=== PATIENT | female | born 1945 | race Caucasian/White ===

== ENCOUNTER 2017-01-06 18:53 | Emergency (ER) | payer MEDICARE ==
[~2017-01-06] VITALS: Ht 154.9 cm; Wt 86.5 kg
[~2017-01-06 18:53] MED LIST: ACID1TAB7 PO; ACLI400A2 INH; ALPR0.25 PO; ALPR0.254 PO; AMLO5TAB2 PO; ASPI-621 PO; ATOR40TA78 PO; CEFD300C37 PO; CITA20TA5 PO; CITA20TA9 PO; DOXY100T PO; ENOX40SY4 SQ; FURO-92 PO; FURO-93 PO; FURO20TA3 PO; FURO40TA6 PO; GABA300C10 PO; GUAI10LI PO; GUAI600T22 PO; HYDR1CAP PO; LORA10TA3 PO; MAGN400T26 PO; MECL25TA4 PO; METF500T PO; METF500T4 PO; METO200T3 PO; METO25TA35 PO; METO25TA35 PO/NG; METO5TAB5 PO; NADO20TA PO; OMEP-110 PO; OXYC10TA6 PO; OXYC5CAP4 PO; OXYC5TAB3 PO; POTA10TA5 PO; POTA20LI NG; POTA20TA14 PO; POTA20TA6 PO; PRAS10TA4 PO; RANI150T8 PO; ROPI1TAB PO; ROPI3TAB2 PO; SIMV10TA3 PO; SPIR25TA3 PO; SPIR50TA PO; TEMA30CA PO; TEMA30CA6 PO; VENL150C6 PO; VENL150T PO
[2017-01-06] MEDS ORDERED: PROCHLORPERAZINE 5 MG/ML, 2ML IVPush ONE (19:30)
[2017-01-06] MEDS ORDERED: SODIUM CHLORIDE 0.9% 1,000ML IVBOLUS ONE (19:30)
[2017-01-06] MEDS ORDERED: KETOROLAC 30 MG/1 ML IVPush ONE (19:30)
[2017-01-06] MEDS ORDERED: DIPHENHYDRAMINE 50 MG/ML, 1ML IVPush ONE (19:30)
[2017-01-06] MEDS ORDERED: SODIUM CHLORIDE FLUSH 10ML SYR IVF ONE (19:30)
[2017-01-06] MEDS ORDERED: DIPHENHYDRAMINE 50 MG/ML, 1ML ONE (19:39)
[2017-01-06] MEDS ORDERED: KETOROLAC 30 MG/1 ML ONE (19:39)
[2017-01-06] MEDS ORDERED: PROCHLORPERAZINE 5 MG/ML, 2ML ONE (19:40)
[2017-01-06 20:17] LABS: BLOOD UREA NITROGEN 22 mg/dL (7-18)
[2017-01-06 20:24] LABS: IS PT STATUS REG ER OR PRE ER? YES
[2017-01-06 20:32] LABS: PATH.CAST-FLAG NOT PRESENT; SPERM-FLAG NOT PRESENT; SRC-FLAG NOT PRESENT; XTAL-FLAG NOT PRESENT; YLC-FLAG NOT PRESENT
[2017-01-06] MEDS ORDERED: FENTANYL PF 100 MCG/2ML ONE (20:46)
[2017-01-06] MEDS ORDERED: FENTANYL PF 100 MCG/2ML IVPush ONE (21:00)
[2017-01-06 21:50] VITALS: BP 170/90
== END 2017-01-06 22:01 | disposition home or self-care (01) ==
LOC: ED 21:45
DX: G44.201 Tension-type headache, unspecified, intractable (principal); R31.29 Other microscopic hematuria; M79.605 Pain in left leg; M79.604 Pain in right leg; I11.0 Hypertensive heart disease with heart failure; I50.9 Heart failure, unspecified; E11.9 Type 2 diabetes mellitus without complications; K21.9 Gastro-esophageal reflux disease without esophagitis; I25.10 Atherosclerotic heart disease of native coronary artery without angina pectoris; Z90.710 Acquired absence of both cervix and uterus; Z87.891 Personal history of nicotine dependence
CPT/HCPCS: 36415; 80048; 81001; 82040; 84484; 85025; 93005; 96361; 96374; 96375; 99285; J0780; J1200; J1885; J3010; J7030

== ENCOUNTER → 2017-01-14 | Outpatient (CLI) | payer MEDICARE | END | disposition home or self-care (01) | LOC: CVU 13:11 | PROVIDERS: ATTEND Internal Medicine Cardiovascular Disease | DX: I65.22 Occlusion and stenosis of left carotid artery (principal) | CPT/HCPCS: 93880 ==

== ENCOUNTER 2017-02-12 06:24 | Inpatient (IN) | payer MEDICARE ==
[~2017-02-12] VITALS: Ht 154.9 cm; Wt 82.7 kg
[2017-02-12] MEDS ORDERED: SODIUM CHLORIDE 0.9% 1,000 ML IV ONE ×2 (06:32→09:34)
[2017-02-12] MEDS ORDERED: TEMA30CA PO (06:36)
[2017-02-12] MEDS ORDERED: OMEP-110 PO (06:36)
[2017-02-12] MEDS ORDERED: ONDANSETRON 2MG/ML, 2ML ONE (06:41)
[2017-02-12] MEDS ORDERED: HYDROmorphone 1 MG/ML, 1ML ONE (06:41)
[2017-02-12] MEDS ORDERED: SODIUM CHLORIDE FLUSH 10ML SYR IVF ONE ×2 (07:00→10:00)
[2017-02-12] MEDS ORDERED: ONDANSETRON 2MG/ML, 2ML IVPush ONE (07:00)
[2017-02-12] MEDS ORDERED: HYDROmorphone 1 MG/ML, 1ML IVPush PRN (07:00)
[2017-02-12] MEDS ORDERED: SODIUM CHLORIDE 0.9% 1,000ML IVBOLUS ONE (07:00)
[2017-02-12 07:35] LABS: ASPARTATE AMINO TRANSFERASE 24 U/L (15-37); BLOOD UREA NITROGEN 37 mg/dL (7-18)
[2017-02-12] MEDS ORDERED: OMNIPAQUE 350 MG/ML, 100ML BOTTLE ONE (08:22)
[2017-02-12] MEDS ORDERED: CEFTRIAXONE PMX 1GM/50ML 50 ML IVPB ONE (10:00)
[2017-02-12] MEDS ORDERED: ONDANSETRON ODT 4 MG PO PRN (10:30)
[2017-02-12] MEDS ORDERED: LABETALOL 5MG/ML, 20ML IVPush PRN (10:30)
[2017-02-12] MEDS ORDERED: ENALAPRILAT 1.25 MG/ML, 2ML IVPush PRN (10:30)
[2017-02-12 12:23] VITALS: BP 135/72
[2017-02-12] MEDS: HYDROmorphone 2 MG/ML, 1ML IVPush PRN ×2 (13:00→20:08)
[2017-02-12] MEDS: D5%-0.45NACL+KCL 20MEQ 1,000 ML IV SCH ×2 (13:01→23:23)
[2017-02-12] MEDS: HEPARIN 5,000 UNITS/ML, 1ML SQ SCH ×2 (13:01→21:31)
[2017-02-12] MEDS: CEFTRIAXONE PMX 1GM/50ML 50 ML IV SCH (13:01)
[2017-02-12] MEDS ORDERED: MAGNESIUM SULFATE PMX 2GM/50ML 50 ML IV ONE (15:00)
[2017-02-12] MEDS ORDERED: POTASSIUM CHLORIDE 40 MEQ in SODIUM CHLORIDE 0.9% 500 ML IV ONE (15:00)
[2017-02-12] MEDS ORDERED: SODIUM CHLORIDE 0.9% 1,000 ML IV SCH (16:00)
[2017-02-12] MEDS: INSULIN ASPART 100 UNITS/ML, PEN SQ-INSULIN SCH ×2 (16:00→21:00)
[2017-02-12 19:42] VITALS: BP 141/63
[2017-02-12] MEDS: TEMAZEPAM 30 MG CAPSULE PO SCH (21:00)
[2017-02-12] MEDS: GABAPENTIN 300 MG CAPSULE PO SCH (21:30)
[2017-02-12] MEDS: ATORVASTATIN 40 MG TABLET PO SCH (21:30)
[2017-02-12] MEDS: OMEPRAZOLE 20 MG CAPSULE.DR PO SCH (21:31)
[2017-02-12] MEDS: ROPINIROLE 1MG TABLET PO SCH (21:31)
[2017-02-13 02:11] VITALS: BP 134/71
[2017-02-13] MEDS: ACETAMINOPHEN 325 MG TABLET PO PRN ×2 (02:17→08:57)
[2017-02-13 05:08] LABS: BLOOD UREA NITROGEN 24 mg/dL (7-18)
[2017-02-13 05:11] LABS: ASPARTATE AMINO TRANSFERASE 20 U/L (15-37)
[2017-02-13] MEDS: HEPARIN 5,000 UNITS/ML, 1ML SQ SCH ×3 (05:45→21:00)
[2017-02-13] MEDS: ASPIRIN 81 MG TABLET EC PO SCH (05:45)
[2017-02-13] MEDS: INSULIN ASPART 100 UNITS/ML, PEN SQ-INSULIN SCH ×4 (07:00→21:00)
[2017-02-13] MEDS: OXYcodone IR 5MG TABLET PO PRN (08:53)
[2017-02-13] MEDS: VENLAFAXINE 75 MG CAP ER PO SCH (08:54)
[2017-02-13] MEDS: OMEPRAZOLE 20 MG CAPSULE.DR PO SCH ×2 (08:54→21:00)
[2017-02-13] MEDS: LORATADINE 10 MG TABLET PO SCH (08:54)
[2017-02-13] MEDS: GABAPENTIN 300 MG CAPSULE PO SCH ×3 (08:54→21:01)
[2017-02-13] MEDS: METOPROLOL SUCCINATE 100 MG TAB.ER.24H PO SCH (08:55)
[2017-02-13 09:39] VITALS: BP 134/71
[2017-02-13] MEDS: CEFTRIAXONE PMX 1GM/50ML 50 ML IV SCH (10:53)
[2017-02-13] MEDS: D5%-0.45NACL+KCL 20MEQ 1,000 ML IV SCH (10:53)
[2017-02-13 14:42] VITALS: BP 132/74
[2017-02-13] MEDS: CEFTRIAXONE PMX 2GM/50ML 50 ML IV SCH (16:32)
[2017-02-13] MEDS: BENZONATATE 100 MG CAPSULE PO SCH ×2 (16:33→21:00)
[2017-02-13 20:35] VITALS: BP 122/69
[2017-02-13] MEDS: ROPINIROLE 1MG TABLET PO SCH (21:00)
[2017-02-13] MEDS: TEMAZEPAM 30 MG CAPSULE PO SCH (21:00)
[2017-02-13] MEDS: ATORVASTATIN 40 MG TABLET PO SCH (21:00)
[2017-02-14 02:41] VITALS: BP 142/76
[2017-02-14] MEDS: ASPIRIN 81 MG TABLET EC PO SCH (05:44)
[2017-02-14] MEDS: HEPARIN 5,000 UNITS/ML, 1ML SQ SCH ×3 (05:44→21:25)
[2017-02-14] MEDS: INSULIN ASPART 100 UNITS/ML, PEN SQ-INSULIN SCH ×4 (07:00→21:00)
[2017-02-14 07:16] VITALS: BP 115/71
[2017-02-14] MEDS: VENLAFAXINE 75 MG CAP ER PO SCH (08:45)
[2017-02-14] MEDS: GABAPENTIN 300 MG CAPSULE PO SCH ×3 (08:46→21:25)
[2017-02-14] MEDS: OMEPRAZOLE 20 MG CAPSULE.DR PO SCH ×2 (08:46→21:25)
[2017-02-14] MEDS: METOPROLOL SUCCINATE 100 MG TAB.ER.24H PO SCH (08:47)
[2017-02-14] MEDS: BENZONATATE 100 MG CAPSULE PO SCH ×3 (08:47→21:25)
[2017-02-14] MEDS: LORATADINE 10 MG TABLET PO SCH (08:47)
[2017-02-14] MEDS: OXYcodone IR 5MG TABLET PO PRN ×2 (11:17→17:29)
[2017-02-14] MEDS: CEFTRIAXONE PMX 2GM/50ML 50 ML IV SCH (14:39)
[2017-02-14 14:44] VITALS: BP 114/70
[2017-02-14 19:00] VITALS: BP 145/76
[2017-02-14] MEDS: ROPINIROLE 1MG TABLET PO SCH (21:25)
[2017-02-14] MEDS: ATORVASTATIN 40 MG TABLET PO SCH (21:26)
[2017-02-14] MEDS: TEMAZEPAM 30 MG CAPSULE PO SCH (21:26)
[2017-02-15 03:05] VITALS: BP 134/61
[2017-02-15] MEDS: HEPARIN 5,000 UNITS/ML, 1ML SQ SCH ×2 (05:10→13:00)
[2017-02-15 05:33] LABS: BLOOD UREA NITROGEN 17 mg/dL (7-18)
[2017-02-15] MEDS: ASPIRIN 81 MG TABLET EC PO SCH (06:02)
[2017-02-15] MEDS: INSULIN ASPART 100 UNITS/ML, PEN SQ-INSULIN SCH ×4 (07:00→21:29)
[2017-02-15 07:19] VITALS: BP 129/74
[2017-02-15] MEDS: BENZONATATE 100 MG CAPSULE PO SCH ×3 (08:22→21:28)
[2017-02-15] MEDS: LORATADINE 10 MG TABLET PO SCH (08:22)
[2017-02-15] MEDS: GABAPENTIN 300 MG CAPSULE PO SCH ×3 (08:22→21:27)
[2017-02-15] MEDS: OMEPRAZOLE 20 MG CAPSULE.DR PO SCH ×2 (08:22→21:28)
[2017-02-15] MEDS: VENLAFAXINE 75 MG CAP ER PO SCH (08:22)
[2017-02-15] MEDS: METOPROLOL SUCCINATE 100 MG TAB.ER.24H PO SCH (08:23)
[2017-02-15] MEDS: CEFTRIAXONE PMX 2GM/50ML 50 ML IV SCH (14:39)
[2017-02-15] MEDS: PHENAZOPYRIDINE 200 MG TABLET PO SCH ×2 (17:19→21:28)
[2017-02-15] MEDS ORDERED: DIPHENOXYLATE/ATROPINE TABLET PO PRN (17:30)
[2017-02-15 17:32] VITALS: BP 154/66
[2017-02-15 19:24] VITALS: BP_SYST 130; BP_SYST 153; BP_DIAS 68; BP_DIAS 84
[2017-02-15] MEDS: ROPINIROLE 1MG TABLET PO SCH (21:28)
[2017-02-15] MEDS: TEMAZEPAM 30 MG CAPSULE PO SCH (21:29)
[2017-02-15] MEDS: OXYcodone IR 5MG TABLET PO PRN (21:30)
[2017-02-15] MEDS: ATORVASTATIN 40 MG TABLET PO SCH (21:30)
[2017-02-16 01:44] VITALS: BP 108/49
[2017-02-16] MEDS: OXYcodone IR 5MG TABLET PO PRN ×2 (02:41→08:54)
[2017-02-16] MEDS: ASPIRIN 81 MG TABLET EC PO SCH (06:13)
[2017-02-16 06:56] VITALS: BP 113/51
[2017-02-16] MEDS: INSULIN ASPART 100 UNITS/ML, PEN SQ-INSULIN SCH ×4 (07:00→21:00)
[2017-02-16] MEDS: OMEPRAZOLE 20 MG CAPSULE.DR PO SCH ×2 (08:54→21:34)
[2017-02-16] MEDS: LORATADINE 10 MG TABLET PO SCH (08:55)
[2017-02-16] MEDS: PHENAZOPYRIDINE 200 MG TABLET PO SCH ×3 (08:55→21:34)
[2017-02-16] MEDS: BENZONATATE 100 MG CAPSULE PO SCH ×3 (08:55→21:34)
[2017-02-16] MEDS: GABAPENTIN 300 MG CAPSULE PO SCH ×3 (08:55→21:34)
[2017-02-16] MEDS: VENLAFAXINE 75 MG CAP ER PO SCH (08:56)
[2017-02-16] MEDS: METOPROLOL SUCCINATE 100 MG TAB.ER.24H PO SCH (08:56)
[2017-02-16] MEDS: HEPARIN 5,000 UNITS/ML, 1ML SQ SCH ×2 (10:27→18:05)
[2017-02-16 13:22] VITALS: BP 126/62
[2017-02-16] MEDS ORDERED: CEFTRIAXONE PMX 2GM/50ML 50 ML IV SCH (14:30)
[2017-02-16 18:49] VITALS: BP 133/50
[2017-02-16] MEDS: ATORVASTATIN 40 MG TABLET PO SCH (21:34)
[2017-02-16] MEDS: SULFAMETH./TRIMETHOPRIM DS 800MG/160MG TABLET PO SCH (21:34)
[2017-02-16] MEDS: TEMAZEPAM 30 MG CAPSULE PO SCH (21:34)
[2017-02-16] MEDS: ROPINIROLE 1MG TABLET PO SCH (21:34)
[2017-02-17] MEDS: HEPARIN 5,000 UNITS/ML, 1ML SQ SCH ×3 (02:30→18:26)
[2017-02-17] MEDS: ASPIRIN 81 MG TABLET EC PO SCH (05:20)
[2017-02-17 06:09] LABS: BLOOD UREA NITROGEN 23 mg/dL (7-18)
[2017-02-17] MEDS: INSULIN ASPART 100 UNITS/ML, PEN SQ-INSULIN SCH ×4 (07:00→20:35)
[2017-02-17 07:15] VITALS: BP 137/58
[2017-02-17] MEDS ORDERED: PHEN-494 PO (07:27)
[2017-02-17] MEDS ORDERED: SULF1TAB3 PO (07:27)
[2017-02-17] MEDS: GABAPENTIN 300 MG CAPSULE PO SCH ×3 (08:21→20:37)
[2017-02-17] MEDS: PHENAZOPYRIDINE 200 MG TABLET PO SCH ×3 (08:21→20:37)
[2017-02-17] MEDS: SULFAMETH./TRIMETHOPRIM DS 800MG/160MG TABLET PO SCH ×2 (08:21→20:38)
[2017-02-17] MEDS: LORATADINE 10 MG TABLET PO SCH (08:21)
[2017-02-17] MEDS: BENZONATATE 100 MG CAPSULE PO SCH ×3 (08:21→20:38)
[2017-02-17] MEDS: OMEPRAZOLE 20 MG CAPSULE.DR PO SCH ×2 (08:22→20:37)
[2017-02-17] MEDS: VENLAFAXINE 75 MG CAP ER PO SCH (08:22)
[2017-02-17] MEDS: METOPROLOL SUCCINATE 100 MG TAB.ER.24H PO SCH (08:23)
[2017-02-17 13:53] VITALS: BP 121/73
[2017-02-17] MEDS: OXYcodone IR 5MG TABLET PO PRN ×2 (15:42→20:38)
[2017-02-17 19:12] VITALS: BP 128/74
[2017-02-17] MEDS: ATORVASTATIN 40 MG TABLET PO SCH (20:37)
[2017-02-17] MEDS: TEMAZEPAM 30 MG CAPSULE PO SCH (20:38)
[2017-02-17] MEDS: ROPINIROLE 1MG TABLET PO SCH (20:38)
[2017-02-18 01:18] VITALS: BP 125/77
[2017-02-18] MEDS: HEPARIN 5,000 UNITS/ML, 1ML SQ SCH ×3 (02:46→18:06)
[2017-02-18] MEDS: ASPIRIN 81 MG TABLET EC PO SCH (05:59)
[2017-02-18] MEDS ORDERED: METF500T4 PO (06:35)
[2017-02-18] MEDS: INSULIN ASPART 100 UNITS/ML, PEN SQ-INSULIN SCH (07:00)
[2017-02-18 08:00] VITALS: BP 120/71
[2017-02-18] MEDS: metFORMIN 500 MG TABLET PO SCH ×2 (08:13→16:38)
[2017-02-18] MEDS: BENZONATATE 100 MG CAPSULE PO SCH ×3 (08:13→21:00)
[2017-02-18] MEDS: SULFAMETH./TRIMETHOPRIM DS 800MG/160MG TABLET PO SCH ×2 (08:13→21:02)
[2017-02-18] MEDS: METOPROLOL SUCCINATE 100 MG TAB.ER.24H PO SCH (08:13)
[2017-02-18] MEDS: OMEPRAZOLE 20 MG CAPSULE.DR PO SCH ×2 (08:14→21:00)
[2017-02-18] MEDS: PHENAZOPYRIDINE 200 MG TABLET PO SCH ×3 (08:14→21:00)
[2017-02-18] MEDS: GABAPENTIN 300 MG CAPSULE PO SCH ×3 (08:14→21:00)
[2017-02-18] MEDS: VENLAFAXINE 75 MG CAP ER PO SCH (08:14)
[2017-02-18] MEDS: LORATADINE 10 MG TABLET PO SCH (08:14)
[2017-02-18 13:59] VITALS: BP 118/73
[2017-02-18 19:32] VITALS: BP 148/75
[2017-02-18] MEDS: OXYcodone IR 5MG TABLET PO PRN (21:00)
[2017-02-18] MEDS: ATORVASTATIN 40 MG TABLET PO SCH (21:00)
[2017-02-18] MEDS: ROPINIROLE 1MG TABLET PO SCH (21:02)
[2017-02-18] MEDS: TEMAZEPAM 30 MG CAPSULE PO SCH (21:02)
[2017-02-19 03:17] VITALS: BP 136/72
[2017-02-19] MEDS: HEPARIN 5,000 UNITS/ML, 1ML SQ SCH ×2 (03:24→10:53)
[2017-02-19] MEDS: ASPIRIN 81 MG TABLET EC PO SCH (05:42)
[2017-02-19 07:33] VITALS: BP 130/78
[2017-02-19] MEDS: OXYcodone IR 5MG TABLET PO PRN (07:50)
[2017-02-19] MEDS: GABAPENTIN 300 MG CAPSULE PO SCH ×2 (07:51→16:52)
[2017-02-19] MEDS: METOPROLOL SUCCINATE 100 MG TAB.ER.24H PO SCH (07:51)
[2017-02-19] MEDS: VENLAFAXINE 75 MG CAP ER PO SCH (07:51)
[2017-02-19] MEDS: OMEPRAZOLE 20 MG CAPSULE.DR PO SCH (07:51)
[2017-02-19] MEDS: LORATADINE 10 MG TABLET PO SCH (07:52)
[2017-02-19] MEDS: SULFAMETH./TRIMETHOPRIM DS 800MG/160MG TABLET PO SCH (07:52)
[2017-02-19] MEDS: BENZONATATE 100 MG CAPSULE PO SCH ×2 (07:52→16:52)
[2017-02-19] MEDS: PHENAZOPYRIDINE 200 MG TABLET PO SCH ×2 (07:52→16:52)
[2017-02-19] MEDS: metFORMIN 500 MG TABLET PO SCH ×2 (08:00→16:53)
[2017-02-19 14:00] VITALS: BP 135/80
[2017-02-19 15:06] VITALS: BP 146/82
== END 2017-02-19 17:00 | DRG 871 ==
LOC: ED 06:59 → EDIP 09:34 → 3NE 10:35
PROVIDERS: ADMIT Family Medicine; ATTEND Family Medicine
DX: A41.9 Sepsis, unspecified organism (principal); E43 Unspecified severe protein-calorie malnutrition; N10 Acute pyelonephritis; K52.9 Noninfective gastroenteritis and colitis, unspecified; G25.81 Restless legs syndrome; B96.20 Unspecified Escherichia coli [E. coli] as the cause of diseases classified elsewhere; D69.6 Thrombocytopenia, unspecified; E86.0 Dehydration; I11.0 Hypertensive heart disease with heart failure; I50.9 Heart failure, unspecified; I25.10 Atherosclerotic heart disease of native coronary artery without angina pectoris; J44.9 Chronic obstructive pulmonary disease, unspecified; K21.9 Gastro-esophageal reflux disease without esophagitis; E11.9 Type 2 diabetes mellitus without complications; K74.60 Unspecified cirrhosis of liver; K40.90 Unilateral inguinal hernia, without obstruction or gangrene, not specified as recurrent; R39.15 Urgency of urination; N30.91 Cystitis, unspecified with hematuria; Z85.72 Personal history of non-Hodgkin lymphomas; Z79.84 Long term (current) use of oral hypoglycemic drugs; Z86.14 Personal history of Methicillin resistant Staphylococcus aureus infection; Z87.891 Personal history of nicotine dependence; Z95.1 Presence of aortocoronary bypass graft; Z95.5 Presence of coronary angioplasty implant and graft; Z90.710 Acquired absence of both cervix and uterus; Z88.5 Allergy status to narcotic agent; Z88.8 Allergy status to other drugs, medicaments and biological substances
CPT/HCPCS: 36415; 74177; 80048; 80053; 81001; 82962; 83036; 83605; 83690; 83735; 84443; 84484; 85025; 85610; 85730; 86140; 87040; 87077; 87086; 87186; 87324; 93005; 96374; 96375; J0696; J1170; J1644; J1815; J2405; J3480; Q9967; J3475; J7030; J7040

== ENCOUNTER 2017-03-09 09:10 | Inpatient (IN) | payer MEDICARE ==
[~2017-03-09] VITALS: Ht 154.9 cm; Wt 90.0 kg
[~2017-03-09 09:10] MED LIST changes: +PHEN-494 PO; +SULF1TAB3 PO
[2017-03-09] MEDS ORDERED: SODIUM CHLORIDE 0.9% 1,000 ML IV ONE (09:52)
[2017-03-09] MEDS ORDERED: MAALOX/HYOSCYAMINE/LIDOCAINE 45 ML BOTTLE PO ONE (10:00)
[2017-03-09] MEDS ORDERED: FAMOTIDINE 20 MG/2 ML IVP ONE (10:00)
[2017-03-09] MEDS ORDERED: SODIUM CHLORIDE 0.9% 1,000ML IVBOLUS ONE (10:00)
[2017-03-09] MEDS ORDERED: MORPHINE SULFATE 4 MG/ML, 1ML IVPush PRN (10:00)
[2017-03-09] MEDS ORDERED: ONDANSETRON 2MG/ML, 2ML IVPush ONE (10:00)
[2017-03-09] MEDS ORDERED: FAMOTIDINE 20 MG/2 ML ONE (10:10)
[2017-03-09] MEDS ORDERED: MAALOX/HYOSCYAMINE/LIDOCAINE 45 ML BOTTLE ONE (10:10)
[2017-03-09] MEDS ORDERED: ONDANSETRON 2MG/ML, 2ML ONE (10:10)
[2017-03-09] MEDS ORDERED: MORPHINE SULFATE 4 MG/ML, 1ML ONE (10:10)
[2017-03-09] MEDS ORDERED: CEFTRIAXONE PMX 1GM/50ML 50 ML IV ONE (11:00)
[2017-03-09 11:29] LABS: ASPARTATE AMINO TRANSFERASE 31 U/L (15-37); BLOOD UREA NITROGEN 15 mg/dL (7-18)
[2017-03-09] MEDS ORDERED: CEFTRIAXONE PMX 1GM/50ML 50 ML ONE (11:40)
[2017-03-09] MEDS ORDERED: ONDANSETRON 2MG/ML, 2ML IVPush PRN (14:00)
[2017-03-09] MEDS ORDERED: ENOXAPARIN 40 MG/0.4 ML SQ SCH (14:00)
[2017-03-09] MEDS ORDERED: VANCOMYCIN PER PHARMACY MC PRN (14:00)
[2017-03-09] MEDS ORDERED: ALBUTEROL/IPRATROPIUM 2.5MG/0.5MG, 3 ML NPPB PRN (15:00)
[2017-03-09] MEDS ORDERED: PHARMACOKINETIC MONITORING MC PRN (15:00)
[2017-03-09 15:19] VITALS: BP 160/72
[2017-03-09] MEDS: NS + 20MEQ KCL 1,000 ML IV SCH (15:39)
[2017-03-09] MEDS: VANCOMYCIN 1,300 MG in SODIUM CHLORIDE 0.9% 250 ML IV SCH (15:39)
[2017-03-09] MEDS: PIPERACILLIN/TAZO/PMX 3.375GM 50 ML IV SCH ×2 (18:48→20:31)
[2017-03-09 19:54] VITALS: BP 145/72
[2017-03-09] MEDS: GUAIFENESIN/DM 100-10MG, 5ML UDC PO PRN (21:45)
[2017-03-10 03:05] VITALS: BP_SYST 149; BP_SYST 152; BP_DIAS 70; BP_DIAS 75
[2017-03-10] MEDS: PIPERACILLIN/TAZO/PMX 3.375GM 50 ML IV SCH ×4 (03:29→20:17)
[2017-03-10 06:32] LABS: BLOOD UREA NITROGEN 12 mg/dL (7-18)
[2017-03-10 06:35] LABS: ASPARTATE AMINO TRANSFERASE 32 U/L (15-37)
[2017-03-10] MEDS: NS + 20MEQ KCL 1,000 ML IV SCH (08:29)
[2017-03-10 09:25] VITALS: BP 134/71
[2017-03-10] MEDS ORDERED: LOPERAMIDE 2 MG CAPSULE PO ONE (14:00)
[2017-03-10 15:00] VITALS: BP 147/79
[2017-03-10] MEDS: LOPERAMIDE 2 MG CAPSULE PO PRN ×2 (16:28→22:26)
[2017-03-10] MEDS: GUAIFENESIN/DM 100-10MG, 5ML UDC PO PRN (19:03)
[2017-03-10 19:18] VITALS: BP 166/79
[2017-03-11 01:47] VITALS: BP 155/73
[2017-03-11] MEDS: NS + 20MEQ KCL 1,000 ML IV SCH ×2 (02:38→17:44)
[2017-03-11] MEDS: PIPERACILLIN/TAZO/PMX 3.375GM 50 ML IV SCH ×4 (02:38→20:41)
[2017-03-11] MEDS: LOPERAMIDE 2 MG CAPSULE PO PRN (03:34)
[2017-03-11] MEDS: VANCOMYCIN 1,300 MG in SODIUM CHLORIDE 0.9% 250 ML IV SCH (03:34)
[2017-03-11 05:27] LABS: BLOOD UREA NITROGEN 13 mg/dL (7-18)
[2017-03-11 07:30] VITALS: BP 99/58
[2017-03-11 13:52] VITALS: BP 172/74
[2017-03-11] MEDS: GABAPENTIN 300 MG CAPSULE PO SCH ×2 (17:43→20:43)
[2017-03-11] MEDS: OXYcodone IR 5MG TABLET PO SCH ×2 (17:43→23:31)
[2017-03-11 19:16] VITALS: BP 166/73
[2017-03-11] MEDS: FUROSEMIDE 20 MG TABLET PO SCH (20:42)
[2017-03-11] MEDS: OMEPRAZOLE 20 MG CAPSULE.DR PO SCH (20:42)
[2017-03-11] MEDS: ATORVASTATIN 40 MG TABLET PO SCH (20:42)
[2017-03-11] MEDS: ROPINIROLE 1MG TABLET PO SCH (20:43)
[2017-03-11] MEDS: TEMAZEPAM 30 MG CAPSULE PO SCH (23:31)
[2017-03-11] MEDS: GUAIFENESIN/DM 100-10MG, 5ML UDC PO PRN (23:31)
[2017-03-12 01:20] VITALS: BP 145/71
[2017-03-12] MEDS: PIPERACILLIN/TAZO/PMX 3.375GM 50 ML IV SCH ×4 (02:13→21:14)
[2017-03-12] MEDS: OXYcodone IR 5MG TABLET PO SCH ×4 (06:30→21:15)
[2017-03-12] MEDS: ASPIRIN 81 MG TABLET EC PO SCH (06:30)
[2017-03-12 06:35] VITALS: BP 136/63
[2017-03-12] MEDS: GABAPENTIN 300 MG CAPSULE PO SCH ×3 (08:39→21:15)
[2017-03-12] MEDS: FUROSEMIDE 20 MG TABLET PO SCH ×2 (08:39→21:16)
[2017-03-12] MEDS: LORATADINE 10 MG TABLET PO SCH (08:39)
[2017-03-12] MEDS: OMEPRAZOLE 20 MG CAPSULE.DR PO SCH ×2 (08:39→16:44)
[2017-03-12] MEDS: METOPROLOL SUCCINATE 100 MG TAB.ER.24H PO SCH (08:39)
[2017-03-12] MEDS: VENLAFAXINE 75 MG CAP ER PO SCH (08:40)
[2017-03-12] MEDS: VANCOMYCIN 1,500 MG in SODIUM CHLORIDE 0.9% 250 ML IV SCH (11:10)
[2017-03-12] MEDS: NS + 20MEQ KCL 1,000 ML IV SCH (11:21)
[2017-03-12 13:52] VITALS: BP 126/74
[2017-03-12] MEDS: LOPERAMIDE 2 MG CAPSULE PO PRN ×2 (14:37→21:15)
[2017-03-12 20:08] VITALS: BP 118/55
[2017-03-12] MEDS: TEMAZEPAM 30 MG CAPSULE PO SCH (21:14)
[2017-03-12] MEDS: ATORVASTATIN 40 MG TABLET PO SCH (21:15)
[2017-03-12] MEDS: ROPINIROLE 1MG TABLET PO SCH (21:15)
[2017-03-13] MEDS: NS + 20MEQ KCL 1,000 ML IV SCH ×2 (03:03→12:40)
[2017-03-13] MEDS: PIPERACILLIN/TAZO/PMX 3.375GM 50 ML IV SCH ×4 (03:03→20:31)
[2017-03-13 04:02] VITALS: BP 104/66
[2017-03-13] MEDS: ASPIRIN 81 MG TABLET EC PO SCH (05:32)
[2017-03-13] MEDS: OXYcodone IR 5MG TABLET PO SCH ×3 (05:33→16:00)
[2017-03-13 07:01] VITALS: BP 127/76
[2017-03-13] MEDS: LORATADINE 10 MG TABLET PO SCH (08:29)
[2017-03-13] MEDS: VENLAFAXINE 75 MG CAP ER PO SCH (08:29)
[2017-03-13] MEDS: OMEPRAZOLE 20 MG CAPSULE.DR PO SCH ×2 (08:29→17:24)
[2017-03-13] MEDS: FUROSEMIDE 20 MG TABLET PO SCH ×2 (08:30→20:32)
[2017-03-13] MEDS: GABAPENTIN 300 MG CAPSULE PO SCH ×3 (08:30→20:32)
[2017-03-13] MEDS: METOPROLOL SUCCINATE 100 MG TAB.ER.24H PO SCH (08:31)
[2017-03-13] MEDS: VANCOMYCIN 1,500 MG in SODIUM CHLORIDE 0.9% 250 ML IV SCH (11:22)
[2017-03-13 12:28] VITALS: BP 132/73
[2017-03-13] MEDS ORDERED: NS + 20MEQ KCL 1,000 ML IV SCH (13:00)
[2017-03-13] MEDS ORDERED: FUROSEMIDE 40 MG/4 ML IV ONE (16:30)
[2017-03-13] MEDS ORDERED: POTASSIUM CHLORIDE 20 MEQ TAB.ER.PRT PO ONE (16:30)
[2017-03-13 18:33] VITALS: BP 121/70
[2017-03-13] MEDS: LOPERAMIDE 2 MG CAPSULE PO PRN ×2 (20:31→23:20)
[2017-03-13] MEDS: TEMAZEPAM 30 MG CAPSULE PO SCH (20:31)
[2017-03-13] MEDS: ATORVASTATIN 40 MG TABLET PO SCH (20:32)
[2017-03-13] MEDS: ROPINIROLE 1MG TABLET PO SCH (20:32)
[2017-03-14 00:43] VITALS: BP 124/74
[2017-03-14] MEDS: GUAIFENESIN/DM 200-20MG, 10ML UDC PO PRN ×2 (02:50→19:48)
[2017-03-14] MEDS: PIPERACILLIN/TAZO/PMX 3.375GM 50 ML IV SCH (02:50)
[2017-03-14] MEDS: ASPIRIN 81 MG TABLET EC PO SCH (05:12)
[2017-03-14 05:32] LABS: BLOOD UREA NITROGEN 20 mg/dL (7-18)
[2017-03-14 07:08] VITALS: BP 124/51
[2017-03-14] MEDS ORDERED: DOXY100T PO (07:45)
[2017-03-14] MEDS ORDERED: POTA10CA PO (07:45)
[2017-03-14] MEDS ORDERED: CEFD300C37 PO (07:45)
[2017-03-14] MEDS ORDERED: LACT1CAP24 PO (07:45)
[2017-03-14] MEDS: DOXYCYCLINE 100MG TABLET PO SCH ×2 (08:54→19:49)
[2017-03-14] MEDS: METOPROLOL SUCCINATE 100 MG TAB.ER.24H PO SCH (08:54)
[2017-03-14] MEDS: CEFDINIR 300 MG CAPSULE PO SCH ×2 (08:54→19:50)
[2017-03-14] MEDS: GABAPENTIN 300 MG CAPSULE PO SCH ×3 (08:54→19:50)
[2017-03-14] MEDS: FUROSEMIDE 20 MG TABLET PO SCH ×2 (08:55→19:50)
[2017-03-14] MEDS: LORATADINE 10 MG TABLET PO SCH (08:55)
[2017-03-14] MEDS: OMEPRAZOLE 20 MG CAPSULE.DR PO SCH ×2 (08:55→17:17)
[2017-03-14] MEDS: VENLAFAXINE 75 MG CAP ER PO SCH (08:55)
[2017-03-14] MEDS: LOPERAMIDE 2 MG CAPSULE PO PRN ×2 (09:30→19:48)
[2017-03-14 13:20] VITALS: BP 112/49
[2017-03-14 19:13] VITALS: BP 114/64
[2017-03-14] MEDS: ATORVASTATIN 40 MG TABLET PO SCH (19:50)
[2017-03-14] MEDS: ROPINIROLE 1MG TABLET PO SCH (19:50)
[2017-03-14] MEDS: TEMAZEPAM 30 MG CAPSULE PO SCH (22:00)
[2017-03-15] MEDS: LOPERAMIDE 2 MG CAPSULE PO PRN ×3 (00:35→09:42)
[2017-03-15 00:53] VITALS: BP 148/75
[2017-03-15] MEDS: GUAIFENESIN/DM 200-20MG, 10ML UDC PO PRN ×2 (02:47→21:33)
[2017-03-15] MEDS: ASPIRIN 81 MG TABLET EC PO SCH (05:29)
[2017-03-15 07:18] VITALS: BP 126/68
[2017-03-15] MEDS: OMEPRAZOLE 20 MG CAPSULE.DR PO SCH ×2 (09:39→16:27)
[2017-03-15] MEDS: VENLAFAXINE 75 MG CAP ER PO SCH (09:40)
[2017-03-15] MEDS: LORATADINE 10 MG TABLET PO SCH (09:40)
[2017-03-15] MEDS: FUROSEMIDE 20 MG TABLET PO SCH ×2 (09:40→21:33)
[2017-03-15] MEDS: CEFDINIR 300 MG CAPSULE PO SCH ×2 (09:41→21:33)
[2017-03-15] MEDS: GABAPENTIN 300 MG CAPSULE PO SCH ×3 (09:41→21:33)
[2017-03-15] MEDS: METOPROLOL SUCCINATE 100 MG TAB.ER.24H PO SCH (09:42)
[2017-03-15] MEDS: DOXYCYCLINE 100MG TABLET PO SCH ×2 (09:42→21:32)
[2017-03-15 13:40] VITALS: BP 129/66
[2017-03-15] MEDS: ONDANSETRON ODT 4 MG PO PRN (13:54)
[2017-03-15] MEDS: OXYcodone IR 5MG TABLET PO PRN (13:54)
[2017-03-15 15:37] LABS: BLOOD UREA NITROGEN 17 mg/dL (7-18)
[2017-03-15] MEDS ORDERED: LOPERAMIDE 2 MG CAPSULE PO PRN (17:00)
[2017-03-15 18:42] VITALS: BP 111/65
[2017-03-15] MEDS: TEMAZEPAM 30 MG CAPSULE PO SCH (21:32)
[2017-03-15] MEDS: ATORVASTATIN 40 MG TABLET PO SCH (21:33)
[2017-03-15] MEDS: ROPINIROLE 1MG TABLET PO SCH (21:33)
[2017-03-16 01:19] VITALS: BP 130/77
[2017-03-16] MEDS: LOPERAMIDE 2 MG CAPSULE PO PRN ×2 (04:23→16:01)
[2017-03-16 06:00] LABS: BLOOD UREA NITROGEN 18 mg/dL (7-18)
[2017-03-16] MEDS: ASPIRIN 81 MG TABLET EC PO SCH (06:14)
[2017-03-16 07:34] VITALS: BP 121/70
[2017-03-16] MEDS ORDERED: POTASSIUM CHLORIDE 20 MEQ TAB.ER.PRT PO ONE (08:00)
[2017-03-16] MEDS: CEFDINIR 300 MG CAPSULE PO SCH ×2 (10:14→19:57)
[2017-03-16] MEDS: OMEPRAZOLE 20 MG CAPSULE.DR PO SCH ×2 (10:14→16:01)
[2017-03-16] MEDS: METOPROLOL SUCCINATE 100 MG TAB.ER.24H PO SCH (10:14)
[2017-03-16] MEDS: FUROSEMIDE 20 MG TABLET PO SCH ×2 (10:14→19:57)
[2017-03-16] MEDS: LORATADINE 10 MG TABLET PO SCH (10:14)
[2017-03-16] MEDS: DOXYCYCLINE 100MG TABLET PO SCH ×2 (10:14→19:57)
[2017-03-16] MEDS: GABAPENTIN 300 MG CAPSULE PO SCH ×3 (10:14→19:57)
[2017-03-16] MEDS: VENLAFAXINE 75 MG CAP ER PO SCH (10:15)
[2017-03-16 12:50] VITALS: BP 149/76
[2017-03-16] MEDS: ONDANSETRON ODT 4 MG PO PRN (15:05)
[2017-03-16] MEDS: SODIUM CHLORIDE 0.9% 1,000 ML IV SCH (18:25)
[2017-03-16] MEDS: ROPINIROLE 1MG TABLET PO SCH (19:57)
[2017-03-16] MEDS: ATORVASTATIN 40 MG TABLET PO SCH (19:57)
[2017-03-16 20:11] VITALS: BP 136/74
[2017-03-16] MEDS: TEMAZEPAM 30 MG CAPSULE PO SCH (21:31)
[2017-03-16] MEDS: GUAIFENESIN/DM 200-20MG, 10ML UDC PO PRN (21:34)
[2017-03-16] MEDS: OXYcodone IR 5MG TABLET PO PRN (23:16)
[2017-03-17 03:01] VITALS: BP 132/74
[2017-03-17] MEDS: ASPIRIN 81 MG TABLET EC PO SCH (05:31)
[2017-03-17] MEDS: SODIUM CHLORIDE 0.9% 1,000 ML IV SCH ×2 (05:32→15:42)
[2017-03-17] MEDS: GUAIFENESIN/DM 200-20MG, 10ML UDC PO PRN (05:42)
[2017-03-17] MEDS: LOPERAMIDE 2 MG CAPSULE PO PRN (06:44)
[2017-03-17] MEDS: LORATADINE 10 MG TABLET PO SCH (09:20)
[2017-03-17] MEDS: OMEPRAZOLE 20 MG CAPSULE.DR PO SCH ×2 (09:20→17:32)
[2017-03-17] MEDS: FUROSEMIDE 20 MG TABLET PO SCH ×2 (09:21→21:29)
[2017-03-17] MEDS: VENLAFAXINE 75 MG CAP ER PO SCH (09:21)
[2017-03-17] MEDS: GABAPENTIN 300 MG CAPSULE PO SCH ×3 (09:22→21:30)
[2017-03-17] MEDS: DOXYCYCLINE 100MG TABLET PO SCH ×2 (09:22→21:29)
[2017-03-17] MEDS: CEFDINIR 300 MG CAPSULE PO SCH ×2 (09:22→21:29)
[2017-03-17] MEDS: METOPROLOL SUCCINATE 100 MG TAB.ER.24H PO SCH (09:22)
[2017-03-17 09:38] VITALS: BP 112/63
[2017-03-17 13:00] VITALS: BP 110/54
[2017-03-17 18:43] VITALS: BP 118/62
[2017-03-17] MEDS: TEMAZEPAM 30 MG CAPSULE PO SCH (21:29)
[2017-03-17] MEDS: ATORVASTATIN 40 MG TABLET PO SCH (21:29)
[2017-03-17] MEDS: ROPINIROLE 1MG TABLET PO SCH (21:30)
[2017-03-18 00:48] VITALS: BP 125/67
[2017-03-18] MEDS: GUAIFENESIN/DM 200-20MG, 10ML UDC PO PRN (00:52)
[2017-03-18] MEDS: SODIUM CHLORIDE 0.9% 1,000 ML IV SCH ×2 (00:52→09:59)
[2017-03-18] MEDS: ASPIRIN 81 MG TABLET EC PO SCH (05:09)
[2017-03-18] MEDS: LOPERAMIDE 2 MG CAPSULE PO PRN (05:09)
[2017-03-18 06:54] VITALS: BP 125/75
[2017-03-18] MEDS: OMEPRAZOLE 20 MG CAPSULE.DR PO SCH (09:52)
[2017-03-18] MEDS: LORATADINE 10 MG TABLET PO SCH (09:52)
[2017-03-18] MEDS: VENLAFAXINE 75 MG CAP ER PO SCH (09:52)
[2017-03-18] MEDS: FUROSEMIDE 20 MG TABLET PO SCH (09:53)
[2017-03-18] MEDS: GABAPENTIN 300 MG CAPSULE PO SCH (09:54)
[2017-03-18] MEDS: CEFDINIR 300 MG CAPSULE PO SCH (09:54)
[2017-03-18] MEDS: DOXYCYCLINE 100MG TABLET PO SCH (09:55)
[2017-03-18 13:27] VITALS: BP 145/76
[2017-03-18] MEDS ORDERED: DOXY100T PO (14:11)
[2017-03-18] MEDS ORDERED: CEFD300C37 PO (14:11)
== END 2017-03-18 15:58 | DRG 291 ==
LOC: ED 09:59 → EDIP 12:53 → 3NE 14:24
PROVIDERS: ADMIT Internal Medicine; ATTEND Internal Medicine
PROC: 0T9B70Z Drainage of Bladder with Drainage Device, Via Natural or Artificial Opening (ICD-10-PCS; principal; 2017-03-09)
DX: I11.0 Hypertensive heart disease with heart failure (principal); J15.1 Pneumonia due to Pseudomonas; E43 Unspecified severe protein-calorie malnutrition; J44.0 Chronic obstructive pulmonary disease with (acute) lower respiratory infection; D61.818 Other pancytopenia; N39.0 Urinary tract infection, site not specified; J44.1 Chronic obstructive pulmonary disease with (acute) exacerbation; I50.32 Chronic diastolic (congestive) heart failure; E87.6 Hypokalemia; F32.9 Major depressive disorder, single episode, unspecified; G25.81 Restless legs syndrome; E11.42 Type 2 diabetes mellitus with diabetic polyneuropathy; I25.10 Atherosclerotic heart disease of native coronary artery without angina pectoris; K21.9 Gastro-esophageal reflux disease without esophagitis; K52.9 Noninfective gastroenteritis and colitis, unspecified; K70.30 Alcoholic cirrhosis of liver without ascites; Z79.84 Long term (current) use of oral hypoglycemic drugs; Z68.37 Body mass index [BMI] 37.0-37.9, adult; Z87.891 Personal history of nicotine dependence; Z95.1 Presence of aortocoronary bypass graft; Z95.5 Presence of coronary angioplasty implant and graft; Z90.710 Acquired absence of both cervix and uterus; Z88.6 Allergy status to analgesic agent; Z88.5 Allergy status to narcotic agent; Z88.8 Allergy status to other drugs, medicaments and biological substances; Z82.5 Family history of asthma and other chronic lower respiratory diseases; Z82.49 Family history of ischemic heart disease and other diseases of the circulatory system; Z83.3 Family history of diabetes mellitus; Z80.7 Family history of other malignant neoplasms of lymphoid, hematopoietic and related tissues
CPT/HCPCS: 36415; 74022; 80048; 80053; 80202; 81001; 82705; 83605; 83690; 83735; 84100; 85025; 87040; 87046; 87086; 87324; 87328; 87329; 89055; 93005; 96361; 96365; 96375; J0696; J1650; J1940; J2405; J2543; J3370; J3480; Q0162; J7030; J7050; S0028

== ENCOUNTER 2017-04-12 07:35 | Emergency (ER) | payer MEDICARE ==
[~2017-04-12] VITALS: Ht 154.9 cm; Wt 80.0 kg
[~2017-04-12 07:35] MED LIST changes: +LACT1CAP24 PO; +POTA10CA PO
[2017-04-12] MEDS ORDERED: SODIUM CHLORIDE FLUSH 10ML SYR IVF ONE (08:00)
[2017-04-12 08:32] LABS: ASPARTATE AMINO TRANSFERASE 40 U/L (15-37); BLOOD UREA NITROGEN 21 mg/dL (7-18)
[2017-04-12 08:37] LABS: HEMATOCRIT 37.2 % (34.6-47.8); WHITE BLOOD COUNT 4.6 x10^3/uL (3.4-10)
[2017-04-12 08:46] LABS: IS PT STATUS REG ER OR PRE ER? YES
[2017-04-12 09:03] LABS: PATH.CAST-FLAG NOT PRESENT; SPERM-FLAG NOT PRESENT; SRC-FLAG NOT PRESENT; XTAL-FLAG NOT PRESENT; YLC-FLAG NOT PRESENT
[2017-04-12] MEDS ORDERED: ATOR20TA9 PO (09:15)
[2017-04-12] MEDS ORDERED: MULT-717 PO (09:15)
[2017-04-12] MEDS ORDERED: MAGN400T7 PO (09:15)
[2017-04-12] MEDS ORDERED: areds2 PO (09:15)
[2017-04-12] MEDS ORDERED: GABA300C10 PO (09:15)
[2017-04-12] MEDS ORDERED: SPIR25TA3 PO (09:15)
[2017-04-12] MEDS ORDERED: CALC-76 PO (09:15)
[2017-04-12] MEDS ORDERED: BENZ100C4 PO (09:15)
[2017-04-12] MEDS ORDERED: ASCO500C2 PO (09:15)
[2017-04-12] MEDS ORDERED: MECL-76 PO (09:15)
[2017-04-12] MEDS ORDERED: ONDA4TAB13 SL (09:15)
[2017-04-12] MEDS ORDERED: METF10002 PO (09:15)
[2017-04-12 11:33] VITALS: BP 159/68
== END 2017-04-12 11:35 | disposition home or self-care (01) ==
LOC: ED 11:23
DX: K52.9 Noninfective gastroenteritis and colitis, unspecified (principal); R60.0 Localized edema; I11.0 Hypertensive heart disease with heart failure; I50.9 Heart failure, unspecified; E11.9 Type 2 diabetes mellitus without complications; K21.9 Gastro-esophageal reflux disease without esophagitis; M19.90 Unspecified osteoarthritis, unspecified site; J44.9 Chronic obstructive pulmonary disease, unspecified; K74.60 Unspecified cirrhosis of liver; I25.10 Atherosclerotic heart disease of native coronary artery without angina pectoris; Z95.1 Presence of aortocoronary bypass graft; Z87.891 Personal history of nicotine dependence
CPT/HCPCS: 36415; 71010; 80053; 81001; 83605; 83880; 84484; 85025; 93005; 99285

== ENCOUNTER 2017-07-20 16:42 | Inpatient (IN) | payer MEDICARE ==
[~2017-07-20] VITALS: Ht 154.9 cm; Wt 88.1 kg
[~2017-07-20 16:42] MED LIST changes: +ALBU18HF INH; +ASCO500C2 PO; +ATOR20TA9 PO; +BENZ-17 PO; +CALC-76 PO; -GUAI600T22 PO; +GUAI600T31 PO; +LOPE2CAP PO; +MAGN400T7 PO; +MECL-76 PO; +METF10002 PO; -METO200T3 PO; +METO200T5 PO; +MULT-717 PO; +MULT1TAB9 PO; +ONDA4TAB13 SL; +OXYC5CAP2 PO; -OXYC5CAP4 PO; -PHEN-494 PO; +PHEN-583 PO; +SULF-169 PO; -SULF1TAB3 PO; +areds2 PO
[2017-07-20] MEDS ORDERED: SODIUM CHLORIDE FLUSH 10ML SYR IVF ONE (17:00)
[2017-07-20] MEDS ORDERED: NITROGLYCERIN SINGLE TAB 0.4 MG SL ONE (17:07)
[2017-07-20] MEDS: NITROGLYCERIN SINGLE TAB 0.4 MG SL PRN ×2 (17:11→17:22)
[2017-07-20 17:19] LABS: HEMATOCRIT 40.1 % (34.6-47.8); HEMOGLOBIN 13.2 g/dL (11.7-16.4); WHITE BLOOD COUNT 3.3 x10^3/uL (3.4-10)
[2017-07-20 17:26] LABS: ASPARTATE AMINO TRANSFERASE 23 U/L (15-37); BLOOD UREA NITROGEN 12 mg/dL (7-18)
[2017-07-20 17:31] LABS: IS PT STATUS REG ER OR PRE ER? YES
[2017-07-20] MEDS ORDERED: SODIUM CHLORIDE 0.9% 1,000 ML IV ONE (17:41)
[2017-07-20] MEDS ORDERED: OXYcodone/APAP 5/325MG TABLET ONE (17:45)
[2017-07-20] MEDS ORDERED: ONDANSETRON 2MG/ML, 2ML ONE (17:45)
[2017-07-20] MEDS ORDERED: SODIUM CHLORIDE FLUSH 10ML SYR IVF PRN (18:00)
[2017-07-20] MEDS ORDERED: OXYcodone/APAP 5/325MG TABLET PO ONE (18:00)
[2017-07-20] MEDS ORDERED: ONDANSETRON 2MG/ML, 2ML IVPush ONE (18:00)
[2017-07-20] MEDS ORDERED: OXYcodone IR 5MG TABLET PO PRN (18:30)
[2017-07-20] MEDS ORDERED: ALBUTEROL SULFATE 2.5 MG/3 ML HHN PRN (18:30)
[2017-07-20] MEDS ORDERED: NITROGLYCERIN 0.4 MG/SPRAY SL PRN (18:30)
[2017-07-20] MEDS ORDERED: NITROGLYCERIN 0.4 MG BOTTLE (25 TABS) SL PRN ×2 (18:30)
[2017-07-20] MEDS ORDERED: ONDANSETRON ODT 4 MG PO PRN (18:30)
[2017-07-20] MEDS ORDERED: hydrALAzine 20 MG/ML, 1ML IVPush PRN (18:30)
[2017-07-20 19:18] LABS: IS PT STATUS REG ER OR PRE ER? NO
[2017-07-20] MEDS ORDERED: ALBUTEROL SULFATE 2.5 MG/3 ML NPPB PRN (19:30)
[2017-07-20] MEDS ORDERED: GLUCAGON 1 MG IM PRN ×2 (20:00)
[2017-07-20] MEDS ORDERED: DEXTROSE 50%, 50ML SYRINGE IVPush PRN ×2 (20:00)
[2017-07-20] MEDS ORDERED: DEXTROSE 4 GM TAB.CHEW PO PRN ×2 (20:00)
[2017-07-20 20:10] VITALS: BP 153/65
[2017-07-20] MEDS: PROGESTERONE 100 MG CAPSULE PO SCH (20:22)
[2017-07-20] MEDS ORDERED: TEMAZEPAM 15 MG CAPSULE ONE (20:28)
[2017-07-20] MEDS: OMEPRAZOLE 20 MG CAPSULE.DR PO SCH (20:53)
[2017-07-20] MEDS: GUAIFENESIN/DM 200-20MG, 10ML UDC PO PRN (20:53)
[2017-07-20] MEDS: GABAPENTIN 300 MG CAPSULE PO SCH (20:54)
[2017-07-20] MEDS: FUROSEMIDE 20 MG TABLET PO SCH (20:54)
[2017-07-20] MEDS: ATORVASTATIN 20 MG TABLET PO SCH (20:55)
[2017-07-20] MEDS: SODIUM CHLORIDE FLUSH 10ML SYR IVF SCH ×2 (20:55)
[2017-07-20] MEDS: ROPINIROLE 1MG TABLET PO SCH (20:55)
[2017-07-20] MEDS: TEMAZEPAM 30 MG CAPSULE PO SCH (20:57)
[2017-07-20] MEDS ORDERED: TEMPLATE NON-FORMULARY MED. (Metformin Hcl** 1,000 MG) PO SCH (21:00)
[2017-07-21] MEDS ORDERED: POTASSIUM CHLORIDE 10 MEQ in SODIUM CHLORIDE 0.45% 1,000 ML IV SCH
[2017-07-21] MEDS: ENOXAPARIN 40 MG/0.4 ML SQ SCH (00:13)
[2017-07-21 01:24] VITALS: BP 102/56
[2017-07-21 01:55] LABS: IS PT STATUS REG ER OR PRE ER? NO
[2017-07-21] MEDS ORDERED: FLU VACC QS2017-18 (36MOS+) UP/PF 0.5 ML IM-VACC ONE (03:30)
[2017-07-21] MEDS ORDERED: ASPIRIN 81 MG TABLET EC ONE (04:34)
[2017-07-21] MEDS: ASPIRIN 81 MG TABLET EC PO SCH (04:46)
[2017-07-21 06:38] LABS: IS PT STATUS REG ER OR PRE ER? NO
[2017-07-21 07:26] VITALS: BP 130/67
[2017-07-21] MEDS ORDERED: REGADENOSON 0.4 MG/5 ML SYRINGE ONE (08:18)
[2017-07-21] MEDS ORDERED: GABAPENTIN 100 MG CAPSULE ONE (10:45)
[2017-07-21] MEDS: SODIUM CHLORIDE FLUSH 10ML SYR IVF SCH ×4 (11:08→21:04)
[2017-07-21] MEDS: LORATADINE 10 MG TABLET PO SCH (11:08)
[2017-07-21] MEDS: METOPROLOL SUCCINATE 100 MG TAB.ER.24H PO SCH (11:08)
[2017-07-21] MEDS: MULTIVITAMINS WITH IRON TABLET PO SCH (11:09)
[2017-07-21] MEDS: GABAPENTIN 300 MG CAPSULE PO SCH ×3 (11:09→21:00)
[2017-07-21] MEDS: CHOLECALCIFEROL 1,000 UNIT TABLET PO SCH (11:09)
[2017-07-21] MEDS: OMEPRAZOLE 20 MG CAPSULE.DR PO SCH ×2 (11:10→21:00)
[2017-07-21] MEDS: VENLAFAXINE 75 MG CAP ER PO SCH (11:10)
[2017-07-21] MEDS: FUROSEMIDE 20 MG TABLET PO SCH ×2 (11:10→21:01)
[2017-07-21] MEDS: SPIRONOLACTONE 25 MG TABLET PO SCH (11:11)
[2017-07-21] MEDS: ACETAMINOPHEN 325 MG TABLET PO PRN (11:18)
[2017-07-21] MEDS ORDERED: MAALOX/HYOSCYAMINE/LIDOCAINE 45 ML BTL PO ONE (11:30)
[2017-07-21 14:03] VITALS: BP 123/73
[2017-07-21] MEDS ORDERED: KETOROLAC 30 MG/1 ML IVPush PRN (14:30)
[2017-07-21 19:44] VITALS: BP 118/67
[2017-07-21] MEDS: ROPINIROLE 1MG TABLET PO SCH (20:59)
[2017-07-21] MEDS: TEMAZEPAM 30 MG CAPSULE PO SCH (21:00)
[2017-07-21] MEDS: ATORVASTATIN 20 MG TABLET PO SCH (21:01)
[2017-07-21] MEDS: PROGESTERONE 100 MG CAPSULE PO SCH (21:01)
[2017-07-21] MEDS: KETOROLAC 30 MG/1 ML IVPush SCH (21:03)
[2017-07-22 01:39] VITALS: BP 124/74
[2017-07-22] MEDS: KETOROLAC 30 MG/1 ML IVPush SCH (03:21)
[2017-07-22 05:38] LABS: HEMATOCRIT 37.2 % (34.6-47.8); HEMOGLOBIN 11.8 g/dL (11.7-16.4)
[2017-07-22] MEDS: ASPIRIN 81 MG TABLET EC PO SCH (05:41)
[2017-07-22] MEDS: ENOXAPARIN 40 MG/0.4 ML SQ SCH (05:43)
[2017-07-22 06:13] LABS: ASPARTATE AMINO TRANSFERASE 20 U/L (15-37); BLOOD UREA NITROGEN 22 mg/dL (7-18)
[2017-07-22] MEDS: SODIUM CHLORIDE FLUSH 10ML SYR IVF SCH ×4 (08:19→23:26)
[2017-07-22] MEDS: METOPROLOL SUCCINATE 100 MG TAB.ER.24H PO SCH (08:20)
[2017-07-22] MEDS: OMEPRAZOLE 20 MG CAPSULE.DR PO SCH ×2 (08:20→23:27)
[2017-07-22] MEDS: CHOLECALCIFEROL 1,000 UNIT TABLET PO SCH (08:20)
[2017-07-22] MEDS: MULTIVITAMINS WITH IRON TABLET PO SCH (08:20)
[2017-07-22] MEDS: LORATADINE 10 MG TABLET PO SCH (08:20)
[2017-07-22] MEDS: FUROSEMIDE 20 MG TABLET PO SCH ×2 (08:20→21:00)
[2017-07-22] MEDS: VENLAFAXINE 75 MG CAP ER PO SCH (08:21)
[2017-07-22] MEDS: GABAPENTIN 300 MG CAPSULE PO SCH ×3 (08:21→23:27)
[2017-07-22] MEDS: SPIRONOLACTONE 25 MG TABLET PO SCH (08:37)
[2017-07-22 08:47] VITALS: BP 124/75
[2017-07-22] MEDS ORDERED: LIDOCAINE 1%, 20ML ONE (10:20)
[2017-07-22] MEDS: ACETAMINOPHEN 325 MG TABLET PO PRN (11:39)
[2017-07-22] MEDS: CEFTRIAXONE PMX 2GM/50ML 50 ML IV SCH (11:39)
[2017-07-22 12:03] LABS: CYTOLOGY BODY FLUID RECD INTO PATHOLOGY; CYTOLOGY BODY FLUID SOURCE PLEURAL FLUID
[2017-07-22] MEDS: AZITHROMYCIN 500 MG in SODIUM CHLORIDE 0.9% 250 ML IV SCH (12:33)
[2017-07-22 14:55] VITALS: BP 115/71
[2017-07-22 19:48] VITALS: BP 134/72
[2017-07-22] MEDS: PROGESTERONE 100 MG CAPSULE PO SCH (21:00)
[2017-07-22] MEDS ORDERED: TEMAZEPAM 15 MG CAPSULE ONE (23:12)
[2017-07-22] MEDS: TEMAZEPAM 30 MG CAPSULE PO SCH (23:26)
[2017-07-22] MEDS: ROPINIROLE 1MG TABLET PO SCH (23:27)
[2017-07-22] MEDS: ATORVASTATIN 20 MG TABLET PO SCH (23:28)
[2017-07-23 03:30] VITALS: BP 119/70
[2017-07-23] MEDS: FUROSEMIDE 20 MG TABLET PO SCH ×2 (06:02→21:00)
[2017-07-23] MEDS: HEPARIN 5,000 UNITS/ML, 1ML SQ SCH ×2 (06:02→16:35)
[2017-07-23 07:01] VITALS: BP 137/73
[2017-07-23] MEDS: AZITHROMYCIN 500 MG in SODIUM CHLORIDE 0.9% 250 ML IV SCH (08:42)
[2017-07-23] MEDS: VENLAFAXINE 75 MG CAP ER PO SCH (08:44)
[2017-07-23] MEDS: MULTIVITAMINS WITH IRON TABLET PO SCH (08:44)
[2017-07-23] MEDS: OMEPRAZOLE 20 MG CAPSULE.DR PO SCH ×2 (08:44→21:01)
[2017-07-23] MEDS: LORATADINE 10 MG TABLET PO SCH (08:44)
[2017-07-23] MEDS: ASPIRIN 81 MG TABLET EC PO SCH (08:44)
[2017-07-23] MEDS: METOPROLOL SUCCINATE 100 MG TAB.ER.24H PO SCH (08:44)
[2017-07-23] MEDS: SPIRONOLACTONE 25 MG TABLET PO SCH (08:44)
[2017-07-23] MEDS: GABAPENTIN 300 MG CAPSULE PO SCH ×3 (08:44→21:01)
[2017-07-23] MEDS: SODIUM CHLORIDE FLUSH 10ML SYR IVF SCH ×3 (08:45→20:59)
[2017-07-23] MEDS: CHOLECALCIFEROL 1,000 UNIT TABLET PO SCH (08:45)
[2017-07-23] MEDS: CEFTRIAXONE PMX 2GM/50ML 50 ML IV SCH (12:23)
[2017-07-23 14:00] VITALS: BP 131/70
[2017-07-23 19:09] VITALS: BP 130/73
[2017-07-23] MEDS ORDERED: LOPERAMIDE 2 MG CAPSULE PO ONE (21:00)
[2017-07-23] MEDS: ATORVASTATIN 20 MG TABLET PO SCH (21:01)
[2017-07-23] MEDS: TEMAZEPAM 30 MG CAPSULE PO SCH (21:02)
[2017-07-23] MEDS: ROPINIROLE 1MG TABLET PO SCH (21:02)
[2017-07-23] MEDS: PROGESTERONE 100 MG CAPSULE PO SCH (21:02)
[2017-07-24 02:00] VITALS: BP 147/74
[2017-07-24 06:13] LABS: HEMOGLOBIN 11.8 g/dL (11.7-16.4); WHITE BLOOD COUNT 2.8 x10^3/uL (3.4-10)
[2017-07-24] MEDS: ASPIRIN 81 MG TABLET EC PO SCH (06:13)
[2017-07-24] MEDS: HEPARIN 5,000 UNITS/ML, 1ML SQ SCH ×2 (06:13→16:57)
[2017-07-24 06:24] LABS: BLOOD UREA NITROGEN 19 mg/dL (7-18)
[2017-07-24 06:51] VITALS: BP 151/76
[2017-07-24] MEDS ORDERED: LOPERAMIDE 2 MG CAPSULE PO PRN (09:00)
[2017-07-24] MEDS: SODIUM CHLORIDE FLUSH 10ML SYR IVF SCH ×2 (09:00→21:00)
[2017-07-24] MEDS: METOPROLOL SUCCINATE 100 MG TAB.ER.24H PO SCH (09:23)
[2017-07-24] MEDS: MULTIVITAMINS WITH IRON TABLET PO SCH (09:24)
[2017-07-24] MEDS: LORATADINE 10 MG TABLET PO SCH (09:24)
[2017-07-24] MEDS: GABAPENTIN 300 MG CAPSULE PO SCH ×3 (09:24→21:01)
[2017-07-24] MEDS: FUROSEMIDE 20 MG TABLET PO SCH ×2 (09:24→21:01)
[2017-07-24] MEDS: SPIRONOLACTONE 25 MG TABLET PO SCH (09:24)
[2017-07-24] MEDS: OMEPRAZOLE 20 MG CAPSULE.DR PO SCH ×2 (09:24→21:01)
[2017-07-24] MEDS: VENLAFAXINE 75 MG CAP ER PO SCH (09:24)
[2017-07-24] MEDS: AZITHROMYCIN 500 MG in SODIUM CHLORIDE 0.9% 250 ML IV SCH (09:25)
[2017-07-24] MEDS: CHOLECALCIFEROL 1,000 UNIT TABLET PO SCH (09:25)
[2017-07-24] MEDS: CEFTRIAXONE PMX 2GM/50ML 50 ML IV SCH (12:51)
[2017-07-24 14:51] VITALS: BP 132/71
[2017-07-24] MEDS: CHOLESTYRAMINE LIGHT 4GM PACKET PO PRN (16:58)
[2017-07-24 20:00] VITALS: BP 141/60
[2017-07-24] MEDS: ATORVASTATIN 20 MG TABLET PO SCH (21:01)
[2017-07-24] MEDS: CEFDINIR 300 MG CAPSULE PO SCH (21:01)
[2017-07-24] MEDS: TEMAZEPAM 30 MG CAPSULE PO SCH (21:02)
[2017-07-24] MEDS: PROGESTERONE 100 MG CAPSULE PO SCH (21:02)
[2017-07-24] MEDS: ROPINIROLE 1MG TABLET PO SCH (21:02)
[2017-07-25] MEDS: GUAIFENESIN/DM 200-20MG, 10ML UDC PO PRN (01:41)
[2017-07-25 02:47] VITALS: BP 138/72
[2017-07-25] MEDS: ASPIRIN 81 MG TABLET EC PO SCH (04:58)
[2017-07-25] MEDS: HEPARIN 5,000 UNITS/ML, 1ML SQ SCH ×2 (04:58→17:00)
[2017-07-25] MEDS: CHOLESTYRAMINE LIGHT 4GM PACKET PO PRN (04:58)
[2017-07-25 05:41] LABS: ASPARTATE AMINO TRANSFERASE 19 U/L (15-37); BLOOD UREA NITROGEN 19 mg/dL (7-18)
[2017-07-25 06:09] LABS: HEMATOCRIT 34.5 % (34.6-47.8); HEMOGLOBIN 11.4 g/dL (11.7-16.4)
[2017-07-25 07:48] VITALS: BP 130/57
[2017-07-25] MEDS ORDERED: AZITHROMYCIN 250 MG TABLET PO SCH (09:00)
[2017-07-25] MEDS: CEFDINIR 300 MG CAPSULE PO SCH (09:51)
[2017-07-25] MEDS: OMEPRAZOLE 20 MG CAPSULE.DR PO SCH (09:51)
[2017-07-25] MEDS: MULTIVITAMINS WITH IRON TABLET PO SCH (09:51)
[2017-07-25] MEDS: METOPROLOL SUCCINATE 100 MG TAB.ER.24H PO SCH (09:51)
[2017-07-25] MEDS: GABAPENTIN 300 MG CAPSULE PO SCH ×2 (09:51→16:00)
[2017-07-25] MEDS: ACETAMINOPHEN 325 MG TABLET PO PRN (09:51)
[2017-07-25] MEDS: CHOLECALCIFEROL 1,000 UNIT TABLET PO SCH (09:51)
[2017-07-25] MEDS: FUROSEMIDE 20 MG TABLET PO SCH (09:52)
[2017-07-25] MEDS: LORATADINE 10 MG TABLET PO SCH (09:52)
[2017-07-25] MEDS: SPIRONOLACTONE 25 MG TABLET PO SCH (09:52)
[2017-07-25] MEDS: SODIUM CHLORIDE FLUSH 10ML SYR IVF SCH (09:52)
[2017-07-25] MEDS: VENLAFAXINE 75 MG CAP ER PO SCH (09:52)
[2017-07-25] MEDS ORDERED: CHOL239. PO (13:35)
[2017-07-25] MEDS ORDERED: CEFD300C37 PO (13:35)
[2017-07-25 14:30] VITALS: BP 136/65
== END 2017-07-25 17:49 | disposition home or self-care (01) | DRG 190 ==
LOC: ED 17:40 → INTOOBSV 17:41 → EDIP 17:41 → OBSVTOIN 17:41 → ED 17:48 → 5SO 19:04 → 3NE 07-22 17:16
PROVIDERS: ADMIT Family Medicine; ATTEND Family Medicine
PROC: 0W9B3ZZ Drainage of Left Pleural Cavity, Percutaneous Approach (ICD-10-PCS; principal; 2017-07-22)
DX: J44.0 Chronic obstructive pulmonary disease with (acute) lower respiratory infection (principal); J18.9 Pneumonia, unspecified organism; D69.6 Thrombocytopenia, unspecified; I11.0 Hypertensive heart disease with heart failure; I25.110 Atherosclerotic heart disease of native coronary artery with unstable angina pectoris; E11.9 Type 2 diabetes mellitus without complications; I50.9 Heart failure, unspecified; J98.11 Atelectasis; D72.819 Decreased white blood cell count, unspecified; F32.9 Major depressive disorder, single episode, unspecified; G25.81 Restless legs syndrome; G47.00 Insomnia, unspecified; H53.2 Diplopia; K21.9 Gastro-esophageal reflux disease without esophagitis; K52.9 Noninfective gastroenteritis and colitis, unspecified; M19.90 Unspecified osteoarthritis, unspecified site; Z79.4 Long term (current) use of insulin; Z87.891 Personal history of nicotine dependence; Z95.1 Presence of aortocoronary bypass graft; Z95.5 Presence of coronary angioplasty implant and graft; Z23 Encounter for immunization; Z88.8 Allergy status to other drugs, medicaments and biological substances; Z88.5 Allergy status to narcotic agent; Z83.3 Family history of diabetes mellitus; Z82.5 Family history of asthma and other chronic lower respiratory diseases; Z82.49 Family history of ischemic heart disease and other diseases of the circulatory system; Z84.89 Family history of other specified conditions; Z90.710 Acquired absence of both cervix and uterus
CPT/HCPCS: 32555; 36415; 71010; 78452; 80048; 80053; 82150; 82525; 82607; 82746; 82962; 83690; 83880; 83986; 84157; 84484; 85025; 85379; 85610; 85730; 87070; 87205; 87324; 88112; 88305; 89051; 90686; 93005; 93017; 96374; J0456; J0696; J1644; J1650; J1885; J2405; J2785; J3480; J3490; Q0162; A9502; C9898; J7050

== ENCOUNTER 2017-08-18 12:24 | Emergency (ER) | payer MEDICARE ==
[~2017-08-18] VITALS: Ht 154.9 cm; Wt 83.0 kg
[~2017-08-18 12:24] MED LIST changes: +CHOL239. PO
[2017-08-18 12:31] VITALS: BP 160/76
[2017-08-18] MEDS ORDERED: HYDROcodone/APAP 5/325 TABLET PO PRN (14:30)
[2017-08-18] MEDS ORDERED: HYDROcodone/APAP 5/325 TABLET ONE (14:46)
== END 2017-08-18 15:19 | disposition home or self-care (01) ==
LOC: ED 14:10
DX: S93.491A Sprain of other ligament of right ankle, initial encounter (principal); E11.9 Type 2 diabetes mellitus without complications; I11.0 Hypertensive heart disease with heart failure; I50.9 Heart failure, unspecified; I25.110 Atherosclerotic heart disease of native coronary artery with unstable angina pectoris; J44.9 Chronic obstructive pulmonary disease, unspecified; K21.9 Gastro-esophageal reflux disease without esophagitis; M19.90 Unspecified osteoarthritis, unspecified site; Z87.891 Personal history of nicotine dependence; Z79.82 Long term (current) use of aspirin; Z95.1 Presence of aortocoronary bypass graft; W18.39XA Other fall on same level, initial encounter; Y93.89 Activity, other specified; Y92.89 Other specified places as the place of occurrence of the external cause; Y99.8 Other external cause status
CPT/HCPCS: 99284

== ENCOUNTER 2017-08-31 14:48 | Inpatient (IN) | payer MEDICARE ==
[~2017-08-31] VITALS: Ht 154.9 cm; Wt 83.7 kg
[2017-08-31] MEDS ORDERED: SODIUM CHLORIDE 0.9% 1,000 ML IV ONE ×2 (15:12→18:09)
[2017-08-31] MEDS ORDERED: SODIUM CHLORIDE FLUSH 10ML SYR IVF ONE (15:30)
[2017-08-31] MEDS: ONDANSETRON 2MG/ML, 2ML IVPush ONE ×2 (15:30→17:29)
[2017-08-31 15:54] LABS: RAPID INFLUENZA A Negative (Negative); RAPID INFLUENZA B Negative (Negative)
[2017-08-31 16:03] LABS: ALANINE AMINOTRANSFERASE 19 U/L (12-78); ALBUMIN 2.7 g/dL (3.4-5.0); ANION GAP 9 mmol/L (5-15); CALCIUM 8.5 mg/dL (8.5-10.1); CHLORIDE 103 mmol/L (98-107)
[2017-08-31 16:08] LABS: ALKALINE PHOSPHATASE 89 U/L (45-117); BILIRUBIN,TOTAL 1.6 mg/dL (0.2-1.0); CREATININE 0.93 mg/dL (0.55-1.02); TOTAL PROTEIN 7.5 g/dL (6.4-8.2); TROPONIN I < 0.015 ng/mL (0.000-0.045)
[2017-08-31 16:17] LABS: MD YES; MEAN CORPUSCULAR HGB CONC 32.7 g/dL (32.4-35.8); MEAN CORPUSCULAR VOLUME 79.4 fL (80-100); PLATELET COUNT 90 x10^3/uL (130-400); RED BLOOD COUNT 4.99 x10^6/uL (3.82-5.3); RED CELL DISTRIBUTION WIDTH 16.8 % (9.6-15.2)
[2017-08-31 16:23] LABS: <PLATELET ESTIMATE> DECREASED; <RBC MORPHOLOGY> NORMAL; BAND#(MANUAL) 0.49 x10^3/uL; BANDS%(MANUAL) 14 % (0-7); LYMPH#(MANUAL) 0.49 x10^3/uL (1-3.4); LYMPHS% (MANUAL) 14 % (22-44); MONOS#(MANUAL) 0.39 x10^3/uL (0.3-2.7); MONOS% (MANUAL) 11 % (2-9); SEG#(MANUAL) 2.14 x10^3/uL (1.8-6.8); SEGS% (MANUAL) 61 % (42-75)
[2017-08-31 16:24] LABS: LARGE PLATELETS 1+
[2017-08-31] MEDS ORDERED: LORA10TA72 PO (16:33)
[2017-08-31] MEDS ORDERED: VENL150C PO (16:33)
[2017-08-31] MEDS ORDERED: ACETAMINOPHEN 325 MG TABLET ONE (16:54)
[2017-08-31] MEDS ORDERED: ACETAMINOPHEN 325 MG TABLET PO ONE (17:00)
[2017-08-31] MEDS ORDERED: ONDANSETRON 2MG/ML, 2ML ONE (17:25)
[2017-08-31 18:23] LABS: MICROSCOPIC AUTO
[2017-08-31 18:26] LABS: CULTURE INDICATED? YES
[2017-08-31] MEDS ORDERED: SODIUM CHLORIDE FLUSH 10ML SYR IVF PRN (18:30)
[2017-08-31] MEDS ORDERED: GUAIFENESIN/DM 200-20MG, 10ML UDC PO PRN (19:30)
[2017-08-31] MEDS ORDERED: ONDANSETRON ODT 4 MG PO PRN (19:30)
[2017-08-31] MEDS ORDERED: ONDANSETRON 2MG/ML, 2ML IVPush PRN (19:30)
[2017-08-31] MEDS ORDERED: DEXTROSE 50%, 50ML SYRINGE IVPush PRN (19:30)
[2017-08-31] MEDS ORDERED: PROMETHAZINE 25 MG/ML, 1ML IM PRN (19:30)
[2017-08-31] MEDS ORDERED: GLUCAGON 1 MG IM PRN (19:30)
[2017-08-31] MEDS ORDERED: DEXTROSE 4 GM TAB.CHEW PO PRN (19:30)
[2017-08-31] MEDS ORDERED: ALBUTEROL SULFATE 2.5 MG/3 ML NPPB PRN (20:00)
[2017-08-31] MEDS: SODIUM CHLORIDE FLUSH 10ML SYR IVF SCH (21:00)
[2017-08-31] MEDS: INSULIN ASPART 100 UNITS/ML, PEN SQ-INSULIN SCH (21:00)
[2017-08-31] MEDS: CEFTRIAXONE PMX 1GM/50ML 50 ML IV SCH (22:29)
[2017-08-31] MEDS: ENOXAPARIN 40 MG/0.4 ML SQ SCH (22:30)
[2017-08-31] MEDS: OMEPRAZOLE 20 MG CAPSULE.DR PO SCH (22:30)
[2017-08-31] MEDS: TEMAZEPAM 30 MG CAPSULE PO SCH (22:31)
[2017-08-31] MEDS: FUROSEMIDE 20 MG TABLET PO SCH (22:31)
[2017-08-31] MEDS: ATORVASTATIN 40 MG TABLET PO SCH (22:31)
[2017-08-31] MEDS: GABAPENTIN 300 MG CAPSULE PO SCH (22:40)
[2017-08-31] MEDS: ROPINIROLE 1MG TABLET PO SCH (23:34)
[2017-09-01 00:10] VITALS: BP 113/54
[2017-09-01 02:48] VITALS: BP 142/52
[2017-09-01 05:39] LABS: MEAN CORPUSCULAR HEMOGLOBIN 26.6 pg (27.0-34.8); MEAN CORPUSCULAR HGB CONC 33.7 g/dL (32.4-35.8); MEAN CORPUSCULAR VOLUME 79.1 fL (80-100); RED BLOOD COUNT 4.14 x10^6/uL (3.82-5.3); RED CELL DISTRIBUTION WIDTH 17.2 % (9.6-15.2)
[2017-09-01 05:51] LABS: ALBUMIN 2.3 g/dL (3.4-5.0); ANION GAP 8 mmol/L (5-15); CALCIUM 7.8 mg/dL (8.5-10.1); CHLORIDE 105 mmol/L (98-107)
[2017-09-01] MEDS: ASPIRIN 81 MG TABLET EC PO SCH (05:53)
[2017-09-01] MEDS: OXYcodone IR 5MG TABLET PO PRN ×2 (05:53→12:24)
[2017-09-01 05:56] LABS: ALANINE AMINOTRANSFERASE 13 U/L (12-78); ALKALINE PHOSPHATASE 69 U/L (45-117); BILIRUBIN,TOTAL 1.2 mg/dL (0.2-1.0); CREATININE 0.78 mg/dL (0.55-1.02); TOTAL PROTEIN 6.1 g/dL (6.4-8.2)
[2017-09-01 06:08] LABS: MD YES; MEAN PLATELET VOLUME 9.9 fL (7.4-10.4); PLATELET COUNT 82 x10^3/uL (130-400)
[2017-09-01 06:11] LABS: ANISOCYTOSIS 1+; BASOS#(MANUAL) 0.03 x10^3/uL (0-0.1); BASOS% (MANUAL) 1 % (0-1); LYMPH#(MANUAL) 0.64 x10^3/uL (1-3.4); LYMPHS% (MANUAL) 22 % (22-44); MONOS#(MANUAL) 0.38 x10^3/uL (0.3-2.7); MONOS% (MANUAL) 13 % (2-9); POLYCHROMASIA 1+; SEG#(MANUAL) 1.86 x10^3/uL (1.8-6.8); SEGS% (MANUAL) 64 % (42-75)
[2017-09-01 06:21] LABS: <PLATELET ESTIMATE> DECREASED; LARGE PLATELETS 1+
[2017-09-01] MEDS: INSULIN ASPART 100 UNITS/ML, PEN SQ-INSULIN SCH ×4 (07:00→22:09)
[2017-09-01 08:00] VITALS: BP 128/56
[2017-09-01] MEDS: CEFTRIAXONE PMX 1GM/50ML 50 ML IV SCH ×2 (09:16→22:00)
[2017-09-01] MEDS: OMEPRAZOLE 20 MG CAPSULE.DR PO SCH ×2 (09:16→21:55)
[2017-09-01] MEDS: METOPROLOL SUCCINATE 100 MG TAB.ER.24H PO SCH (09:16)
[2017-09-01] MEDS: GABAPENTIN 300 MG CAPSULE PO SCH ×3 (09:17→21:56)
[2017-09-01] MEDS: VENLAFAXINE XR 37.5MG CAP.ER.24H PO SCH (09:17)
[2017-09-01] MEDS: FUROSEMIDE 20 MG TABLET PO SCH ×2 (09:17→21:55)
[2017-09-01] MEDS: SODIUM CHLORIDE FLUSH 10ML SYR IVF SCH ×2 (09:18→21:56)
[2017-09-01 17:33] VITALS: BP 108/65
[2017-09-01 18:30] VITALS: BP 146/81
[2017-09-01] MEDS: ENOXAPARIN 40 MG/0.4 ML SQ SCH (21:55)
[2017-09-01] MEDS: TEMAZEPAM 30 MG CAPSULE PO SCH (21:55)
[2017-09-01] MEDS: ATORVASTATIN 40 MG TABLET PO SCH (21:56)
[2017-09-01] MEDS: ROPINIROLE 1MG TABLET PO SCH (21:56)
[2017-09-02 01:14] VITALS: BP 124/79
[2017-09-02] MEDS: ASPIRIN 81 MG TABLET EC PO SCH (05:37)
[2017-09-02] MEDS: OXYcodone IR 5MG TABLET PO PRN (06:34)
[2017-09-02] MEDS: INSULIN ASPART 100 UNITS/ML, PEN SQ-INSULIN SCH ×4 (07:00→20:55)
[2017-09-02 07:30] VITALS: BP 123/61
[2017-09-02] MEDS: CEFTRIAXONE PMX 1GM/50ML 50 ML IV SCH ×2 (09:35→20:55)
[2017-09-02] MEDS: FUROSEMIDE 20 MG TABLET PO SCH ×2 (09:35→20:55)
[2017-09-02] MEDS: OMEPRAZOLE 20 MG CAPSULE.DR PO SCH ×2 (09:35→20:56)
[2017-09-02] MEDS: METOPROLOL SUCCINATE 100 MG TAB.ER.24H PO SCH (09:35)
[2017-09-02] MEDS: SODIUM CHLORIDE FLUSH 10ML SYR IVF SCH ×2 (09:35→20:55)
[2017-09-02] MEDS: GABAPENTIN 300 MG CAPSULE PO SCH ×3 (09:35→20:56)
[2017-09-02] MEDS: VENLAFAXINE XR 37.5MG CAP.ER.24H PO SCH (09:43)
[2017-09-02 13:30] LABS: CLOSTRIDIUM DIFFICILE ANTIGEN NEGATIVE; CLOSTRIDIUM DIFFICILE TOXIN NEGATIVE (Negative)
[2017-09-02 15:24] VITALS: BP 125/76
[2017-09-02 20:37] VITALS: BP 108/61
[2017-09-02] MEDS: TEMAZEPAM 30 MG CAPSULE PO SCH (20:55)
[2017-09-02] MEDS: ENOXAPARIN 40 MG/0.4 ML SQ SCH (20:55)
[2017-09-02] MEDS: ATORVASTATIN 40 MG TABLET PO SCH (20:55)
[2017-09-02] MEDS: ROPINIROLE 1MG TABLET PO SCH (20:56)
[2017-09-03] MEDS: LOPERAMIDE 1 MG/5 ML, 10ML UDC PO PRN ×3 (03:10→21:14)
[2017-09-03 03:54] VITALS: BP 119/56
[2017-09-03] MEDS: ASPIRIN 81 MG TABLET EC PO SCH (06:18)
[2017-09-03] MEDS: INSULIN ASPART 100 UNITS/ML, PEN SQ-INSULIN SCH ×4 (06:20→20:18)
[2017-09-03 07:46] VITALS: BP 134/76
[2017-09-03] MEDS: CEFTRIAXONE PMX 1GM/50ML 50 ML IV SCH (08:26)
[2017-09-03] MEDS: SODIUM CHLORIDE FLUSH 10ML SYR IVF SCH ×2 (08:26→20:11)
[2017-09-03] MEDS: VENLAFAXINE XR 37.5MG CAP.ER.24H PO SCH (08:26)
[2017-09-03] MEDS: FUROSEMIDE 20 MG TABLET PO SCH ×2 (08:26→20:10)
[2017-09-03] MEDS: OMEPRAZOLE 20 MG CAPSULE.DR PO SCH ×2 (08:27→20:10)
[2017-09-03] MEDS: GABAPENTIN 300 MG CAPSULE PO SCH ×3 (08:27→20:10)
[2017-09-03] MEDS: METOPROLOL SUCCINATE 100 MG TAB.ER.24H PO SCH (08:27)
[2017-09-03] MEDS: OXYcodone IR 5MG TABLET PO PRN ×2 (10:27→20:11)
[2017-09-03] MEDS: CIPROFLOXACIN 500 MG TABLET PO SCH (12:56)
[2017-09-03] MEDS: metroNIDAZOLE 500 MG TABLET PO SCH ×2 (12:56→20:10)
[2017-09-03 14:10] VITALS: BP 116/58
[2017-09-03 19:33] VITALS: BP 123/51
[2017-09-03] MEDS: ATORVASTATIN 40 MG TABLET PO SCH (20:10)
[2017-09-03] MEDS: ROPINIROLE 1MG TABLET PO SCH (20:10)
[2017-09-03] MEDS: TEMAZEPAM 30 MG CAPSULE PO SCH (20:11)
[2017-09-03] MEDS: ENOXAPARIN 40 MG/0.4 ML SQ SCH (20:11)
[2017-09-03] MEDS: CEFTRIAXONE 1,000 MG in DEXTROSE 5% 50 ML IV SCH (20:11)
[2017-09-04] MEDS: CIPROFLOXACIN 500 MG TABLET PO SCH ×2 (00:22→11:52)
[2017-09-04 01:02] VITALS: BP 117/69
[2017-09-04] MEDS: metroNIDAZOLE 500 MG TABLET PO SCH ×2 (06:09→11:51)
[2017-09-04] MEDS: ASPIRIN 81 MG TABLET EC PO SCH (06:09)
[2017-09-04] MEDS: LOPERAMIDE 1 MG/5 ML, 10ML UDC PO PRN ×2 (06:10→11:53)
[2017-09-04] MEDS: INSULIN ASPART 100 UNITS/ML, PEN SQ-INSULIN SCH ×2 (06:12→11:00)
[2017-09-04] MEDS: CEFTRIAXONE 1,000 MG in DEXTROSE 5% 50 ML IV SCH (07:55)
[2017-09-04 08:09] VITALS: BP 127/73
[2017-09-04] MEDS: VENLAFAXINE XR 37.5MG CAP.ER.24H PO SCH (08:56)
[2017-09-04] MEDS: FUROSEMIDE 20 MG TABLET PO SCH (08:56)
[2017-09-04] MEDS: OMEPRAZOLE 20 MG CAPSULE.DR PO SCH (08:57)
[2017-09-04] MEDS: METOPROLOL SUCCINATE 100 MG TAB.ER.24H PO SCH (08:57)
[2017-09-04] MEDS: GABAPENTIN 300 MG CAPSULE PO SCH (08:57)
[2017-09-04] MEDS: SODIUM CHLORIDE FLUSH 10ML SYR IVF SCH (09:00)
[2017-09-04 14:09] VITALS: BP 110/56
[2017-09-04] MEDS ORDERED: CIPR500T87 PO (15:04)
[2017-09-04] MEDS ORDERED: METR500T PO (15:04)
== END 2017-09-04 17:20 | disposition home health service (06) | DRG 392 ==
LOC: ED 17:55 → EDIP 18:09 → 4EST 19:54 → 4NOR 09-02 12:03
PROVIDERS: ADMIT Family Medicine; ATTEND Family Medicine
DX: A08.4 Viral intestinal infection, unspecified (principal); E11.9 Type 2 diabetes mellitus without complications; N39.0 Urinary tract infection, site not specified; I11.0 Hypertensive heart disease with heart failure; I50.32 Chronic diastolic (congestive) heart failure; E86.0 Dehydration; F32.9 Major depressive disorder, single episode, unspecified; B96.20 Unspecified Escherichia coli [E. coli] as the cause of diseases classified elsewhere; J44.9 Chronic obstructive pulmonary disease, unspecified; I25.10 Atherosclerotic heart disease of native coronary artery without angina pectoris; K21.9 Gastro-esophageal reflux disease without esophagitis; Z87.891 Personal history of nicotine dependence; G25.81 Restless legs syndrome; K70.30 Alcoholic cirrhosis of liver without ascites; K76.0 Fatty (change of) liver, not elsewhere classified; R26.81 Unsteadiness on feet; G47.00 Insomnia, unspecified; K80.20 Calculus of gallbladder without cholecystitis without obstruction; M19.90 Unspecified osteoarthritis, unspecified site; Z95.5 Presence of coronary angioplasty implant and graft; Z95.1 Presence of aortocoronary bypass graft; Z90.710 Acquired absence of both cervix and uterus; Z88.5 Allergy status to narcotic agent; Z88.8 Allergy status to other drugs, medicaments and biological substances; Z82.49 Family history of ischemic heart disease and other diseases of the circulatory system; Z83.3 Family history of diabetes mellitus; Z82.5 Family history of asthma and other chronic lower respiratory diseases; Z80.7 Family history of other malignant neoplasms of lymphoid, hematopoietic and related tissues; Z79.82 Long term (current) use of aspirin; Z79.52 Long term (current) use of systemic steroids; Z79.84 Long term (current) use of oral hypoglycemic drugs
CPT/HCPCS: 36415; 71045; 76705; 80053; 81001; 82962; 83605; 83690; 83880; 84484; 85025; 87040; 87077; 87086; 87186; 87324; 87400; 93005; 96361; 96374; J0696; J1650; J1815; J2405; J7030

== ENCOUNTER 2017-09-06 11:52 | Emergency (ER) | payer MEDICARE ==
[~2017-09-06] VITALS: Ht 154.9 cm; Wt 80.0 kg
[~2017-09-06 11:52] MED LIST changes: +CIPR500T87 PO; +LORA10TA72 PO; +METR500T PO; +VENL150C PO
[2017-09-06 12:28] LABS: MEAN CORPUSCULAR HEMOGLOBIN 25.8 pg (27.0-34.8); MEAN CORPUSCULAR HGB CONC 32.3 g/dL (32.4-35.8); MEAN CORPUSCULAR VOLUME 79.9 fL (80-100); MEAN PLATELET VOLUME 9.8 fL (7.4-10.4); PLATELET COUNT 105 x10^3/uL (130-400); RED BLOOD COUNT 4.49 x10^6/uL (3.82-5.3); RED CELL DISTRIBUTION WIDTH 17.9 % (9.6-15.2)
[2017-09-06] MEDS ORDERED: SODIUM CHLORIDE FLUSH 10ML SYR IVF ONE (12:30)
[2017-09-06] MEDS ORDERED: SODIUM CHLORIDE 0.9% 1,000ML IVBOLUS ONE (12:30)
[2017-09-06 12:39] LABS: ALANINE AMINOTRANSFERASE 12 U/L (12-78); ALBUMIN 2.4 g/dL (3.4-5.0); ANION GAP 6 mmol/L (5-15); CALCIUM 8.2 mg/dL (8.5-10.1); CHLORIDE 108 mmol/L (98-107)
[2017-09-06 12:41] LABS: ALKALINE PHOSPHATASE 86 U/L (45-117); BILIRUBIN,TOTAL 0.7 mg/dL (0.2-1.0); TOTAL PROTEIN 6.6 g/dL (6.4-8.2)
[2017-09-06 12:43] LABS: BASOPHILS # (AUTO) 0.01 x10^3/uL (0-0.1); BASOPHILS % (AUTO) 0 % (0-1); EOSINOPHILS # (AUTO) 0.03 x10^3/uL (0-0.4); EOSINOPHILS % (AUTO) 1 % (1-7); LYMPHOCYTES # (AUTO) 0.57 x10^3/uL (1-3.4); LYMPHOCYTES % (AUTO) 20 % (22-44); MD SCAN; MONOCYTES # (AUTO) 0.31 x10^3/uL (0.2-0.8); MONOCYTES % (AUTO) 11 % (2-9); NEUTROPHILS # (AUTO) 1.95 x10^3/uL (1.8-6.8); NEUTROPHILS % (AUTO) 68 % (42-75)
[2017-09-06] MEDS ORDERED: OXYcodone IR 5MG TABLET ONE (14:09)
[2017-09-06] MEDS ORDERED: IBUPROFEN 200 MG TABLET ONE (14:09)
[2017-09-06 14:15] VITALS: BP 178/75
[2017-09-06] MEDS ORDERED: OXYcodone IR 5MG TABLET PO ONE (14:30)
[2017-09-06] MEDS ORDERED: IBUPROFEN 200 MG TABLET PO ONE (14:30)
[2017-09-06] MEDS ORDERED: OMNIPAQUE 350 MG/ML, 100ML BOTTLE ONE (15:58)
== END 2017-09-06 15:52 | disposition home or self-care (01) ==
LOC: ED 13:09
DX: K52.9 Noninfective gastroenteritis and colitis, unspecified (principal); E86.0 Dehydration; D72.819 Decreased white blood cell count, unspecified; E11.65 Type 2 diabetes mellitus with hyperglycemia; J44.9 Chronic obstructive pulmonary disease, unspecified; K21.9 Gastro-esophageal reflux disease without esophagitis; I25.110 Atherosclerotic heart disease of native coronary artery with unstable angina pectoris; I11.0 Hypertensive heart disease with heart failure; I50.9 Heart failure, unspecified; Z87.891 Personal history of nicotine dependence; Z95.5 Presence of coronary angioplasty implant and graft; Z95.1 Presence of aortocoronary bypass graft
CPT/HCPCS: 36415; 74177; 80053; 83605; 83690; 85025; 93005; 96360; 96361; 99285; J7030; Q9967

== ENCOUNTER 2017-10-21 00:16 | Observation (INO) | payer MEDICARE ==
[~2017-10-21] VITALS: Ht 154.9 cm; Wt 79.6 kg
[~2017-10-21 00:16] MED LIST changes: +METO200T47 PO; -METO200T5 PO
[2017-10-21] MEDS ORDERED: ONDANSETRON 2MG/ML, 2ML ONE (01:59)
[2017-10-21] MEDS ORDERED: FAMOTIDINE 20 MG/2 ML ONE (01:59)
[2017-10-21] MEDS ORDERED: SODIUM CHLORIDE FLUSH 10ML SYR IVF ONE (02:00)
[2017-10-21] MEDS ORDERED: ONDANSETRON 2MG/ML, 2ML IVPush ONE (02:00)
[2017-10-21] MEDS ORDERED: FAMOTIDINE 20 MG/2 ML IVP ONE (02:00)
[2017-10-21] MEDS ORDERED: SODIUM CHLORIDE 0.9% 1,000ML IVBOLUS ONE (02:00)
[2017-10-21 02:03] LABS: BASOPHILS # (AUTO) 0.02 x10^3/uL (0-0.1); BASOPHILS % (AUTO) 0 % (0-1); EOSINOPHILS # (AUTO) 0.04 x10^3/uL (0-0.4); EOSINOPHILS % (AUTO) 1 % (1-7); LYMPHOCYTES # (AUTO) 0.56 x10^3/uL (1-3.4); LYMPHOCYTES % (AUTO) 11 % (22-44); MD NO; MEAN CORPUSCULAR HEMOGLOBIN 25.8 pg (27.0-34.8); MEAN CORPUSCULAR HGB CONC 32.6 g/dL (32.4-35.8); MEAN CORPUSCULAR VOLUME 79.1 fL (80-100); MEAN PLATELET VOLUME 10.4 fL (7.4-10.4); MONOCYTES # (AUTO) 0.43 x10^3/uL (0.2-0.8); MONOCYTES % (AUTO) 8 % (2-9); NEUTROPHILS # (AUTO) 4.07 x10^3/uL (1.8-6.8); NEUTROPHILS % (AUTO) 80 % (42-75); PLATELET COUNT 110 x10^3/uL (130-400); RED CELL DISTRIBUTION WIDTH 17.1 % (9.6-15.2)
[2017-10-21 03:06] LABS: ANION GAP 8 mmol/L (5-15); CALCIUM 8.3 mg/dL (8.5-10.1); CHLORIDE 106 mmol/L (98-107)
[2017-10-21 03:07] LABS: ALANINE AMINOTRANSFERASE 15 U/L (12-78); ALBUMIN 2.9 g/dL (3.4-5.0); ALKALINE PHOSPHATASE 83 U/L (45-117); CREATININE 0.74 mg/dL (0.55-1.02); TOTAL PROTEIN 7.5 g/dL (6.4-8.2)
[2017-10-21 03:25] LABS: MICROSCOPIC AUTO
[2017-10-21 03:26] LABS: CULTURE INDICATED? NO
[2017-10-21] MEDS ORDERED: OMNIPAQUE 350 MG/ML, 100ML BOTTLE ONE (04:34)
[2017-10-21] MEDS ORDERED: SODIUM CHLORIDE 0.9% 1,000 ML IV ONE (06:45)
[2017-10-21] MEDS ORDERED: ONDANSETRON 2MG/ML, 2ML IVPush PRN (07:00)
[2017-10-21] MEDS ORDERED: SODIUM CHLORIDE 0.9% 1,000 ML IV SCH (07:23)
[2017-10-21] MEDS ORDERED: CHOLESTYRAMINE LIGHT 4GM PACKET PO PRN (07:30)
[2017-10-21] MEDS ORDERED: GLUCAGON 1 MG IM PRN (07:30)
[2017-10-21] MEDS ORDERED: PROMETHAZINE 25 MG/ML, 1ML IM PRN (07:30)
[2017-10-21] MEDS ORDERED: DEXTROSE 50%, 50ML SYRINGE IVPush PRN (07:30)
[2017-10-21] MEDS ORDERED: OXYcodone IR 5MG TABLET PO PRN (07:30)
[2017-10-21] MEDS ORDERED: TEMPLATE NON-FORMULARY MED. (Albuterol Sulfate (Ventolin Hfa) 0 PUFF(S)) INH SCH (07:30)
[2017-10-21] MEDS ORDERED: DEXTROSE 4 GM TAB.CHEW PO PRN (07:30)
[2017-10-21] MEDS ORDERED: LABETALOL 5MG/ML, 20ML IVPush PRN (07:30)
[2017-10-21] MEDS ORDERED: ONDANSETRON ODT 4 MG PO PRN (07:30)
[2017-10-21] MEDS ORDERED: ACETAMINOPHEN 325 MG TABLET PO PRN (07:30)
[2017-10-21 08:08] VITALS: BP 160/75
[2017-10-21] MEDS: ENOXAPARIN 30 MG/0.3 ML SQ SCH ×2 (08:35→22:16)
[2017-10-21] MEDS: ONDANSETRON 2MG/ML, 2ML IVPush PRN (08:35)
[2017-10-21] MEDS: LORATADINE 10 MG TABLET PO SCH ×3 (08:35→08:43)
[2017-10-21] MEDS: MULTIVITAMIN 1 TABLET PO SCH (08:35)
[2017-10-21] MEDS: GABAPENTIN 300 MG CAPSULE PO SCH ×3 (08:35→22:17)
[2017-10-21] MEDS: FUROSEMIDE 20 MG TABLET PO SCH ×2 (08:36→22:16)
[2017-10-21] MEDS: VENLAFAXINE 75 MG CAP ER PO SCH (08:36)
[2017-10-21] MEDS: SODIUM CHLORIDE 0.9% 1,000 ML IV SCH (08:37)
[2017-10-21] MEDS: AREDS2 PO SCH (08:37)
[2017-10-21] MEDS: SODIUM CHLORIDE FLUSH 10ML SYR IVF SCH ×2 (08:37→22:16)
[2017-10-21] MEDS: OMEPRAZOLE 20 MG CAPSULE.DR PO SCH ×2 (08:42→22:17)
[2017-10-21] MEDS: INSULIN LISPRO 100 UNITS/ML, PEN SQ-INSULIN SCH ×3 (11:50→22:18)
[2017-10-21 12:34] VITALS: BP 169/68
[2017-10-21] MEDS ORDERED: CYSTO CONRAY II 250 ML VIAL UR ONE (19:20)
[2017-10-21 20:20] VITALS: BP 147/76
[2017-10-21] MEDS ORDERED: ROPINIROLE 1MG TABLET PO SCH (21:00)
[2017-10-21] MEDS ORDERED: ATORVASTATIN 20 MG TABLET PO SCH (21:00)
[2017-10-21] MEDS ORDERED: TEMAZEPAM 30 MG CAPSULE PO SCH (21:00)
[2017-10-21 23:12] LABS: CLOSTRIDIUM DIFFICILE TOXIN NEGATIVE (Negative)
[2017-10-21 23:17] LABS: CLOSTRIDIUM DIFFICILE ANTIGEN POSITIVE
[2017-10-22] MEDS: SODIUM CHLORIDE 0.9% 1,000 ML IV SCH (02:56)
[2017-10-22 02:59] VITALS: BP 141/80
[2017-10-22 05:33] LABS: ANION GAP 6 mmol/L (5-15); CALCIUM 7.9 mg/dL (8.5-10.1); CHLORIDE 108 mmol/L (98-107); CREATININE 0.82 mg/dL (0.55-1.02)
[2017-10-22 05:44] LABS: MEAN CORPUSCULAR HEMOGLOBIN 26.3 pg (27.0-34.8); MEAN CORPUSCULAR VOLUME 79.8 fL (80-100); RED BLOOD COUNT 4.24 x10^6/uL (3.82-5.3); RED CELL DISTRIBUTION WIDTH 17.6 % (9.6-15.2)
[2017-10-22] MEDS ORDERED: ASPIRIN 81 MG TABLET EC PO SCH (06:00)
[2017-10-22] MEDS ORDERED: METOPROLOL SUCCINATE 100 MG TAB.ER.24H PO SCH (06:00)
[2017-10-22 06:11] VITALS: BP 148/75
[2017-10-22] MEDS ORDERED: NS + 40MEQ KCL 1,000 ML IV SCH (06:30)
[2017-10-22 06:33] LABS: MD SCAN
[2017-10-22 06:34] LABS: BASOPHILS # (AUTO) 0.01 x10^3/uL (0-0.1); BASOPHILS % (AUTO) 1 % (0-1); EOSINOPHILS # (AUTO) 0.05 x10^3/uL (0-0.4); EOSINOPHILS % (AUTO) 2 % (1-7); LYMPHOCYTES # (AUTO) 0.43 x10^3/uL (1-3.4); LYMPHOCYTES % (AUTO) 15 % (22-44); MEAN PLATELET VOLUME 10.7 fL (7.4-10.4); MONOCYTES # (AUTO) 0.28 x10^3/uL (0.2-0.8); MONOCYTES % (AUTO) 10 % (2-9); NEUTROPHILS # (AUTO) 2.05 x10^3/uL (1.8-6.8); NEUTROPHILS % (AUTO) 73 % (42-75); PLATELET COUNT 95 x10^3/uL (130-400)
[2017-10-22] MEDS: INSULIN LISPRO 100 UNITS/ML, PEN SQ-INSULIN SCH ×2 (07:00→11:00)
[2017-10-22] MEDS: FUROSEMIDE 20 MG TABLET PO SCH (08:41)
[2017-10-22] MEDS: VENLAFAXINE 75 MG CAP ER PO SCH (08:42)
[2017-10-22] MEDS: MULTIVITAMIN 1 TABLET PO SCH (08:42)
[2017-10-22] MEDS: GABAPENTIN 300 MG CAPSULE PO SCH (08:42)
[2017-10-22] MEDS: LORATADINE 10 MG TABLET PO SCH ×2 (08:42→08:43)
[2017-10-22] MEDS: AREDS2 PO SCH (08:42)
[2017-10-22] MEDS: SODIUM CHLORIDE FLUSH 10ML SYR IVF SCH (08:42)
[2017-10-22] MEDS: ONDANSETRON 2MG/ML, 2ML IVPush PRN (08:42)
[2017-10-23] MEDS ORDERED: NS + 40MEQ KCL 1,000 ML IV SCH (06:30)
== END 2017-10-22 16:23 | disposition home or self-care (01) ==
LOC: ED 01:43 → EDIP 06:45 → INTOOBSV 06:45 → 3NE 07:50
PROVIDERS: ADMIT Hospitalist; ATTEND Hospitalist
DX: A08.4 Viral intestinal infection, unspecified (principal); D69.6 Thrombocytopenia, unspecified; D72.819 Decreased white blood cell count, unspecified; I11.0 Hypertensive heart disease with heart failure; I50.9 Heart failure, unspecified; J44.9 Chronic obstructive pulmonary disease, unspecified; K21.9 Gastro-esophageal reflux disease without esophagitis; K70.30 Alcoholic cirrhosis of liver without ascites; K29.00 Acute gastritis without bleeding; F32.9 Major depressive disorder, single episode, unspecified; G47.00 Insomnia, unspecified; K80.20 Calculus of gallbladder without cholecystitis without obstruction; E11.9 Type 2 diabetes mellitus without complications; R31.29 Other microscopic hematuria; Z86.14 Personal history of Methicillin resistant Staphylococcus aureus infection; Z87.891 Personal history of nicotine dependence; Z90.710 Acquired absence of both cervix and uterus; Z95.1 Presence of aortocoronary bypass graft; Z95.5 Presence of coronary angioplasty implant and graft; Z87.440 Personal history of urinary (tract) infections
CPT/HCPCS: 36415; 74177; 74455; 80048; 80053; 81001; 82962; 83690; 83880; 85025; 87324; 87493; 96361; 96372; 96374; 96375; 97162; 97166; 99285; G0378; J1650; J2405; J3480; J7030; Q9958; Q9967; S0028

== ENCOUNTER 2017-11-06 15:25 | Emergency (ER) | payer MEDICARE ==
[~2017-11-06] VITALS: Ht 154.9 cm; Wt 79.1 kg
[2017-11-06 16:46] LABS: BASOPHILS # (AUTO) 0.02 x10^3/uL (0-0.1); BASOPHILS % (AUTO) 1 % (0-1); EOSINOPHILS # (AUTO) 0.08 x10^3/uL (0-0.4); EOSINOPHILS % (AUTO) 3 % (1-7); LYMPHOCYTES # (AUTO) 0.67 x10^3/uL (1-3.4); LYMPHOCYTES % (AUTO) 21 % (22-44); MD NO; MEAN CORPUSCULAR HEMOGLOBIN 26.6 pg (27.0-34.8); MEAN CORPUSCULAR HGB CONC 33.2 g/dL (32.4-35.8); MEAN CORPUSCULAR VOLUME 80.1 fL (80-100); MEAN PLATELET VOLUME 9.6 fL (7.4-10.4); MONOCYTES # (AUTO) 0.41 x10^3/uL (0.2-0.8); MONOCYTES % (AUTO) 13 % (2-9); NEUTROPHILS # (AUTO) 2.06 x10^3/uL (1.8-6.8); NEUTROPHILS % (AUTO) 64 % (42-75); PLATELET COUNT 101 x10^3/uL (130-400); RED BLOOD COUNT 4.58 x10^6/uL (3.82-5.3); RED CELL DISTRIBUTION WIDTH 17.8 % (9.6-15.2)
[2017-11-06 16:59] LABS: ALANINE AMINOTRANSFERASE 19 U/L (12-78); ALBUMIN 2.5 g/dL (3.4-5.0); ANION GAP 5 mmol/L (5-15); CALCIUM 8.2 mg/dL (8.5-10.1); CHLORIDE 112 mmol/L (98-107); CREATININE 0.75 mg/dL (0.55-1.02)
[2017-11-06 17:03] LABS: ALKALINE PHOSPHATASE 95 U/L (45-117); BILIRUBIN,TOTAL 0.4 mg/dL (0.2-1.0); TOTAL PROTEIN 6.5 g/dL (6.4-8.2); TROPONIN I < 0.015 ng/mL (0.000-0.045)
[2017-11-06 17:09] LABS: THYROID STIMULATING HORMONE 0.368 mIU/L (0.358-3.740)
[2017-11-06 17:27] LABS: HEMOGLOBIN A1C 6.5 % (4.2-6.3)
[2017-11-06 17:40] VITALS: BP 133/75
== END 2017-11-06 18:04 | disposition home or self-care (01) ==
LOC: ED 16:00
DX: M54.6 Pain in thoracic spine (principal); R19.7 Diarrhea, unspecified; R11.10 Vomiting, unspecified; J44.9 Chronic obstructive pulmonary disease, unspecified; K21.9 Gastro-esophageal reflux disease without esophagitis; E11.9 Type 2 diabetes mellitus without complications; I11.0 Hypertensive heart disease with heart failure; I50.9 Heart failure, unspecified; I25.810 Atherosclerosis of coronary artery bypass graft(s) without angina pectoris; Z95.1 Presence of aortocoronary bypass graft; Z90.710 Acquired absence of both cervix and uterus; Z88.5 Allergy status to narcotic agent; Z79.82 Long term (current) use of aspirin
CPT/HCPCS: 36415; 71045; 80053; 83036; 83880; 84443; 84484; 85025; 87040; 93005; 99285

== ENCOUNTER → 2018-01-06 | Outpatient (CLI) | payer MEDICARE ==
[~2018-01-06] MED LIST changes: +RANI150T23 PO; -RANI150T8 PO
== END | disposition home or self-care (01) ==
LOC: CFH 07:18
PROVIDERS: ATTEND Internal Medicine Gastroenterology
DX: K74.69 Other cirrhosis of liver (principal); K82.1 Hydrops of gallbladder; R19.7 Diarrhea, unspecified; I85.00 Esophageal varices without bleeding
CPT/HCPCS: 76700

== ENCOUNTER 2018-01-23 17:01 | Inpatient (IN) | payer MEDICARE ==
[~2018-01-23] VITALS: Ht 154.9 cm; Wt 79.6 kg
[2018-01-23] MEDS ORDERED: DIPHENHYDRAMINE 50 MG/ML, 1ML IVPush ONE ×2 (17:30→19:00)
[2018-01-23] MEDS ORDERED: DIPHENHYDRAMINE 50 MG/ML, 1ML ONE ×2 (17:37→19:07)
[2018-01-23] MEDS ORDERED: METOCLOPRAMIDE 5 MG/ML, 2ML ONE (17:37)
[2018-01-23] MEDS ORDERED: KETOROLAC 30 MG/1 ML ONE (17:38)
[2018-01-23 17:57] LABS: BASOPHILS # (AUTO) 0.02 x10^3/uL (0-0.1); BASOPHILS % (AUTO) 1 % (0-1); EOSINOPHILS # (AUTO) 0.06 x10^3/uL (0-0.4); EOSINOPHILS % (AUTO) 2 % (1-7); LYMPHOCYTES % (AUTO) 16 % (22-44); MD NO; MEAN CORPUSCULAR HEMOGLOBIN 25.6 pg (27.0-34.8); MEAN CORPUSCULAR HGB CONC 32.4 g/dL (32.4-35.8); MEAN CORPUSCULAR VOLUME 79.1 fL (80-100); MEAN PLATELET VOLUME 9.5 fL (7.4-10.4); MONOCYTES % (AUTO) 13 % (2-9); NEUTROPHILS # (AUTO) 2.12 x10^3/uL (1.8-6.8); NEUTROPHILS % (AUTO) 68 % (42-75); PLATELET COUNT 119 x10^3/uL (130-400); RED BLOOD COUNT 4.88 x10^6/uL (3.82-5.3); RED CELL DISTRIBUTION WIDTH 16.8 % (9.6-15.2)
[2018-01-23] MEDS ORDERED: KETOROLAC 30 MG/1 ML IVPush ONE (18:00)
[2018-01-23] MEDS ORDERED: METOCLOPRAMIDE 5 MG/ML, 2ML IVPush ONE (18:00)
[2018-01-23 18:03] LABS: ALANINE AMINOTRANSFERASE 16 U/L (12-78); ALBUMIN 2.8 g/dL (3.4-5.0); ANION GAP 5 mmol/L (5-15); CALCIUM 8.5 mg/dL (8.5-10.1); CHLORIDE 111 mmol/L (98-107); CREATININE 0.73 mg/dL (0.55-1.02)
[2018-01-23 18:05] LABS: ALKALINE PHOSPHATASE 87 U/L (45-117); BILIRUBIN,TOTAL 1.1 mg/dL (0.2-1.0); TOTAL PROTEIN 7.2 g/dL (6.4-8.2)
[2018-01-23] MEDS ORDERED: SODIUM CHLORIDE FLUSH 10ML SYR IVF ONE (18:30)
[2018-01-23 19:24] LABS: MICROSCOPIC INDICATED
[2018-01-23] MEDS ORDERED: LORazepam 2 MG/ML, 1ML IVPush ONE (19:30)
[2018-01-23] MEDS ORDERED: LORazepam 2 MG/ML, 1ML ONE (19:31)
[2018-01-23 19:32] LABS: CULTURE INDICATED? NO
[2018-01-23] MEDS ORDERED: ENALAPRILAT 1.25 MG/ML, 2ML IVPush PRN (20:30)
[2018-01-23] MEDS ORDERED: ACETAMINOPHEN 325 MG TABLET PO PRN (20:30)
[2018-01-23] MEDS ORDERED: OXYcodone IR 5MG TABLET PO PRN (20:30)
[2018-01-23] MEDS ORDERED: PROMETHAZINE 25 MG/ML, 1ML IM PRN (20:30)
[2018-01-23] MEDS ORDERED: ALBUTEROL SULFATE 2.5 MG/3 ML NPPB SCH (20:30)
[2018-01-23] MEDS ORDERED: LORazepam 2 MG/ML, 1ML IVPush PRN (20:30)
[2018-01-23] MEDS ORDERED: LABETALOL 5MG/ML, 20ML IVPush PRN (20:30)
[2018-01-23] MEDS ORDERED: LABETALOL 5MG/ML, 20ML IVPush STA (20:33)
[2018-01-23] MEDS ORDERED: LABETALOL 5MG/ML, 20ML ONE (20:34)
[2018-01-23] MEDS ORDERED: DEXAMETHASONE 20 MG in SODIUM CHLORIDE 0.9% 50 ML IV ONE (21:00)
[2018-01-23] MEDS ORDERED: SUMATRIPTAN 100 MG TABLET PO PRN (21:00)
[2018-01-23] MEDS ORDERED: TEMAZEPAM 30 MG CAPSULE PO SCH (21:00)
[2018-01-23] MEDS ORDERED: PROMETHAZINE 25MG TABLET PO PRN (21:00)
[2018-01-23 21:04] VITALS: BP 193/80
[2018-01-23] MEDS ORDERED: ALBUTEROL SULFATE 2.5 MG/3 ML NPPB PRN (21:30)
[2018-01-23] MEDS: GABAPENTIN 300 MG CAPSULE PO SCH (22:32)
[2018-01-23] MEDS: metFORMIN 500 MG TABLET PO SCH (22:33)
[2018-01-23] MEDS: ROPINIROLE 1MG TABLET PO SCH (22:34)
[2018-01-23] MEDS: ATORVASTATIN 20 MG TABLET PO SCH (22:34)
[2018-01-23] MEDS: FUROSEMIDE 20 MG TABLET PO SCH (22:35)
[2018-01-23] MEDS: METOPROLOL SUCCINATE 100 MG TAB.ER.24H PO SCH (22:40)
[2018-01-23] MEDS: SODIUM CHLORIDE 0.9% 1,000 ML IV SCH (22:50)
[2018-01-23 23:10] VITALS: BP 164/74
[2018-01-24 00:34] VITALS: BP 173/68
[2018-01-24 04:38] LABS: MEAN CORPUSCULAR HEMOGLOBIN 25.7 pg (27.0-34.8); MEAN CORPUSCULAR HGB CONC 32.5 g/dL (32.4-35.8); MEAN CORPUSCULAR VOLUME 79.3 fL (80-100); MEAN PLATELET VOLUME 9.8 fL (7.4-10.4); PLATELET COUNT 101 x10^3/uL (130-400); RED BLOOD COUNT 4.68 x10^6/uL (3.82-5.3); RED CELL DISTRIBUTION WIDTH 16.9 % (9.6-15.2)
[2018-01-24 04:50] LABS: ALBUMIN 2.7 g/dL (3.4-5.0); ANION GAP 6 mmol/L (5-15); CALCIUM 8.3 mg/dL (8.5-10.1); CHLORIDE 112 mmol/L (98-107)
[2018-01-24 04:53] LABS: ALANINE AMINOTRANSFERASE 16 U/L (12-78); ALKALINE PHOSPHATASE 86 U/L (45-117); BILIRUBIN,TOTAL 0.6 mg/dL (0.2-1.0); CREATININE 0.83 mg/dL (0.55-1.02); TOTAL PROTEIN 7.1 g/dL (6.4-8.2)
[2018-01-24 05:16] LABS: BASOPHILS % (AUTO) 0 % (0-1); EOSINOPHILS # (AUTO) 0.02 x10^3/uL (0-0.4); EOSINOPHILS % (AUTO) 1 % (1-7); LYMPHOCYTES # (AUTO) 0.35 x10^3/uL (1-3.4); LYMPHOCYTES % (AUTO) 14 % (22-44); MD SCAN; MONOCYTES % (AUTO) 4 % (2-9); NEUTROPHILS % (AUTO) 81 % (42-75)
[2018-01-24 06:14] VITALS: BP 137/77
[2018-01-24] MEDS: ASPIRIN 81 MG TABLET EC PO SCH (06:14)
[2018-01-24 06:15] VITALS: BP 148/69
[2018-01-24] MEDS: SODIUM CHLORIDE 0.9% 1,000 ML IV SCH (08:00)
[2018-01-24] MEDS ORDERED: AREDS2 PO SCH (09:00)
[2018-01-24] MEDS ORDERED: METOPROLOL SUCCINATE 100 MG TAB.ER.24H PO SCH (09:00)
[2018-01-24] MEDS ORDERED: VENLAFAXINE 75 MG CAP ER PO SCH (09:00)
[2018-01-24] MEDS: GABAPENTIN 300 MG CAPSULE PO SCH ×3 (10:12→21:34)
[2018-01-24] MEDS: metFORMIN 500 MG TABLET PO SCH ×2 (10:12→21:34)
[2018-01-24] MEDS: NAPROXEN 250 MG TABLET PO SCH ×2 (10:12→21:35)
[2018-01-24] MEDS: LORATADINE 10 MG TABLET PO SCH (10:12)
[2018-01-24] MEDS: FUROSEMIDE 20 MG TABLET PO SCH ×2 (10:12→21:35)
[2018-01-24] MEDS: MULTIVITAMINS/MINERALS TABLET PO SCH (10:12)
[2018-01-24] MEDS: METOPROLOL SUCCINATE 100 MG TAB.ER.24H PO SCH (10:13)
[2018-01-24 13:16] VITALS: BP 141/71
[2018-01-24 19:00] VITALS: BP 152/64
[2018-01-24] MEDS: ONDANSETRON ODT 4 MG PO PRN (20:13)
[2018-01-24] MEDS ORDERED: SODIUM CHLORIDE 0.9% 1,000 ML IV SCH (20:26)
[2018-01-24] MEDS: ATORVASTATIN 20 MG TABLET PO SCH (21:35)
[2018-01-24] MEDS: ROPINIROLE 1MG TABLET PO SCH (21:37)
[2018-01-24] MEDS: TEMAZEPAM 30 MG CAPSULE PO PRN (22:25)
[2018-01-25] MEDS: ONDANSETRON ODT 4 MG PO PRN ×3 (00:27→09:09)
[2018-01-25 01:08] VITALS: BP 132/70
[2018-01-25] MEDS: ASPIRIN 81 MG TABLET EC PO SCH (05:43)
[2018-01-25 06:14] LABS: OCCULT BLOOD POSITIVE (NEGATIVE)
[2018-01-25 06:30] VITALS: BP 115/65
[2018-01-25 08:16] LABS: CLOSTRIDIUM DIFFICILE ANTIGEN NEGATIVE; CLOSTRIDIUM DIFFICILE TOXIN NEGATIVE (Negative)
[2018-01-25 08:16] LABS: MEAN CORPUSCULAR HEMOGLOBIN 26.1 pg (27.0-34.8); MEAN CORPUSCULAR HGB CONC 33.1 g/dL (32.4-35.8); MEAN CORPUSCULAR VOLUME 79.1 fL (80-100); MEAN PLATELET VOLUME 10.1 fL (7.4-10.4); PLATELET COUNT 178 x10^3/uL (130-400); RED BLOOD COUNT 4.21 x10^6/uL (3.82-5.3); RED CELL DISTRIBUTION WIDTH 17.1 % (9.6-15.2)
[2018-01-25 08:17] LABS: BASOPHILS # (AUTO) 0.02 x10^3/uL (0-0.1); BASOPHILS % (AUTO) 0 % (0-1); EOSINOPHILS # (AUTO) 0.01 x10^3/uL (0-0.4); EOSINOPHILS % (AUTO) 0 % (1-7); LYMPHOCYTES # (AUTO) 1.11 x10^3/uL (1-3.4); LYMPHOCYTES % (AUTO) 9 % (22-44); MD SCAN; MONOCYTES % (AUTO) 10 % (2-9); NEUTROPHILS # (AUTO) 9.93 x10^3/uL (1.8-6.8); NEUTROPHILS % (AUTO) 81 % (42-75)
[2018-01-25] MEDS: metFORMIN 500 MG TABLET PO SCH ×2 (08:51→20:17)
[2018-01-25] MEDS: OXYcodone IR 5MG TABLET PO PRN ×2 (08:52→17:20)
[2018-01-25] MEDS: LORATADINE 10 MG TABLET PO SCH (08:52)
[2018-01-25] MEDS: NAPROXEN 250 MG TABLET PO SCH (08:53)
[2018-01-25] MEDS: MULTIVITAMINS/MINERALS TABLET PO SCH (08:53)
[2018-01-25] MEDS: FUROSEMIDE 20 MG TABLET PO SCH ×2 (08:53→20:17)
[2018-01-25] MEDS: GABAPENTIN 300 MG CAPSULE PO SCH ×3 (08:54→20:17)
[2018-01-25] MEDS: METOPROLOL SUCCINATE 100 MG TAB.ER.24H PO SCH (08:54)
[2018-01-25] MEDS ORDERED: PANTOPRAZOLE 40 MG IV IVPush SCH (10:00)
[2018-01-25] MEDS: CEFTRIAXONE PMX 2GM/50ML 50 ML IV SCH (11:54)
[2018-01-25] MEDS: PANTOPRAZOLE 80 MG in SODIUM CHLORIDE 0.9% 100 ML IV SCH ×2 (11:57→23:17)
[2018-01-25 12:30] VITALS: BP 128/62
[2018-01-25] MEDS: OCTREOTIDE 500 MCG in SODIUM CHLORIDE 0.9% 249 ML IV SCH ×2 (12:40→23:18)
[2018-01-25] MEDS ORDERED: HYDROmorphone 1 MG/ML, 1ML IM PRN (15:30)
[2018-01-25] MEDS: LACTATED RINGERS 1,000 ML IV SCH ×2 (17:21→20:17)
[2018-01-25 19:18] VITALS: BP 113/64
[2018-01-25] MEDS: ATORVASTATIN 20 MG TABLET PO SCH (20:16)
[2018-01-25] MEDS: TEMAZEPAM 30 MG CAPSULE PO PRN (20:17)
[2018-01-25] MEDS: ROPINIROLE 1MG TABLET PO SCH (20:17)
[2018-01-25 22:23] LABS: MICROSCOPIC INDICATED
[2018-01-26 00:58] VITALS: BP 100/55
[2018-01-26 05:07] LABS: BASOPHILS # (AUTO) 0.05 x10^3/uL (0-0.1); BASOPHILS % (AUTO) 1 % (0-1); EOSINOPHILS # (AUTO) 0.18 x10^3/uL (0-0.4); EOSINOPHILS % (AUTO) 3 % (1-7); LYMPHOCYTES # (AUTO) 1.53 x10^3/uL (1-3.4); LYMPHOCYTES % (AUTO) 25 % (22-44); MD NO; MEAN CORPUSCULAR HEMOGLOBIN 26.1 pg (27.0-34.8); MEAN CORPUSCULAR HGB CONC 32.6 g/dL (32.4-35.8); MONOCYTES # (AUTO) 0.71 x10^3/uL (0.2-0.8); MONOCYTES % (AUTO) 12 % (2-9); NEUTROPHILS # (AUTO) 3.69 x10^3/uL (1.8-6.8); NEUTROPHILS % (AUTO) 60 % (42-75); PLATELET COUNT 139 x10^3/uL (130-400); RED BLOOD COUNT 3.58 x10^6/uL (3.82-5.3); RED CELL DISTRIBUTION WIDTH 17.1 % (9.6-15.2)
[2018-01-26 05:11] LABS: INTERNATIONAL NORMALIZED RATIO 1.3 (0.93-1.1); PROTHROMBIN TIME 13.4 Seconds (9.6-11.5)
[2018-01-26 05:13] LABS: ALBUMIN 2.2 g/dL (3.4-5.0); ANION GAP 5 mmol/L (5-15); CALCIUM 7.5 mg/dL (8.5-10.1); CHLORIDE 108 mmol/L (98-107)
[2018-01-26 05:18] LABS: ALANINE AMINOTRANSFERASE 12 U/L (12-78); ALKALINE PHOSPHATASE 57 U/L (45-117); BILIRUBIN,TOTAL 0.6 mg/dL (0.2-1.0); CREATININE 0.91 mg/dL (0.55-1.02); TOTAL PROTEIN 5.5 g/dL (6.4-8.2)
[2018-01-26 07:42] VITALS: BP 112/68
[2018-01-26] MEDS ORDERED: PROPOFOL 10 MG/ML, 20ML ONE (08:35)
[2018-01-26] MEDS ORDERED: PROMETHAZINE 25 MG/ML, 1ML IV PRN (09:30)
[2018-01-26] MEDS ORDERED: hydrALAzine 20 MG/ML, 1ML IV PRN (09:30)
[2018-01-26] MEDS ORDERED: ONDANSETRON ODT 8 MG PO PRN (09:30)
[2018-01-26] MEDS ORDERED: FENTANYL PF 100 MCG/2ML IV PRN (09:30)
[2018-01-26] MEDS ORDERED: OXYcodone 5 MG/5 ML ORAL.SOL UDC PO PRN (09:30)
[2018-01-26] MEDS ORDERED: MORPHINE SULFATE 4 MG/ML, 1ML IVPush PRN (09:30)
[2018-01-26] MEDS ORDERED: LORazepam 2 MG/ML, 1ML IVPush PRN (09:30)
[2018-01-26] MEDS ORDERED: ALBUTEROL SULFATE 2.5 MG/3 ML NPPB PRN (09:30)
[2018-01-26] MEDS ORDERED: PROMETHAZINE 12.5 MG SUPP PR PRN (09:30)
[2018-01-26] MEDS ORDERED: MIDAZOLAM 1 MG/ML, 2ML IV PRN (09:30)
[2018-01-26] MEDS ORDERED: LABETALOL 5MG/ML, 20ML IV PRN (09:30)
[2018-01-26] MEDS ORDERED: MEPERIDINE/PF 25MG/0.5ML IVPush PRN (09:30)
[2018-01-26] MEDS ORDERED: ONDANSETRON ODT 8 MG ONE (09:36)
[2018-01-26] MEDS: metFORMIN 500 MG TABLET PO SCH ×2 (10:29→21:47)
[2018-01-26] MEDS: LORATADINE 10 MG TABLET PO SCH (10:29)
[2018-01-26] MEDS: FUROSEMIDE 20 MG TABLET PO SCH ×2 (10:29→21:47)
[2018-01-26] MEDS: GABAPENTIN 300 MG CAPSULE PO SCH ×3 (10:30→21:47)
[2018-01-26] MEDS: MULTIVITAMINS/MINERALS TABLET PO SCH (10:30)
[2018-01-26] MEDS: METOPROLOL SUCCINATE 100 MG TAB.ER.24H PO SCH (10:30)
[2018-01-26] MEDS: SUCRALFATE 1 GM/10 ML UDC PO SCH ×6 (10:37→21:46)
[2018-01-26] MEDS: CEFTRIAXONE PMX 2GM/50ML 50 ML IV SCH (11:19)
[2018-01-26] MEDS: OCTREOTIDE 500 MCG in SODIUM CHLORIDE 0.9% 249 ML IV SCH ×2 (12:04→22:02)
[2018-01-26] MEDS: PANTOPRAZOLE 80 MG in SODIUM CHLORIDE 0.9% 100 ML IV SCH ×2 (12:04→22:02)
[2018-01-26 13:13] VITALS: BP 106/58
[2018-01-26] MEDS: OXYcodone IR 5MG TABLET PO PRN (14:39)
[2018-01-26] MEDS: ONDANSETRON ODT 4 MG PO PRN (15:26)
[2018-01-26 19:15] VITALS: BP 125/62
[2018-01-26] MEDS: LACTATED RINGERS 1,000 ML IV SCH (19:50)
[2018-01-26] MEDS: ROPINIROLE 1MG TABLET PO SCH (21:47)
[2018-01-26] MEDS: ATORVASTATIN 20 MG TABLET PO SCH (21:47)
[2018-01-26] MEDS: TEMAZEPAM 30 MG CAPSULE PO PRN (21:59)
[2018-01-27 00:49] VITALS: BP 107/58
[2018-01-27 05:16] LABS: CHLORIDE 107 mmol/L (98-107)
[2018-01-27 05:21] LABS: BASOPHILS # (AUTO) 0.05 x10^3/uL (0-0.1); BASOPHILS % (AUTO) 1 % (0-1); EOSINOPHILS # (AUTO) 0.19 x10^3/uL (0-0.4); EOSINOPHILS % (AUTO) 3 % (1-7); LYMPHOCYTES # (AUTO) 1.72 x10^3/uL (1-3.4); LYMPHOCYTES % (AUTO) 25 % (22-44); MD NO; MEAN CORPUSCULAR HEMOGLOBIN 26.2 pg (27.0-34.8); MEAN CORPUSCULAR HGB CONC 32.8 g/dL (32.4-35.8); MEAN CORPUSCULAR VOLUME 79.8 fL (80-100); MEAN PLATELET VOLUME 10.2 fL (7.4-10.4); MONOCYTES # (AUTO) 0.77 x10^3/uL (0.2-0.8); MONOCYTES % (AUTO) 11 % (2-9); NEUTROPHILS # (AUTO) 4.04 x10^3/uL (1.8-6.8); NEUTROPHILS % (AUTO) 60 % (42-75); PLATELET COUNT 171 x10^3/uL (130-400); RED BLOOD COUNT 4.09 x10^6/uL (3.82-5.3); RED CELL DISTRIBUTION WIDTH 17.6 % (9.6-15.2)
[2018-01-27 05:22] LABS: ANION GAP 8 mmol/L (5-15); CALCIUM 8.5 mg/dL (8.5-10.1); CREATININE 0.95 mg/dL (0.55-1.02)
[2018-01-27] MEDS: SUCRALFATE 1 GM/10 ML UDC PO SCH ×8 (06:33→21:17)
[2018-01-27 06:48] VITALS: BP 122/49
[2018-01-27] MEDS: PANTOPRAZOLE 80 MG in SODIUM CHLORIDE 0.9% 100 ML IV SCH (08:12)
[2018-01-27] MEDS: OCTREOTIDE 500 MCG in SODIUM CHLORIDE 0.9% 249 ML IV SCH (08:12)
[2018-01-27] MEDS: LACTATED RINGERS 1,000 ML IV SCH (08:13)
[2018-01-27 09:15] VITALS: BP 120/67
[2018-01-27] MEDS: MULTIVITAMINS/MINERALS TABLET PO SCH (09:18)
[2018-01-27] MEDS: METOPROLOL SUCCINATE 100 MG TAB.ER.24H PO SCH (09:19)
[2018-01-27] MEDS: FUROSEMIDE 20 MG TABLET PO SCH ×2 (09:19→21:17)
[2018-01-27] MEDS: GABAPENTIN 300 MG CAPSULE PO SCH ×3 (09:20→21:16)
[2018-01-27] MEDS: LORATADINE 10 MG TABLET PO SCH (09:20)
[2018-01-27] MEDS: metFORMIN 500 MG TABLET PO SCH ×2 (09:20→21:16)
[2018-01-27] MEDS: VENLAFAXINE 75 MG CAP ER PO SCH (11:31)
[2018-01-27] MEDS: CEFTRIAXONE PMX 2GM/50ML 50 ML IV SCH (11:31)
[2018-01-27 12:49] VITALS: BP 143/60
[2018-01-27 18:37] VITALS: BP 160/68
[2018-01-27] MEDS: ATORVASTATIN 20 MG TABLET PO SCH (21:16)
[2018-01-27] MEDS: ROPINIROLE 1MG TABLET PO SCH (21:16)
[2018-01-27] MEDS: TEMAZEPAM 30 MG CAPSULE PO PRN (21:27)
[2018-01-28 00:34] VITALS: BP 149/71
[2018-01-28 04:58] LABS: BASOPHILS # (AUTO) 0.01 x10^3/uL (0-0.1); BASOPHILS % (AUTO) 0 % (0-1); EOSINOPHILS # (AUTO) 0.15 x10^3/uL (0-0.4); EOSINOPHILS % (AUTO) 3 % (1-7); LYMPHOCYTES # (AUTO) 1.06 x10^3/uL (1-3.4); LYMPHOCYTES % (AUTO) 19 % (22-44); MD NO; MEAN CORPUSCULAR HGB CONC 32.5 g/dL (32.4-35.8); MEAN PLATELET VOLUME 10.1 fL (7.4-10.4); MONOCYTES % (AUTO) 13 % (2-9); NEUTROPHILS # (AUTO) 3.73 x10^3/uL (1.8-6.8); NEUTROPHILS % (AUTO) 66 % (42-75); PLATELET COUNT 123 x10^3/uL (130-400); RED BLOOD COUNT 3.62 x10^6/uL (3.82-5.3); RED CELL DISTRIBUTION WIDTH 16.8 % (9.6-15.2)
[2018-01-28 05:04] LABS: ALBUMIN 2.4 g/dL (3.4-5.0); ANION GAP 6 mmol/L (5-15); CALCIUM 7.9 mg/dL (8.5-10.1); CHLORIDE 103 mmol/L (98-107)
[2018-01-28 05:09] LABS: ALANINE AMINOTRANSFERASE 15 U/L (12-78); ALKALINE PHOSPHATASE 63 U/L (45-117); CREATININE 0.92 mg/dL (0.55-1.02)
[2018-01-28] MEDS ORDERED: POTASSIUM CHLORIDE 20 MEQ TAB.ER.PRT PO ONE (05:30)
[2018-01-28] MEDS ORDERED: CARVEDILOL 6.25 MG TABLET PO SCH (06:00)
[2018-01-28] MEDS: ONDANSETRON ODT 4 MG PO PRN (06:06)
[2018-01-28] MEDS: SUCRALFATE 1 GM/10 ML UDC PO SCH ×3 (07:00→11:07)
[2018-01-28] MEDS ORDERED: PANTOPROZOLE 40MG TABLET PO SCH (07:30)
[2018-01-28] MEDS: VENLAFAXINE 75 MG CAP ER PO SCH (08:00)
[2018-01-28] MEDS: OXYcodone IR 5MG TABLET PO PRN (08:00)
[2018-01-28] MEDS: FUROSEMIDE 20 MG TABLET PO SCH (08:01)
[2018-01-28] MEDS: metFORMIN 500 MG TABLET PO SCH (08:01)
[2018-01-28] MEDS: LORATADINE 10 MG TABLET PO SCH (08:01)
[2018-01-28] MEDS: MULTIVITAMINS/MINERALS TABLET PO SCH (08:01)
[2018-01-28 08:03] VITALS: BP 167/61
[2018-01-28] MEDS: GABAPENTIN 300 MG CAPSULE PO SCH (08:08)
[2018-01-28 08:43] LABS: TROPONIN I < 0.015 ng/mL (0.000-0.045)
[2018-01-28] MEDS ORDERED: LACTATED RINGERS 1,000 ML IV SCH (10:00)
[2018-01-28] MEDS: CEFTRIAXONE PMX 2GM/50ML 50 ML IV SCH (11:07)
[2018-01-28] MEDS ORDERED: FERROUS SULFATE 325 MG TABLET PO SCH (12:00)
[2018-01-28 12:42] VITALS: BP 123/63
[2018-01-28] MEDS ORDERED: PANT40TA5 PO (13:15)
[2018-01-28] MEDS ORDERED: SUCR1ORA5 PO (13:15)
[2018-01-28] MEDS ORDERED: CARV6.2512 PO (13:15)
== END 2018-01-28 15:09 | disposition home or self-care (01) | DRG 102 ==
LOC: ED 17:40 → EDIP 19:44 → 3NE 20:43
PROVIDERS: ADMIT Family Medicine; ATTEND Family Medicine
PROC: 06L38CZ Occlusion of Esophageal Vein with Extraluminal Device, Via Natural or Artificial Opening Endoscopic (ICD-10-PCS; principal; 2018-01-26 08:15)
DX: G44.211 Episodic tension-type headache, intractable (principal); I85.11 Secondary esophageal varices with bleeding; E44.0 Moderate protein-calorie malnutrition; E11.22 Type 2 diabetes mellitus with diabetic chronic kidney disease; G25.71 Drug induced akathisia; D62 Acute posthemorrhagic anemia; E11.649 Type 2 diabetes mellitus with hypoglycemia without coma; I50.32 Chronic diastolic (congestive) heart failure; K76.6 Portal hypertension; K92.1 Melena; I13.0 Hypertensive heart and chronic kidney disease with heart failure and stage 1 through stage 4 chronic kidney disease, or unspecified chronic kidney disease; I16.0 Hypertensive urgency; T45.0X5A Adverse effect of antiallergic and antiemetic drugs, initial encounter; R32 Unspecified urinary incontinence; N18.9 Chronic kidney disease, unspecified; M19.90 Unspecified osteoarthritis, unspecified site; K75.81 Nonalcoholic steatohepatitis (NASH); K75.4 Autoimmune hepatitis; I25.10 Atherosclerotic heart disease of native coronary artery without angina pectoris; J44.9 Chronic obstructive pulmonary disease, unspecified; K70.31 Alcoholic cirrhosis of liver with ascites; K21.9 Gastro-esophageal reflux disease without esophagitis; R35.1 Nocturia; F32.9 Major depressive disorder, single episode, unspecified; D72.819 Decreased white blood cell count, unspecified; E78.5 Hyperlipidemia, unspecified; E87.6 Hypokalemia; F17.210 Nicotine dependence, cigarettes, uncomplicated; G25.81 Restless legs syndrome; G43.901 Migraine, unspecified, not intractable, with status migrainosus; G47.00 Insomnia, unspecified; Z95.5 Presence of coronary angioplasty implant and graft; Z95.1 Presence of aortocoronary bypass graft; Z91.81 History of falling; Z91.14 Patient's other noncompliance with medication regimen; Z90.710 Acquired absence of both cervix and uterus; Z83.3 Family history of diabetes mellitus; Z82.49 Family history of ischemic heart disease and other diseases of the circulatory system; Z79.4 Long term (current) use of insulin; Z80.7 Family history of other malignant neoplasms of lymphoid, hematopoietic and related tissues; Z91.19 Patient's noncompliance with other medical treatment and regimen; Z88.8 Allergy status to other drugs, medicaments and biological substances; Z88.6 Allergy status to analgesic agent
CPT/HCPCS: 36415; 70450; 80048; 80053; 81001; 82140; 82272; 83735; 84484; 85014; 85018; 85025; 85610; 86850; 86900; 87324; 93005; 96374; 96375; 96376; J0696; J1100; J1885; J2354; J2704; Q0162; C9113; J1200; J2060; J2765; J7030; J7050; J7120

== ENCOUNTER 2018-02-10 13:06 | Emergency (ER) | payer MEDICARE ==
[~2018-02-10 13:06] MED LIST changes: +CARV6.2512 PO; +PANT40TA5 PO; +SUCR1ORA5 PO
[2018-02-10] MEDS ORDERED: SODIUM CHLORIDE 0.9% 1,000 ML IV ONE (13:48)
[2018-02-10] MEDS ORDERED: SODIUM CHLORIDE FLUSH 10ML SYR IVF ONE (14:00)
[2018-02-10 14:48] LABS: MICROSCOPIC AUTO
[2018-02-10 14:50] LABS: CULTURE INDICATED? NO
[2018-02-10 15:07] LABS: ALANINE AMINOTRANSFERASE 16 U/L (12-78); ALBUMIN 2.7 g/dL (3.4-5.0); ANION GAP 6 mmol/L (5-15); CALCIUM 8.2 mg/dL (8.5-10.1); CHLORIDE 114 mmol/L (98-107); CREATININE 0.66 mg/dL (0.55-1.02)
[2018-02-10 15:11] LABS: ALKALINE PHOSPHATASE 75 U/L (45-117); TOTAL PROTEIN 6.3 g/dL (6.4-8.2); TROPONIN I < 0.015 ng/mL (0.000-0.045)
[2018-02-10 15:30] LABS: MEAN CORPUSCULAR HEMOGLOBIN 25.1 pg (27.0-34.8); MEAN CORPUSCULAR HGB CONC 32.4 g/dL (32.4-35.8); MEAN CORPUSCULAR VOLUME 77.5 fL (80-100); MEAN PLATELET VOLUME 10.1 fL (7.4-10.4); PLATELET COUNT 98 x10^3/uL (130-400); RED BLOOD COUNT 3.44 x10^6/uL (3.82-5.3); RED CELL DISTRIBUTION WIDTH 16.2 % (9.6-15.2)
[2018-02-10 15:58] VITALS: BP 141/54
[2018-02-10 16:22] LABS: MD YES
[2018-02-10 16:26] LABS: BASOS#(MANUAL) 0.02 x10^3/uL (0-0.1); BASOS% (MANUAL) 1 % (0-1); EOS#(MANUAL) 0.04 x10^3/uL (0.0-0.4); EOS% (MANUAL) 2 % (1-7); LYMPH#(MANUAL) 0.44 x10^3/uL (1-3.4); LYMPHS% (MANUAL) 22 % (22-44); MONOS#(MANUAL) 0.16 x10^3/uL (0.3-2.7); MONOS% (MANUAL) 8 % (2-9); SEG#(MANUAL) 1.34 x10^3/uL (1.8-6.8); SEGS% (MANUAL) 67 % (42-75)
[2018-02-10 16:27] LABS: ANISOCYTOSIS 2+; HYPOCHROMIA 1+; MICROCYTOSIS 1+
[2018-02-10 16:28] LABS: <PLATELET ESTIMATE> DECREASED; <PLT MORPHOLOGY> NORMAL PLT MORPH; OVALOCYTES 1+
== END 2018-02-10 16:34 | disposition home or self-care (01) ==
LOC: ED 16:28
DX: T67.3XXA Heat exhaustion, anhydrotic, initial encounter (principal); D61.818 Other pancytopenia; J44.9 Chronic obstructive pulmonary disease, unspecified; I11.0 Hypertensive heart disease with heart failure; I50.9 Heart failure, unspecified; I25.10 Atherosclerotic heart disease of native coronary artery without angina pectoris; E11.9 Type 2 diabetes mellitus without complications; K21.9 Gastro-esophageal reflux disease without esophagitis; M19.90 Unspecified osteoarthritis, unspecified site; X58.XXXA Exposure to other specified factors, initial encounter; Y93.89 Activity, other specified; Y92.89 Other specified places as the place of occurrence of the external cause; Y99.8 Other external cause status
CPT/HCPCS: 36415; 70450; 80053; 80307; 81001; 82140; 84484; 85025; 93005; 99285; J7030

== ENCOUNTER 2018-02-13 12:50 | Emergency (ER) | payer MEDICARE ==
[~2018-02-13] VITALS: Ht 154.9 cm; Wt 79.2 kg
[2018-02-13 13:25] LABS: MEAN CORPUSCULAR HEMOGLOBIN 24.9 pg (27.0-34.8); MEAN CORPUSCULAR HGB CONC 32.6 g/dL (32.4-35.8); MEAN CORPUSCULAR VOLUME 76.4 fL (80-100); MEAN PLATELET VOLUME 10.8 fL (7.4-10.4); PLATELET COUNT 136 x10^3/uL (130-400); RED BLOOD COUNT 3.61 x10^6/uL (3.82-5.3); RED CELL DISTRIBUTION WIDTH 16.8 % (9.6-15.2)
[2018-02-13 13:36] LABS: ALANINE AMINOTRANSFERASE 16 U/L (12-78); ALBUMIN 2.9 g/dL (3.4-5.0); ANION GAP 8 mmol/L (5-15); CALCIUM 8.2 mg/dL (8.5-10.1); CHLORIDE 111 mmol/L (98-107); CREATININE 0.86 mg/dL (0.55-1.02)
[2018-02-13 13:40] LABS: ALKALINE PHOSPHATASE 77 U/L (45-117); BILIRUBIN,TOTAL 0.4 mg/dL (0.2-1.0); TROPONIN I < 0.015 ng/mL (0.000-0.045)
[2018-02-13 13:43] LABS: MD YES
[2018-02-13 13:46] LABS: BAND#(MANUAL) 0.05 x10^3/uL; BANDS%(MANUAL) 2 % (0-7); BASOS#(MANUAL) 0.03 x10^3/uL (0-0.1); BASOS% (MANUAL) 1 % (0-1); EOS#(MANUAL) 0.15 x10^3/uL (0.0-0.4); EOS% (MANUAL) 6 % (1-7); LYMPHS% (MANUAL) 20 % (22-44); MONOS% (MANUAL) 8 % (2-9); SEG#(MANUAL) 1.58 x10^3/uL (1.8-6.8); SEGS% (MANUAL) 63 % (42-75)
[2018-02-13 13:49] LABS: ANISOCYTOSIS 1+; HYPOCHROMIA 1+; MICROCYTOSIS 1+
[2018-02-13 13:50] LABS: OVALOCYTES 1+
[2018-02-13 13:51] LABS: <PLATELET ESTIMATE> ADEQUATE; LARGE PLATELETS 1+
[2018-02-13 14:18] VITALS: BP 144/45
[2018-02-13 14:36] LABS: MICROSCOPIC AUTO
[2018-02-13 14:41] LABS: CULTURE INDICATED? YES
== END 2018-02-13 15:25 | disposition home or self-care (01) ==
LOC: ED 14:57
DX: I50.9 Heart failure, unspecified (principal); E11.9 Type 2 diabetes mellitus without complications; I10 Essential (primary) hypertension; J44.9 Chronic obstructive pulmonary disease, unspecified; I25.10 Atherosclerotic heart disease of native coronary artery without angina pectoris; K21.9 Gastro-esophageal reflux disease without esophagitis; R20.2 Paresthesia of skin; Z88.6 Allergy status to analgesic agent
CPT/HCPCS: 36415; 71046; 80053; 81001; 83880; 84484; 85025; 87086; 93005; 99285

== ENCOUNTER 2018-06-23 16:06 | Inpatient (IN) | payer MEDICARE ==
[~2018-06-23] VITALS: Ht 154.9 cm; Wt 72.5 kg
[~2018-06-23 16:06] MED LIST changes: -AMLO5TAB2 PO; +AMLO5TAB7 PO; +APIX2.5T PO; -CITA20TA5 PO; +CITA20TA6 PO; +LACT20SO13 PO; +METF10007 PO; +METF500T17 PO; -METF500T4 PO; -ROPI3TAB2 PO; +ROPI3TAB4 PO; +SPIR100T PO; -SPIR25TA3 PO; +SPIR25TA5 PO
[2018-06-23] MEDS ORDERED: PLEASE ENTER HEIGHT AND WEIGHT MC SCH (16:30)
[2018-06-23] MEDS ORDERED: ASPIRIN 81 MG TABLET CHEW PO ONE (16:30)
[2018-06-23] MEDS ORDERED: SODIUM CHLORIDE FLUSH 10ML SYR IVF ONE (16:30)
[2018-06-23 16:45] LABS: INTERNATIONAL NORMALIZED RATIO 1.18 (0.93-1.1); PROTHROMBIN TIME 12.1 Seconds (9.6-11.5)
[2018-06-23 16:49] LABS: ALANINE AMINOTRANSFERASE 18 U/L (12-78); ALBUMIN 2.4 g/dL (3.4-5.0); ANION GAP 6 mmol/L (5-15); CALCIUM 8.1 mg/dL (8.5-10.1); CHLORIDE 113 mmol/L (98-107)
[2018-06-23 16:54] LABS: ALKALINE PHOSPHATASE 92 U/L (45-117); BILIRUBIN,TOTAL 0.9 mg/dL (0.2-1.0); CREATININE 0.68 mg/dL (0.55-1.02); TOTAL PROTEIN 6.3 g/dL (6.4-8.2); TROPONIN I 0.036 ng/mL (0.000-0.045)
[2018-06-23] MEDS ORDERED: ASPIRIN 81 MG TABLET CHEW ONE (16:55)
[2018-06-23 17:24] LABS: BASOPHILS # (AUTO) 0.02 x10^3/uL (0-0.1); BASOPHILS % (AUTO) 1 % (0-1); EOSINOPHILS # (AUTO) 0.04 x10^3/uL (0-0.4); EOSINOPHILS % (AUTO) 2 % (1-7); LYMPHOCYTES % (AUTO) 19 % (22-44); MD MORPH REVIEW ONLY; MEAN CORPUSCULAR HEMOGLOBIN 27.6 pg (27.0-34.8); MEAN CORPUSCULAR HGB CONC 32.7 g/dL (32.4-35.8); MEAN CORPUSCULAR VOLUME 84.4 fL (80-100); MONOCYTES # (AUTO) 0.28 x10^3/uL (0.2-0.8); MONOCYTES % (AUTO) 11 % (2-9); NEUTROPHILS % (AUTO) 68 % (42-75); PLATELET COUNT 81 x10^3/uL (130-400); RED BLOOD COUNT 4.58 x10^6/uL (3.82-5.3); RED CELL DISTRIBUTION WIDTH 16.2 % (9.6-15.2)
[2018-06-23 17:26] LABS: <PLATELET ESTIMATE> DECREASED; <RBC MORPHOLOGY> NORMAL; LARGE PLATELETS 1+
[2018-06-23] MEDS ORDERED: ACETAMINOPHEN 325 MG TABLET PO PRN (18:30)
[2018-06-23] MEDS ORDERED: NITROGLYCERIN 0.4 MG BOTTLE (25 TABS) SL PRN (18:30)
[2018-06-23] MEDS ORDERED: METOCLOPRAMIDE 5 MG/ML, 2ML IVPush PRN (18:30)
[2018-06-23] MEDS ORDERED: hydrALAzine 20 MG/ML, 1ML IVPush PRN (18:30)
[2018-06-23] MEDS ORDERED: NITROGLYCERIN 0.4 MG/SPRAY SL PRN (18:30)
[2018-06-23 18:41] LABS: TROPONIN I 0.027 ng/mL (0.000-0.045)
[2018-06-23] MEDS ORDERED: ALBUTEROL SULFATE 2.5 MG/3 ML NPPB PRN (19:30)
[2018-06-23 19:37] VITALS: BP 167/77
[2018-06-23 21:44] VITALS: BP 167/77
[2018-06-23] MEDS: APIXABAN 2.5 MG TABLET PO SCH (21:56)
[2018-06-23] MEDS: VENLAFAXINE 75 MG CAP ER PO SCH (21:56)
[2018-06-23] MEDS: GABAPENTIN 300 MG CAPSULE PO SCH (21:56)
[2018-06-23] MEDS: TEMAZEPAM 30 MG CAPSULE PO SCH (21:56)
[2018-06-23] MEDS: ATORVASTATIN 40 MG TABLET PO SCH (21:56)
[2018-06-24 01:39] VITALS: BP 142/66
[2018-06-24 08:41] VITALS: BP 159/75
[2018-06-24] MEDS ORDERED: SPIRONOLACTONE 50 MG TABLET ONE ×3 (09:11→09:37)
[2018-06-24] MEDS: VENLAFAXINE 75 MG CAP ER PO SCH ×2 (09:30→20:39)
[2018-06-24] MEDS: MULTIVITAMINS/MINERALS TABLET PO SCH (09:30)
[2018-06-24] MEDS: PANTOPROZOLE 40MG TABLET PO SCH (09:30)
[2018-06-24] MEDS: APIXABAN 2.5 MG TABLET PO SCH ×2 (09:30→20:39)
[2018-06-24] MEDS: GABAPENTIN 300 MG CAPSULE PO SCH ×3 (09:30→20:39)
[2018-06-24] MEDS: FUROSEMIDE 40 MG TABLET PO SCH (09:31)
[2018-06-24] MEDS: metFORMIN 500 MG TABLET PO SCH ×2 (09:31→16:23)
[2018-06-24] MEDS: SPIRONOLACTONE 100 MG TABLET PO SCH (09:40)
[2018-06-24 10:18] LABS: RAPID INFLUENZA A Negative (Negative); RAPID INFLUENZA B Negative (Negative)
[2018-06-24] MEDS ORDERED: REGADENOSON 0.4 MG/5 ML SYRINGE ONE (13:51)
[2018-06-24 14:59] VITALS: BP 136/76
[2018-06-24 18:40] VITALS: BP 144/67
[2018-06-24] MEDS: ATORVASTATIN 40 MG TABLET PO SCH (20:39)
[2018-06-24] MEDS: TEMAZEPAM 30 MG CAPSULE PO SCH (20:39)
[2018-06-24] MEDS: OXYcodone IR 5MG TABLET PO PRN (20:43)
[2018-06-25 00:44] VITALS: BP 135/62
[2018-06-25] MEDS: OXYcodone IR 5MG TABLET PO PRN (01:49)
[2018-06-25] MEDS ORDERED: SPIRONOLACTONE 50 MG TABLET ONE (08:37)
[2018-06-25] MEDS: VENLAFAXINE 75 MG CAP ER PO SCH (08:51)
[2018-06-25] MEDS: PANTOPROZOLE 40MG TABLET PO SCH (08:51)
[2018-06-25] MEDS: metFORMIN 500 MG TABLET PO SCH (08:51)
[2018-06-25] MEDS: SPIRONOLACTONE 100 MG TABLET PO SCH (08:51)
[2018-06-25] MEDS: GABAPENTIN 300 MG CAPSULE PO SCH (08:51)
[2018-06-25] MEDS: FUROSEMIDE 40 MG TABLET PO SCH (08:52)
[2018-06-25] MEDS: APIXABAN 2.5 MG TABLET PO SCH (08:52)
[2018-06-25] MEDS: MULTIVITAMINS/MINERALS TABLET PO SCH (08:52)
[2018-06-25 08:57] VITALS: BP 153/72
== END 2018-06-25 09:54 | disposition home or self-care (01) | DRG 313 ==
LOC: ED 17:21 → EDIP 17:22 → ED 17:49 → 5SO 18:46 → DCLOUNGE 06-25 09:38
PROVIDERS: ADMIT Family Medicine; ATTEND Family Medicine
DX: R07.89 Other chest pain (principal); I81 Portal vein thrombosis; I50.30 Unspecified diastolic (congestive) heart failure; I13.0 Hypertensive heart and chronic kidney disease with heart failure and stage 1 through stage 4 chronic kidney disease, or unspecified chronic kidney disease; I11.0 Hypertensive heart disease with heart failure; F17.210 Nicotine dependence, cigarettes, uncomplicated; I25.10 Atherosclerotic heart disease of native coronary artery without angina pectoris; I45.81 Long QT syndrome; J44.9 Chronic obstructive pulmonary disease, unspecified; N18.1 Chronic kidney disease, stage 1; J84.10 Pulmonary fibrosis, unspecified; K74.60 Unspecified cirrhosis of liver; Z82.49 Family history of ischemic heart disease and other diseases of the circulatory system; Z83.3 Family history of diabetes mellitus; Z82.5 Family history of asthma and other chronic lower respiratory diseases; Z80.9 Family history of malignant neoplasm, unspecified; Z79.01 Long term (current) use of anticoagulants; Z95.1 Presence of aortocoronary bypass graft; Z95.5 Presence of coronary angioplasty implant and graft; Z88.6 Allergy status to analgesic agent; Z88.5 Allergy status to narcotic agent; Z88.8 Allergy status to other drugs, medicaments and biological substances
CPT/HCPCS: 36415; 71045; 78452; 80053; 83880; 84443; 84484; 85025; 85610; 87400; 93005; 93017; 99285; G0378; J2785; A9502; C9898

== ENCOUNTER 2018-08-22 09:46 | Inpatient (IN) | payer MEDICARE ==
[~2018-08-22] VITALS: Ht 154.9 cm; Wt 77.8 kg
[~2018-08-22 09:46] MED LIST changes: +AMLO-150 PO; -AMLO5TAB7 PO; -ASPI-621 PO; +ASPI81TA45 PO; +ATOR20TA37 PO; -ATOR20TA9 PO; +BENZ100C PO
[2018-08-22] MEDS ORDERED: ALBUTEROL/IPRATROPIUM 2.5MG/0.5MG, 3 ML ONE (10:28)
[2018-08-22] MEDS ORDERED: PIPERACILLIN/TAZO/PMX 3.375GM 50 ML IVPB ONE (11:00)
[2018-08-22] MEDS ORDERED: VANCOMYCIN PER PHARMACY MC ONE (11:00)
[2018-08-22] MEDS ORDERED: VANCOMYCIN 1,200 MG in SODIUM CHLORIDE 0.9% 250 ML IV ONE (11:00)
[2018-08-22 11:02] LABS: ALANINE AMINOTRANSFERASE 13 U/L (12-78); ALBUMIN 2.7 g/dL (3.4-5.0); ANION GAP 9 mmol/L (5-15); CALCIUM 7.8 mg/dL (8.5-10.1); CHLORIDE 109 mmol/L (98-107); CREATININE 0.94 mg/dL (0.55-1.02)
[2018-08-22 11:07] LABS: ALKALINE PHOSPHATASE 70 U/L (45-117); BILIRUBIN,TOTAL 2.2 mg/dL (0.2-1.0); MEAN CORPUSCULAR HEMOGLOBIN 29.7 pg (27.0-34.8); MEAN CORPUSCULAR HGB CONC 33.7 g/dL (32.4-35.8); MEAN CORPUSCULAR VOLUME 87.9 fL (80-100); MEAN PLATELET VOLUME 9.8 fL (7.4-10.4); PLATELET COUNT 93 x10^3/uL (130-400); RED BLOOD COUNT 3.99 x10^6/uL (3.82-5.3); RED CELL DISTRIBUTION WIDTH 16.5 % (9.6-15.2); TOTAL PROTEIN 6.7 g/dL (6.4-8.2); TROPONIN I < 0.015 ng/mL (0.000-0.045)
[2018-08-22 11:10] LABS: BASOPHILS # (AUTO) 0.01 x10^3/uL (0-0.1); BASOPHILS % (AUTO) 0 % (0-1); EOSINOPHILS # (AUTO) 0.03 x10^3/uL (0-0.4); EOSINOPHILS % (AUTO) 1 % (1-7); LYMPHOCYTES # (AUTO) 0.68 x10^3/uL (1-3.4); LYMPHOCYTES % (AUTO) 15 % (22-44); MD SCAN; MONOCYTES # (AUTO) 0.51 x10^3/uL (0.2-0.8); MONOCYTES % (AUTO) 11 % (2-9); NEUTROPHILS # (AUTO) 3.26 x10^3/uL (1.8-6.8); NEUTROPHILS % (AUTO) 73 % (42-75)
[2018-08-22] MEDS ORDERED: OMNIPAQUE 350 MG/ML, 100ML BOTTLE ONE (12:17)
[2018-08-22] MEDS ORDERED: ENALAPRILAT 1.25 MG/ML, 2ML IVPush PRN (13:30)
[2018-08-22] MEDS ORDERED: ONDANSETRON 2MG/ML, 2ML IVPush PRN (13:30)
[2018-08-22] MEDS ORDERED: ONDANSETRON ODT 4 MG PO PRN (13:30)
[2018-08-22] MEDS ORDERED: FUROSEMIDE 20 MG/2 ML IV ONE (13:30)
[2018-08-22] MEDS ORDERED: PIPERACILLIN/TAZO/PMX 3.375GM 50 ML ONE (13:57)
[2018-08-22] MEDS ORDERED: FUROSEMIDE 20 MG/2 ML ONE (14:34)
[2018-08-22 15:29] LABS: MICROSCOPIC AUTO
[2018-08-22 15:30] LABS: CULTURE INDICATED? NO
[2018-08-22 16:43] VITALS: BP 137/50
[2018-08-22] MEDS ORDERED: GLUCAGON 1 MG IM PRN (17:00)
[2018-08-22] MEDS ORDERED: DEXTROSE 4 GM TAB.CHEW PO PRN (17:00)
[2018-08-22] MEDS ORDERED: DEXTROSE 50%, 50ML SYRINGE IVPush PRN (17:00)
[2018-08-22] MEDS ORDERED: ALBUTEROL/IPRATROPIUM 2.5MG/0.5MG, 3 ML NPPB PRN (17:00)
[2018-08-22] MEDS ORDERED: AZITHROMYCIN 500 MG TABLET PO ONE (18:00)
[2018-08-22 20:16] VITALS: BP 127/43
[2018-08-22] MEDS: AMPICILLIN/SULBACTAM 3 GM in SODIUM CHLORIDE 0.9% 100 ML IV SCH (20:24)
[2018-08-22] MEDS: SODIUM CHLORIDE FLUSH 10ML SYR IVF SCH (21:00)
[2018-08-22] MEDS: GUAIFENESIN/DM 200-20MG, 10ML UDC PO PRN (22:28)
[2018-08-22] MEDS: INSULIN REGULAR 100 UNITS/ML, 3ML VIAL SQ-INSULIN SCH (22:29)
[2018-08-22] MEDS: GABAPENTIN 300 MG CAPSULE PO SCH (22:30)
[2018-08-22] MEDS: OXYcodone IR 5MG TABLET PO PRN (22:30)
[2018-08-22] MEDS: ROPINIROLE 1MG TABLET PO SCH (22:30)
[2018-08-23 01:15] VITALS: BP 113/58
[2018-08-23] MEDS: AMPICILLIN/SULBACTAM 3 GM in SODIUM CHLORIDE 0.9% 100 ML IV SCH ×2 (02:58→08:10)
[2018-08-23 05:47] LABS: MEAN CORPUSCULAR HEMOGLOBIN 29.7 pg (27.0-34.8); MEAN CORPUSCULAR HGB CONC 33.9 g/dL (32.4-35.8); MEAN CORPUSCULAR VOLUME 87.4 fL (80-100); PLATELET COUNT 84 x10^3/uL (130-400); RED BLOOD COUNT 3.61 x10^6/uL (3.82-5.3)
[2018-08-23 05:54] LABS: ANION GAP 7 mmol/L (5-15); CALCIUM 7.6 mg/dL (8.5-10.1); CHLORIDE 107 mmol/L (98-107); CREATININE 1.04 mg/dL (0.55-1.02)
[2018-08-23 06:02] VITALS: BP 120/43
[2018-08-23] MEDS: OXYcodone IR 5MG TABLET PO PRN (06:03)
[2018-08-23 06:14] LABS: BASOPHILS # (AUTO) 0.02 x10^3/uL (0-0.1); BASOPHILS % (AUTO) 1 % (0-1); EOSINOPHILS # (AUTO) 0.08 x10^3/uL (0-0.4); EOSINOPHILS % (AUTO) 2 % (1-7); LYMPHOCYTES # (AUTO) 0.53 x10^3/uL (1-3.4); LYMPHOCYTES % (AUTO) 15 % (22-44); MD SCAN; MONOCYTES # (AUTO) 0.65 x10^3/uL (0.2-0.8); MONOCYTES % (AUTO) 18 % (2-9); NEUTROPHILS # (AUTO) 2.35 x10^3/uL (1.8-6.8); NEUTROPHILS % (AUTO) 65 % (42-75)
[2018-08-23] MEDS: ASPIRIN 81 MG TABLET EC PO SCH (06:30)
[2018-08-23] MEDS: OMEPRAZOLE 20 MG CAPSULE.DR PO SCH (06:46)
[2018-08-23] MEDS: METOPROLOL SUCCINATE 50 MG TAB.ER.24H PO SCH (06:46)
[2018-08-23] MEDS: INSULIN REGULAR 100 UNITS/ML, 3ML VIAL SQ-INSULIN SCH ×4 (07:00→21:15)
[2018-08-23 07:50] VITALS: BP 124/54
[2018-08-23] MEDS: GABAPENTIN 300 MG CAPSULE PO SCH ×3 (08:09→21:14)
[2018-08-23] MEDS: SODIUM CHLORIDE FLUSH 10ML SYR IVF SCH ×2 (08:10→21:16)
[2018-08-23] MEDS: AZITHROMYCIN 250 MG TABLET PO SCH (08:10)
[2018-08-23] MEDS: ROPINIROLE 1MG TABLET PO SCH ×3 (08:10→21:14)
[2018-08-23 09:03] LABS: RAPID INFLUENZA A Negative (Negative); RAPID INFLUENZA B Negative (Negative)
[2018-08-23] MEDS: GUAIFENESIN/DM 200-20MG, 10ML UDC PO PRN ×2 (11:04→21:14)
[2018-08-23 12:20] VITALS: BP 136/65
[2018-08-23] MEDS: FUROSEMIDE 40 MG TABLET PO SCH (12:34)
[2018-08-23 19:23] VITALS: BP 122/55
[2018-08-24 01:28] VITALS: BP 126/58
[2018-08-24 05:43] LABS: MEAN CORPUSCULAR HEMOGLOBIN 28.8 pg (27.0-34.8); MEAN CORPUSCULAR HGB CONC 32.4 g/dL (32.4-35.8); RED BLOOD COUNT 3.81 x10^6/uL (3.82-5.3)
[2018-08-24 05:47] LABS: CALCIUM 7.5 mg/dL (8.5-10.1); CHLORIDE 105 mmol/L (98-107)
[2018-08-24 05:53] LABS: ALANINE AMINOTRANSFERASE 10 U/L (12-78); ALBUMIN 2.5 g/dL (3.4-5.0); ALKALINE PHOSPHATASE 64 U/L (45-117); ANION GAP 7 mmol/L (5-15); CREATININE 1.04 mg/dL (0.55-1.02); TOTAL PROTEIN 6.2 g/dL (6.4-8.2)
[2018-08-24] MEDS: ASPIRIN 81 MG TABLET EC PO SCH (06:00)
[2018-08-24 06:02] LABS: MEAN PLATELET VOLUME 10.4 fL (7.4-10.4); PLATELET COUNT 79 x10^3/uL (130-400)
[2018-08-24 06:13] LABS: BASOPHILS % (AUTO) 0 % (0-1); EOSINOPHILS % (AUTO) 0 % (1-7); LYMPHOCYTES # (AUTO) 0.32 x10^3/uL (1-3.4); LYMPHOCYTES % (AUTO) 8 % (22-44); MD SCAN; MONOCYTES # (AUTO) 0.61 x10^3/uL (0.2-0.8); MONOCYTES % (AUTO) 15 % (2-9); NEUTROPHILS # (AUTO) 3.13 x10^3/uL (1.8-6.8); NEUTROPHILS % (AUTO) 77 % (42-75)
[2018-08-24] MEDS: OMEPRAZOLE 20 MG CAPSULE.DR PO SCH (06:24)
[2018-08-24] MEDS: METOPROLOL SUCCINATE 50 MG TAB.ER.24H PO SCH (06:24)
[2018-08-24] MEDS: GUAIFENESIN/DM 200-20MG, 10ML UDC PO PRN ×2 (06:25→13:58)
[2018-08-24] MEDS ORDERED: CODEINE SULFATE 30 MG TABLET PO PRN (06:30)
[2018-08-24] MEDS: [UNRECOGNIZED DRUG - REMARK] MC SCH ×3 (07:00→07:55)
[2018-08-24] MEDS: INSULIN REGULAR 100 UNITS/ML, 3ML VIAL SQ-INSULIN SCH ×4 (07:00→21:07)
[2018-08-24 07:24] VITALS: BP 127/53
[2018-08-24] MEDS: ROPINIROLE 1MG TABLET PO SCH ×3 (07:51→21:07)
[2018-08-24] MEDS: FUROSEMIDE 40 MG TABLET PO SCH (07:51)
[2018-08-24] MEDS: AZITHROMYCIN 250 MG TABLET PO SCH (07:52)
[2018-08-24] MEDS: GABAPENTIN 300 MG CAPSULE PO SCH ×3 (07:52→21:07)
[2018-08-24] MEDS: SODIUM CHLORIDE FLUSH 10ML SYR IVF SCH ×2 (07:52→21:07)
[2018-08-24] MEDS: OXYcodone IR 5MG TABLET PO PRN ×2 (08:04→13:58)
[2018-08-24 12:51] VITALS: BP 128/55
[2018-08-24] MEDS: BENZONATATE 100 MG CAPSULE PO SCH ×2 (16:34→21:07)
[2018-08-24 19:48] VITALS: BP 132/58
[2018-08-25 04:56] VITALS: BP 127/60
[2018-08-25 05:13] VITALS: BP 127/60
[2018-08-25 05:14] VITALS: BP 153/72
[2018-08-25] MEDS: OMEPRAZOLE 20 MG CAPSULE.DR PO SCH (05:35)
[2018-08-25] MEDS: METOPROLOL SUCCINATE 50 MG TAB.ER.24H PO SCH (05:36)
[2018-08-25] MEDS: ASPIRIN 81 MG TABLET EC PO SCH (05:37)
[2018-08-25 06:03] LABS: ALBUMIN 2.5 g/dL (3.4-5.0); ANION GAP 6 mmol/L (5-15); CHLORIDE 104 mmol/L (98-107); CREATININE 1.16 mg/dL (0.55-1.02)
[2018-08-25] MEDS: INSULIN REGULAR 100 UNITS/ML, 3ML VIAL SQ-INSULIN SCH ×2 (07:00→11:08)
[2018-08-25 08:05] VITALS: BP 128/46
[2018-08-25] MEDS: BENZONATATE 100 MG CAPSULE PO SCH (08:07)
[2018-08-25] MEDS: GABAPENTIN 300 MG CAPSULE PO SCH (08:07)
[2018-08-25] MEDS: FUROSEMIDE 40 MG TABLET PO SCH (08:07)
[2018-08-25] MEDS: AZITHROMYCIN 250 MG TABLET PO SCH (08:07)
[2018-08-25] MEDS: OXYcodone IR 5MG TABLET PO PRN (08:07)
[2018-08-25] MEDS: GUAIFENESIN/DM 200-20MG, 10ML UDC PO PRN (08:08)
[2018-08-25] MEDS: ROPINIROLE 1MG TABLET PO SCH (08:08)
[2018-08-25] MEDS: SODIUM CHLORIDE FLUSH 10ML SYR IVF SCH (08:10)
[2018-08-25] MEDS ORDERED: SPIRONOLACTONE 25 MG TABLET PO SCH (09:00)
[2018-08-25] MEDS ORDERED: SPIR25TA PO (11:43)
[2018-08-25] MEDS ORDERED: BENZ-17 PO (11:43)
[2018-08-25] MEDS ORDERED: AZIT250T89 PO (11:43)
[2018-08-25] MEDS ORDERED: GUAI5SYR PO (11:43)
[2018-08-25] MEDS ORDERED: PRED20TA PO (11:43)
[2018-08-25] MEDS ORDERED: METO-93 PO (11:43)
== END 2018-08-25 13:29 | disposition home or self-care (01) | DRG 177 ==
LOC: ED 12:14 → EDIP 12:15 → 4WST 15:56
PROVIDERS: ADMIT Family Medicine; ATTEND Family Medicine
PROC: 0W9B3ZZ Drainage of Left Pleural Cavity, Percutaneous Approach (ICD-10-PCS; principal; 2018-08-22)
DX: J15.6 Pneumonia due to other Gram-negative bacteria (principal); E43 Unspecified severe protein-calorie malnutrition; J44.1 Chronic obstructive pulmonary disease with (acute) exacerbation; J90 Pleural effusion, not elsewhere classified; K76.6 Portal hypertension; J44.0 Chronic obstructive pulmonary disease with (acute) lower respiratory infection; I50.32 Chronic diastolic (congestive) heart failure; D69.6 Thrombocytopenia, unspecified; K21.9 Gastro-esophageal reflux disease without esophagitis; I25.10 Atherosclerotic heart disease of native coronary artery without angina pectoris; G25.81 Restless legs syndrome; F17.210 Nicotine dependence, cigarettes, uncomplicated; I11.0 Hypertensive heart disease with heart failure; K80.20 Calculus of gallbladder without cholecystitis without obstruction; K70.31 Alcoholic cirrhosis of liver with ascites; Z79.4 Long term (current) use of insulin; Z95.5 Presence of coronary angioplasty implant and graft; Z83.3 Family history of diabetes mellitus; Z80.7 Family history of other malignant neoplasms of lymphoid, hematopoietic and related tissues; Z82.49 Family history of ischemic heart disease and other diseases of the circulatory system; Z68.32 Body mass index [BMI] 32.0-32.9, adult; Z88.5 Allergy status to narcotic agent; Z88.8 Allergy status to other drugs, medicaments and biological substances
CPT/HCPCS: 32555; 36415; 71045; 74022; 74177; 80048; 80053; 81001; 82040; 82140; 82962; 83605; 83615; 83690; 83880; 83986; 84145; 84157; 84484; 85025; 85379; 87040; 87070; 87205; 87400; 88112; 88305; 89051; 93005; 93306; 94640; 96374; 99285; G0378; J0295; J1815; J2543; J3370; Q0162; Q9967; J1940; J7050; J7512

== ENCOUNTER 2018-12-04 17:15 | Inpatient (IN) | payer MEDICARE ==
[~2018-12-04] VITALS: Ht 154.9 cm; Wt 72.5 kg
[~2018-12-04 17:15] MED LIST changes: +AZIT250T89 PO; +GUAI5SYR PO; +LORA-247 PO; -LORA10TA3 PO; +METO-93 PO; +METO-99 PO; +PRED20TA PO; +SPIR25TA PO
[2018-12-04] MEDS ORDERED: SODIUM CHLORIDE FLUSH 10ML SYR IVF ONE (17:30)
[2018-12-04] MEDS ORDERED: VENL100T PO (17:34)
[2018-12-04] MEDS ORDERED: ASPI-496 PO (17:34)
[2018-12-04] MEDS ORDERED: ATOR20TA37 PO (17:34)
[2018-12-04] MEDS ORDERED: OMEP-110 PO (17:34)
[2018-12-04] MEDS ORDERED: LORA10TA72 PO (17:34)
[2018-12-04] MEDS ORDERED: [UNRECOGNIZED DRUG - OTHER] PO (17:37)
[2018-12-04] MEDS ORDERED: MULT-758 PO (17:37)
[2018-12-04] MEDS ORDERED: OXYC10TA6 PO (17:37)
[2018-12-04] MEDS ORDERED: AREDS PO (17:37)
[2018-12-04] MEDS ORDERED: LOPE1TAB4 PO (17:39)
[2018-12-04 17:44] LABS: MEAN CORPUSCULAR HEMOGLOBIN 28.6 pg (27.0-34.8); MEAN CORPUSCULAR HGB CONC 33.7 g/dL (32.4-35.8); MEAN CORPUSCULAR VOLUME 84.8 fL (80-100); PLATELET COUNT 101 x10^3/uL (130-400); RED BLOOD COUNT 4.54 x10^6/uL (3.82-5.3); RED CELL DISTRIBUTION WIDTH 14.9 % (9.6-15.2)
--- NOTE | 2018-12-04 17:50 | NUR ---
FIRST CONTACT WITH PT: THIS RN ASSISTED PRIMARY RN, MEGHANN, WITH STRAIGHT CATH. PT TOLERATED WITH NO COMPLICATIONS.
[2018-12-04 17:54] LABS: ALANINE AMINOTRANSFERASE 14 U/L (12-78); ALBUMIN 2.5 g/dL (3.4-5.0); ANION GAP 5 mmol/L (5-15); CALCIUM 8.5 mg/dL (8.5-10.1); CHLORIDE 109 mmol/L (98-107); CREATININE 0.66 mg/dL (0.55-1.02)
--- NOTE | 2018-12-04 17:54 | NUR ---
5 LEAD, SPO2, B/P MONITORS IN PLACE. BEDSIDE US IN PROGRESS
[2018-12-04 17:57] LABS: ALKALINE PHOSPHATASE 98 U/L (45-117); BILIRUBIN,TOTAL 2.2 mg/dL (0.2-1.0); TOTAL PROTEIN 6.7 g/dL (6.4-8.2)
[2018-12-04 18:05] LABS: MICROSCOPIC AUTO
[2018-12-04 18:10] LABS: CULTURE INDICATED? YES
[2018-12-04 18:14] LABS: BASOPHILS # (AUTO) 0.02 x10^3/uL (0-0.1); BASOPHILS % (AUTO) 1 % (0-1); EOSINOPHILS # (AUTO) 0.02 x10^3/uL (0-0.4); EOSINOPHILS % (AUTO) 1 % (1-7); LYMPHOCYTES # (AUTO) 0.29 x10^3/uL (1-3.4); LYMPHOCYTES % (AUTO) 13 % (22-44); MONOCYTES # (AUTO) 0.24 x10^3/uL (0.2-0.8); MONOCYTES % (AUTO) 10 % (2-9); NEUTROPHILS # (AUTO) 1.74 x10^3/uL (1.8-6.8); NEUTROPHILS % (AUTO) 75 % (42-75)
[2018-12-04 18:15] LABS: MD MORPH REVIEW ONLY
[2018-12-04 18:19] LABS: <PLATELET ESTIMATE> DECREASED; <PLT MORPHOLOGY> NORMAL PLT MORPH
[2018-12-04] MEDS ORDERED: CEFTRIAXONE PMX 1GM/50ML 50 ML IV ONE (18:30)
--- NOTE | 2018-12-04 18:57 | NUR ---
REPORT RECEIVED FROM MEGHANN MURRAY.
[2018-12-04] MEDS ORDERED: CEFTRIAXONE PMX 1GM/50ML 50 ML ONE (19:00)
--- NOTE | 2018-12-04 19:10 | NUR ---
PT BACK TO ROOM FROM US NOW.
--- NOTE | 2018-12-04 19:17 | NUR ---
PT MEDICATED PER EMAR. PT TOLERATED WELL. PT'S AOX4. RESPS EVEN AND UNLABORED.
--- NOTE | 2018-12-04 19:56 | NUR ---
report given to vicente jacques. all questions answered.
[2018-12-04] MEDS ORDERED: hydrALAzine 20 MG/ML, 1ML IVPush PRN (20:30)
[2018-12-04] MEDS ORDERED: ONDANSETRON ODT 4 MG PO PRN (20:30)
[2018-12-04] MEDS ORDERED: LABETALOL 5MG/ML, 20ML IVPush PRN (20:30)
[2018-12-04 20:36] VITALS: BP 174/80
[2018-12-04] MEDS ORDERED: FUROSEMIDE 20 MG TABLET PO SCH (21:00)
[2018-12-04] MEDS: ROPINIROLE 1MG TABLET PO SCH (21:51)
[2018-12-04] MEDS: GABAPENTIN 300 MG CAPSULE PO SCH (21:51)
[2018-12-04 22:19] VITALS: BP 165/67
[2018-12-04] MEDS ORDERED: ALBUTEROL SULFATE 2.5 MG/3 ML NPPB PRN (22:30)
[2018-12-04] MEDS: OXYcodone/APAP 5/325MG TABLET PO PRN (23:39)
[2018-12-04 23:42] LABS: INTERNATIONAL NORMALIZED RATIO 1.33 (0.93-1.1); PROTHROMBIN TIME 13.8 Seconds (9.6-11.5)
[2018-12-05 00:50] LABS: CLOSTRIDIUM DIFFICILE ANTIGEN NEGATIVE; CLOSTRIDIUM DIFFICILE TOXIN NEGATIVE (Negative)
[2018-12-05 02:30] VITALS: BP 128/75
[2018-12-05] MEDS ORDERED: OMNIPAQUE 350 MG/ML, 100ML BOTTLE ONE (04:55)
[2018-12-05 05:59] LABS: MEAN CORPUSCULAR HEMOGLOBIN 28.5 pg (27.0-34.8); MEAN CORPUSCULAR HGB CONC 33.7 g/dL (32.4-35.8); MEAN CORPUSCULAR VOLUME 84.7 fL (80-100); MEAN PLATELET VOLUME 9.1 fL (7.4-10.4); PLATELET COUNT 103 x10^3/uL (130-400); RED BLOOD COUNT 4.35 x10^6/uL (3.82-5.3); RED CELL DISTRIBUTION WIDTH 14.8 % (9.6-15.2)
[2018-12-05] MEDS: ASPIRIN 81 MG TABLET EC PO SCH (06:01)
[2018-12-05 06:06] LABS: ALANINE AMINOTRANSFERASE 13 U/L (12-78); ALBUMIN 2.3 g/dL (3.4-5.0); ANION GAP 8 mmol/L (5-15); CALCIUM 8.2 mg/dL (8.5-10.1); CHLORIDE 107 mmol/L (98-107); CREATININE 0.65 mg/dL (0.55-1.02)
[2018-12-05 06:08] LABS: ALKALINE PHOSPHATASE 83 U/L (45-117); BILIRUBIN,TOTAL 2.1 mg/dL (0.2-1.0)
[2018-12-05 06:26] LABS: BASOPHILS # (AUTO) 0.02 x10^3/uL (0-0.1); BASOPHILS % (AUTO) 1 % (0-1); EOSINOPHILS # (AUTO) 0.04 x10^3/uL (0-0.4); EOSINOPHILS % (AUTO) 2 % (1-7); LYMPHOCYTES # (AUTO) 0.59 x10^3/uL (1-3.4); LYMPHOCYTES % (AUTO) 24 % (22-44); MD SCAN; MONOCYTES # (AUTO) 0.28 x10^3/uL (0.2-0.8); MONOCYTES % (AUTO) 11 % (2-9); NEUTROPHILS # (AUTO) 1.57 x10^3/uL (1.8-6.8); NEUTROPHILS % (AUTO) 63 % (42-75)
[2018-12-05] MEDS: INSULIN LISPRO 100 UNITS/ML, PEN SQ-INSULIN SCH ×4 (07:00→21:00)
[2018-12-05] MEDS: SPIRONOLACTONE 25 MG TABLET PO SCH (07:52)
[2018-12-05] MEDS: APIXABAN 2.5 MG TABLET PO SCH ×2 (07:52→22:25)
[2018-12-05] MEDS: GABAPENTIN 300 MG CAPSULE PO SCH ×3 (07:53→22:26)
[2018-12-05] MEDS: METOPROLOL TARTRATE 100 MG TABLET PO SCH (07:53)
[2018-12-05] MEDS: FUROSEMIDE 40 MG TABLET PO SCH (07:53)
[2018-12-05] MEDS: OMEPRAZOLE 20 MG CAPSULE.DR PO SCH (07:53)
[2018-12-05] MEDS: MULTIVITAMINS/MINERALS TABLET PO SCH (07:53)
[2018-12-05 08:08] VITALS: BP 141/52
[2018-12-05] MEDS: ONDANSETRON 2MG/ML, 2ML IVPush PRN (09:11)
[2018-12-05] MEDS ORDERED: SODIUM CHLORIDE 0.9%, 500ML IVBOLUS ONE (10:30)
[2018-12-05] MEDS: LOPERAMIDE 2 MG CAPSULE PO PRN (11:04)
[2018-12-05 12:00] VITALS: BP 121/50
[2018-12-05] MEDS ORDERED: CEFTRIAXONE PMX 1GM/50ML 50 ML IV SCH (18:30)
[2018-12-05 20:00] VITALS: BP 110/47
[2018-12-05] MEDS: OXYcodone/APAP 5/325MG TABLET PO PRN (22:25)
[2018-12-05] MEDS: ROPINIROLE 1MG TABLET PO SCH (22:25)
[2018-12-06 00:54] VITALS: BP_SYST 95; BP_SYST 97; BP_DIAS 41
[2018-12-06] MEDS: ASPIRIN 81 MG TABLET EC PO SCH (05:48)
[2018-12-06] MEDS: OXYcodone/APAP 5/325MG TABLET PO PRN ×2 (05:52→17:30)
[2018-12-06] MEDS: INSULIN LISPRO 100 UNITS/ML, PEN SQ-INSULIN SCH ×4 (07:00→21:00)
[2018-12-06 07:40] VITALS: BP 117/40
[2018-12-06] MEDS: FUROSEMIDE 40 MG TABLET PO SCH (10:25)
[2018-12-06] MEDS: MULTIVITAMINS/MINERALS TABLET PO SCH (10:25)
[2018-12-06] MEDS: METOPROLOL TARTRATE 100 MG TABLET PO SCH (10:25)
[2018-12-06] MEDS: APIXABAN 2.5 MG TABLET PO SCH ×2 (10:25→21:28)
[2018-12-06] MEDS: SPIRONOLACTONE 25 MG TABLET PO SCH (10:25)
[2018-12-06] MEDS: GABAPENTIN 300 MG CAPSULE PO SCH ×3 (10:26→21:27)
[2018-12-06] MEDS: OMEPRAZOLE 20 MG CAPSULE.DR PO SCH (10:26)
[2018-12-06 12:58] VITALS: BP 110/44
[2018-12-06 19:05] VITALS: BP 106/46
[2018-12-06] MEDS: ROPINIROLE 1MG TABLET PO SCH (21:27)
[2018-12-06] MEDS: SULFAMETH./TRIMETHOPRIM DS 800MG/160MG TABLET PO SCH (21:27)
[2018-12-06] MEDS: TEMAZEPAM 30 MG CAPSULE PO SCH (21:28)
[2018-12-07 01:38] VITALS: BP 119/47
[2018-12-07] MEDS: ASPIRIN 81 MG TABLET EC PO SCH (06:11)
[2018-12-07] MEDS: OXYcodone/APAP 5/325MG TABLET PO PRN ×2 (06:11→21:58)
[2018-12-07 06:18] LABS: MEAN CORPUSCULAR HEMOGLOBIN 28.7 pg (27.0-34.8); MEAN CORPUSCULAR HGB CONC 33.8 g/dL (32.4-35.8); MEAN CORPUSCULAR VOLUME 84.8 fL (80-100); MEAN PLATELET VOLUME 9.4 fL (7.4-10.4); PLATELET COUNT 102 x10^3/uL (130-400); RED BLOOD COUNT 4.02 x10^6/uL (3.82-5.3); RED CELL DISTRIBUTION WIDTH 15.1 % (9.6-15.2)
[2018-12-07 06:25] LABS: ALANINE AMINOTRANSFERASE 14 U/L (12-78); ANION GAP 5 mmol/L (5-15); CALCIUM 7.8 mg/dL (8.5-10.1); CHLORIDE 107 mmol/L (98-107); CREATININE 0.98 mg/dL (0.55-1.02)
[2018-12-07 06:27] LABS: ALKALINE PHOSPHATASE 70 U/L (45-117); TOTAL PROTEIN 5.4 g/dL (6.4-8.2)
[2018-12-07 06:57] LABS: MD YES
[2018-12-07] MEDS: INSULIN LISPRO 100 UNITS/ML, PEN SQ-INSULIN SCH ×4 (07:00→22:06)
[2018-12-07 07:06] LABS: BASOS#(MANUAL) 0.09 x10^3/uL (0-0.1); BASOS% (MANUAL) 3 % (0-1); EOS#(MANUAL) 0.06 x10^3/uL (0.0-0.4); EOS% (MANUAL) 2 % (1-7); MONOS#(MANUAL) 0.41 x10^3/uL (0.3-2.7); MONOS% (MANUAL) 14 % (2-9); SEG#(MANUAL) 1.62 x10^3/uL (1.8-6.8); SEGS% (MANUAL) 56 % (42-75)
[2018-12-07 07:09] LABS: <PLATELET ESTIMATE> DECREASED; <PLT MORPHOLOGY> NORMAL PLT MORPH; ANISOCYTOSIS 1+; OVALOCYTES 1+
[2018-12-07 07:10] LABS: LYMPH#(MANUAL) 0.73 x10^3/uL (1-3.4); LYMPHS% (MANUAL) 25 % (22-44)
[2018-12-07 07:59] VITALS: BP 109/46
[2018-12-07] MEDS: FUROSEMIDE 40 MG TABLET PO SCH (09:49)
[2018-12-07] MEDS: APIXABAN 2.5 MG TABLET PO SCH ×2 (09:49→21:58)
[2018-12-07] MEDS: SPIRONOLACTONE 25 MG TABLET PO SCH (09:49)
[2018-12-07] MEDS: OMEPRAZOLE 20 MG CAPSULE.DR PO SCH (09:50)
[2018-12-07] MEDS: MULTIVITAMINS/MINERALS TABLET PO SCH (09:50)
[2018-12-07] MEDS: METOPROLOL TARTRATE 100 MG TABLET PO SCH (09:50)
[2018-12-07] MEDS: SULFAMETH./TRIMETHOPRIM DS 800MG/160MG TABLET PO SCH ×2 (09:50→21:57)
[2018-12-07] MEDS: GABAPENTIN 300 MG CAPSULE PO SCH ×3 (09:50→21:58)
[2018-12-07 15:40] VITALS: BP 121/52
[2018-12-07 19:49] VITALS: BP 120/43
[2018-12-07] MEDS: ROPINIROLE 1MG TABLET PO SCH (21:57)
[2018-12-07] MEDS: LOPERAMIDE 2 MG CAPSULE PO PRN (21:57)
[2018-12-07] MEDS: TEMAZEPAM 30 MG CAPSULE PO SCH (21:58)
[2018-12-08 01:29] VITALS: BP 110/46
[2018-12-08] MEDS: ASPIRIN 81 MG TABLET EC PO SCH (06:28)
[2018-12-08 06:29] LABS: MEAN CORPUSCULAR HEMOGLOBIN 28.5 pg (27.0-34.8); MEAN CORPUSCULAR HGB CONC 33.6 g/dL (32.4-35.8); MEAN PLATELET VOLUME 9.6 fL (7.4-10.4); PLATELET COUNT 91 x10^3/uL (130-400); RED BLOOD COUNT 3.98 x10^6/uL (3.82-5.3); RED CELL DISTRIBUTION WIDTH 15.4 % (9.6-15.2)
[2018-12-08 06:39] LABS: ALANINE AMINOTRANSFERASE 12 U/L (12-78); ANION GAP 4 mmol/L (5-15); CALCIUM 7.9 mg/dL (8.5-10.1); CHLORIDE 107 mmol/L (98-107)
[2018-12-08 06:42] LABS: ALKALINE PHOSPHATASE 72 U/L (45-117); BILIRUBIN,TOTAL 0.6 mg/dL (0.2-1.0); TOTAL PROTEIN 5.5 g/dL (6.4-8.2)
[2018-12-08 06:45] LABS: BASOPHILS # (AUTO) 0.03 x10^3/uL (0-0.1); BASOPHILS % (AUTO) 1 % (0-1); EOSINOPHILS # (AUTO) 0.06 x10^3/uL (0-0.4); EOSINOPHILS % (AUTO) 2 % (1-7); LYMPHOCYTES # (AUTO) 0.71 x10^3/uL (1-3.4); LYMPHOCYTES % (AUTO) 26 % (22-44); MD SCAN; MONOCYTES # (AUTO) 0.43 x10^3/uL (0.2-0.8); MONOCYTES % (AUTO) 16 % (2-9); NEUTROPHILS # (AUTO) 1.51 x10^3/uL (1.8-6.8); NEUTROPHILS % (AUTO) 55 % (42-75)
[2018-12-08] MEDS: INSULIN LISPRO 100 UNITS/ML, PEN SQ-INSULIN SCH ×4 (07:00→20:00)
[2018-12-08 08:06] VITALS: BP 132/58
[2018-12-08] MEDS: METOPROLOL TARTRATE 100 MG TABLET PO SCH (09:00)
[2018-12-08] MEDS: SPIRONOLACTONE 25 MG TABLET PO SCH (09:29)
[2018-12-08] MEDS: SULFAMETH./TRIMETHOPRIM DS 800MG/160MG TABLET PO SCH ×2 (09:29→19:59)
[2018-12-08] MEDS: MULTIVITAMINS/MINERALS TABLET PO SCH (09:29)
[2018-12-08] MEDS: OMEPRAZOLE 20 MG CAPSULE.DR PO SCH (09:29)
[2018-12-08] MEDS: FUROSEMIDE 40 MG TABLET PO SCH (09:30)
[2018-12-08] MEDS: LOPERAMIDE 2 MG CAPSULE PO PRN (09:30)
[2018-12-08] MEDS: GABAPENTIN 300 MG CAPSULE PO SCH ×3 (09:30→19:59)
[2018-12-08] MEDS: OXYcodone/APAP 5/325MG TABLET PO PRN ×2 (09:30→20:03)
[2018-12-08] MEDS: APIXABAN 2.5 MG TABLET PO SCH ×2 (09:53→19:59)
[2018-12-08] MEDS ORDERED: SULF-169 PO (11:59)
[2018-12-08 12:29] VITALS: BP 127/49
[2018-12-08 19:25] VITALS: BP 114/41
[2018-12-08] MEDS: ONDANSETRON 2MG/ML, 2ML IVPush PRN (19:36)
[2018-12-08] MEDS: TEMAZEPAM 30 MG CAPSULE PO SCH (19:59)
[2018-12-08] MEDS: ROPINIROLE 1MG TABLET PO SCH (19:59)
[2018-12-09 01:33] VITALS: BP 119/42
[2018-12-09] MEDS: ASPIRIN 81 MG TABLET EC PO SCH (06:28)
[2018-12-09] MEDS: INSULIN LISPRO 100 UNITS/ML, PEN SQ-INSULIN SCH ×4 (07:00→19:49)
[2018-12-09] MEDS: METOPROLOL TARTRATE 100 MG TABLET PO SCH (09:00)
[2018-12-09] MEDS: SPIRONOLACTONE 25 MG TABLET PO SCH (09:05)
[2018-12-09] MEDS: FUROSEMIDE 40 MG TABLET PO SCH (09:06)
[2018-12-09] MEDS: SULFAMETH./TRIMETHOPRIM DS 800MG/160MG TABLET PO SCH ×2 (09:07→19:48)
[2018-12-09] MEDS: GABAPENTIN 300 MG CAPSULE PO SCH ×3 (09:07→19:48)
[2018-12-09] MEDS: MULTIVITAMINS/MINERALS TABLET PO SCH (09:07)
[2018-12-09] MEDS: APIXABAN 2.5 MG TABLET PO SCH ×2 (09:08→19:48)
[2018-12-09] MEDS: OMEPRAZOLE 20 MG CAPSULE.DR PO SCH (09:08)
[2018-12-09 09:22] VITALS: BP 119/50
[2018-12-09] MEDS: LOPERAMIDE 2 MG CAPSULE PO PRN ×2 (12:19→14:29)
[2018-12-09] MEDS: OXYcodone/APAP 5/325MG TABLET PO PRN ×2 (12:19→19:48)
[2018-12-09 13:23] VITALS: BP 137/45
[2018-12-09 14:09] VITALS: BP 117/41
[2018-12-09 19:31] VITALS: BP 121/47
[2018-12-09] MEDS: TEMAZEPAM 30 MG CAPSULE PO SCH (19:48)
[2018-12-09] MEDS: ROPINIROLE 1MG TABLET PO SCH (19:48)
[2018-12-10 02:29] VITALS: BP 124/44
[2018-12-10] MEDS: ASPIRIN 81 MG TABLET EC PO SCH (05:25)
[2018-12-10] MEDS: INSULIN LISPRO 100 UNITS/ML, PEN SQ-INSULIN SCH ×4 (07:00→20:34)
[2018-12-10 07:33] VITALS: BP 131/54
[2018-12-10] MEDS: METOPROLOL TARTRATE 100 MG TABLET PO SCH (08:14)
[2018-12-10] MEDS: SULFAMETH./TRIMETHOPRIM DS 800MG/160MG TABLET PO SCH ×2 (08:14→20:33)
[2018-12-10] MEDS: MULTIVITAMINS/MINERALS TABLET PO SCH (08:14)
[2018-12-10] MEDS: SPIRONOLACTONE 25 MG TABLET PO SCH (08:14)
[2018-12-10] MEDS: FUROSEMIDE 40 MG TABLET PO SCH (08:14)
[2018-12-10] MEDS: GABAPENTIN 300 MG CAPSULE PO SCH ×3 (08:15→20:33)
[2018-12-10] MEDS: OXYcodone/APAP 5/325MG TABLET PO PRN ×2 (08:15→17:49)
[2018-12-10] MEDS: APIXABAN 2.5 MG TABLET PO SCH ×2 (08:15→20:33)
[2018-12-10] MEDS: OMEPRAZOLE 20 MG CAPSULE.DR PO SCH (08:15)
[2018-12-10 12:48] VITALS: BP 120/49
[2018-12-10] MEDS: LOPERAMIDE 2 MG CAPSULE PO PRN (17:49)
[2018-12-10 19:35] VITALS: BP 122/43
[2018-12-10] MEDS: TEMAZEPAM 30 MG CAPSULE PO SCH (20:33)
[2018-12-10] MEDS: ROPINIROLE 1MG TABLET PO SCH (20:33)
[2018-12-11 01:50] VITALS: BP 112/64
[2018-12-11 05:53] LABS: CHLORIDE 102 mmol/L (98-107)
[2018-12-11 06:02] LABS: BASOPHILS # (AUTO) 0.01 x10^3/uL (0-0.1); BASOPHILS % (AUTO) 0 % (0-1); EOSINOPHILS # (AUTO) 0.05 x10^3/uL (0-0.4); EOSINOPHILS % (AUTO) 1 % (1-7); LYMPHOCYTES # (AUTO) 0.58 x10^3/uL (1-3.4); LYMPHOCYTES % (AUTO) 16 % (22-44); MD NO; MEAN CORPUSCULAR HEMOGLOBIN 28.7 pg (27.0-34.8); MEAN CORPUSCULAR HGB CONC 33.5 g/dL (32.4-35.8); MEAN CORPUSCULAR VOLUME 85.7 fL (80-100); MEAN PLATELET VOLUME 10.3 fL (7.4-10.4); MONOCYTES # (AUTO) 0.59 x10^3/uL (0.2-0.8); MONOCYTES % (AUTO) 17 % (2-9); NEUTROPHILS # (AUTO) 2.32 x10^3/uL (1.8-6.8); NEUTROPHILS % (AUTO) 65 % (42-75); PLATELET COUNT 104 x10^3/uL (130-400); RED BLOOD COUNT 3.95 x10^6/uL (3.82-5.3); RED CELL DISTRIBUTION WIDTH 16.2 % (9.6-15.2)
[2018-12-11 06:05] LABS: ALANINE AMINOTRANSFERASE 13 U/L (12-78); ALBUMIN 2.5 g/dL (3.4-5.0); ALKALINE PHOSPHATASE 75 U/L (45-117); ANION GAP 4 mmol/L (5-15); BILIRUBIN,TOTAL 0.8 mg/dL (0.2-1.0); CALCIUM 8.3 mg/dL (8.5-10.1); CREATININE 1.36 mg/dL (0.55-1.02); TOTAL PROTEIN 6.5 g/dL (6.4-8.2)
[2018-12-11] MEDS: ASPIRIN 81 MG TABLET EC PO SCH (06:37)
[2018-12-11] MEDS: INSULIN LISPRO 100 UNITS/ML, PEN SQ-INSULIN SCH ×2 (07:00→12:01)
[2018-12-11] MEDS: OMEPRAZOLE 20 MG CAPSULE.DR PO SCH (08:52)
[2018-12-11] MEDS: APIXABAN 2.5 MG TABLET PO SCH (08:52)
[2018-12-11] MEDS: LOPERAMIDE 2 MG CAPSULE PO PRN (08:53)
[2018-12-11] MEDS: MULTIVITAMINS/MINERALS TABLET PO SCH (08:53)
[2018-12-11] MEDS: SULFAMETH./TRIMETHOPRIM DS 800MG/160MG TABLET PO SCH (08:53)
[2018-12-11] MEDS: OXYcodone/APAP 5/325MG TABLET PO PRN (08:53)
[2018-12-11] MEDS: FUROSEMIDE 40 MG TABLET PO SCH (08:53)
[2018-12-11] MEDS: METOPROLOL TARTRATE 100 MG TABLET PO SCH (08:53)
[2018-12-11] MEDS: GABAPENTIN 300 MG CAPSULE PO SCH (08:53)
[2018-12-11] MEDS: SPIRONOLACTONE 25 MG TABLET PO SCH (08:53)
[2018-12-11 09:04] VITALS: BP 115/54
== END 2018-12-11 16:21 | disposition home or self-care (01) | DRG 433 ==
LOC: ED 17:41 → EDIP 19:01 → 3NE 20:27 → 4WST 22:24 → 3NE 12-05 19:25
PROVIDERS: ADMIT Family Medicine; ATTEND Family Medicine
PROC: 0W9G3ZZ Drainage of Peritoneal Cavity, Percutaneous Approach (ICD-10-PCS; principal; 2018-12-04)
DX: K70.31 Alcoholic cirrhosis of liver with ascites (principal); K76.6 Portal hypertension; E46 Unspecified protein-calorie malnutrition; I85.10 Secondary esophageal varices without bleeding; D68.59 Other primary thrombophilia; D69.6 Thrombocytopenia, unspecified; D72.810 Lymphocytopenia; F17.210 Nicotine dependence, cigarettes, uncomplicated; G47.00 Insomnia, unspecified; I11.0 Hypertensive heart disease with heart failure; I25.10 Atherosclerotic heart disease of native coronary artery without angina pectoris; I50.9 Heart failure, unspecified; K21.9 Gastro-esophageal reflux disease without esophagitis; K52.9 Noninfective gastroenteritis and colitis, unspecified; E11.9 Type 2 diabetes mellitus without complications; K80.20 Calculus of gallbladder without cholecystitis without obstruction; J44.9 Chronic obstructive pulmonary disease, unspecified; N30.91 Cystitis, unspecified with hematuria; Z95.1 Presence of aortocoronary bypass graft; Z90.710 Acquired absence of both cervix and uterus; Z95.5 Presence of coronary angioplasty implant and graft; Z68.30 Body mass index [BMI] 30.0-30.9, adult
CPT/HCPCS: 36415; 49083; 74177; 76700; 80053; 81001; 82042; 82140; 82150; 82274; 82945; 82962; 83615; 84157; 85025; 85610; 85730; 87040; 87070; 87077; 87086; 87186; 87205; 87324; 89051; 96365; 99285; G0378; J0696; J2405; Q0162; Q9967; J1815; J7040

== ENCOUNTER 2019-03-14 09:17 | Emergency (ER) | payer MEDICARE ==
[~2019-03-14] VITALS: Ht 154.9 cm; Wt 74.0 kg
[~2019-03-14 09:17] MED LIST changes: +AREDS PO; +ASPI-496 PO; +ESCI10TA PO; +LINE600T33 PO; +LOPE1TAB4 PO; +METO50TA82 PO; +MULT-758 PO; +VENL100T PO; +[UNRECOGNIZED DRUG - OTHER] PO
--- NOTE | 2019-03-14 09:54 | NUR ---
RECEIVED REPORT FROM MEGHANN MURRAY
[2019-03-14] MEDS ORDERED: SODIUM CHLORIDE FLUSH 10ML SYR IVF ONE ×2 (10:00→10:30)
--- NOTE | 2019-03-14 10:00 | NUR ---
PT BIB [facility] AFTER HAD TROUBLE AROUSING PATIENT THIS AM. PT APPARENTLY HAD N/V LAST NIGHT AD DID NOT SLEEP WELL. PT THEN TOOK A SLEEPING PILL AT 4:00 AM THIS AM AND WAS DIFFICULT TO ARROUSE BY AND NEIGHBORS. 911 WAS CALLED. PT A&OX4. PT WITH BLOOD PRESSURE, CARDIAC AND CONT. PULSE OXIMETER PLACED ON PT.
--- NOTE | 2019-03-14 10:12 | NUR ---
LAB INTO DRAW PT
--- NOTE | 2019-03-14 10:31 | NUR ---
PT WITH LARGE BM AND INCONTINENT. PT CHANGED AND MINI CATHED. URINE WALKED TO LAB. WITH DEMENTIA IN ROOM AND WANTING TO GO HOME. EKG DONE AND PRESENTED TO .
[2019-03-14 10:35] LABS: MEAN CORPUSCULAR HEMOGLOBIN 28.4 pg (27.0-34.8); MEAN CORPUSCULAR HGB CONC 32.2 g/dL (32.4-35.8); MEAN CORPUSCULAR VOLUME 88.3 fL (80-100); MEAN PLATELET VOLUME 9.5 fL (7.4-10.4); PLATELET COUNT 100 x10^3/uL (130-400); RED BLOOD COUNT 3.92 x10^6/uL (3.82-5.3); RED CELL DISTRIBUTION WIDTH 17.7 % (9.6-15.2)
[2019-03-14 10:42] LABS: ALANINE AMINOTRANSFERASE 13 U/L (12-78); ALBUMIN 2.5 g/dL (3.4-5.0); ANION GAP 4 mmol/L (5-15); CALCIUM 8.2 mg/dL (8.5-10.1); CHLORIDE 110 mmol/L (98-107); CREATININE 0.83 mg/dL (0.55-1.02); INTERNATIONAL NORMALIZED RATIO 1.28 (0.93-1.1); PROTHROMBIN TIME 13.3 Seconds (9.6-11.5)
[2019-03-14 10:44] LABS: MICROSCOPIC AUTO
[2019-03-14 10:46] LABS: CULTURE INDICATED? NO
[2019-03-14 10:48] LABS: ALKALINE PHOSPHATASE 75 U/L (45-117); BILIRUBIN,TOTAL 1.5 mg/dL (0.2-1.0); TOTAL PROTEIN 6.5 g/dL (6.4-8.2)
[2019-03-14 10:51] LABS: BASOPHILS # (AUTO) 0.01 x10^3/uL (0-0.1); BASOPHILS % (AUTO) 0 % (0-1); EOSINOPHILS # (AUTO) 0.04 x10^3/uL (0-0.4); EOSINOPHILS % (AUTO) 2 % (1-7); LYMPHOCYTES # (AUTO) 0.53 x10^3/uL (1-3.4); LYMPHOCYTES % (AUTO) 19 % (22-44); MD SCAN; MONOCYTES # (AUTO) 0.47 x10^3/uL (0.2-0.8); MONOCYTES % (AUTO) 16 % (2-9); NEUTROPHILS # (AUTO) 1.81 x10^3/uL (1.8-6.8); NEUTROPHILS % (AUTO) 63 % (42-75)
[2019-03-14] MEDS ORDERED: LIDOCAINE-MPF 1%, 5ML ONE (10:58)
--- NOTE | 2019-03-14 11:10 | NUR ---
PT TAKEN TO IR FOR PARACENTESIS.
[2019-03-14 11:26] LABS: ACETONE, SERUM Negative (Negative)
--- NOTE | 2019-03-14 12:00 | NUR ---
PT REMAINS IN IR FOR PARACENTESIS. AWAITING RETURN.
--- NOTE | 2019-03-14 12:29 | NUR ---
Pt laying back in bed, respirations even and unlabored on RA. NAD noted at this time. Pt using cell phone in bed. Side rails up, call light in reach. Awaiting decision to recheck versus admit. 4.5 L removed during paracentesis.
[2019-03-14 12:31] VITALS: BP 141/59
--- NOTE | 2019-03-14 13:20 | NUR ---
Awaiting chart from ERMD. Pt dressed and ready to go, putting on makeup and using toilet.
== END 2019-03-14 13:46 | disposition home or self-care (01) ==
LOC: ED 10:42
DX: K70.11 Alcoholic hepatitis with ascites (principal); E43 Unspecified severe protein-calorie malnutrition; R58 Hemorrhage, not elsewhere classified; J44.9 Chronic obstructive pulmonary disease, unspecified; I25.10 Atherosclerotic heart disease of native coronary artery without angina pectoris; I11.0 Hypertensive heart disease with heart failure; I50.9 Heart failure, unspecified; E11.9 Type 2 diabetes mellitus without complications; Z87.891 Personal history of nicotine dependence
CPT/HCPCS: 36415; 49083; 71045; 80053; 81001; 82010; 82042; 82140; 83605; 83615; 83690; 83880; 85025; 85610; 85730; 87070; 87205; 89051; 93005; 99285

== ENCOUNTER 2019-04-08 15:18 | Inpatient (IN) | payer MEDICARE ==
[~2019-04-08] VITALS: Ht 154.9 cm; Wt 74.5 kg
[2019-04-12 13:22] VITALS: BP 116/62
== END 2019-04-12 19:30 | disposition home or self-care (01) | DRG 433 ==
LOC: ED 17:14 → EDIP 17:46 → 3NE 19:36
PROVIDERS: ADMIT Family Medicine; ATTEND Family Medicine
PROC: 0W9G3ZZ Drainage of Peritoneal Cavity, Percutaneous Approach (ICD-10-PCS; principal; 2019-04-08)
DX: K70.31 Alcoholic cirrhosis of liver with ascites (principal); K76.6 Portal hypertension; E46 Unspecified protein-calorie malnutrition; N39.0 Urinary tract infection, site not specified; I50.32 Chronic diastolic (congestive) heart failure; K72.10 Chronic hepatic failure without coma; K21.9 Gastro-esophageal reflux disease without esophagitis; J44.9 Chronic obstructive pulmonary disease, unspecified; I27.20 Pulmonary hypertension, unspecified; G47.00 Insomnia, unspecified; R32 Unspecified urinary incontinence; E86.0 Dehydration; I25.10 Atherosclerotic heart disease of native coronary artery without angina pectoris; B19.20 Unspecified viral hepatitis C without hepatic coma; M19.90 Unspecified osteoarthritis, unspecified site; I11.0 Hypertensive heart disease with heart failure; G89.29 Other chronic pain; F32.9 Major depressive disorder, single episode, unspecified; F17.210 Nicotine dependence, cigarettes, uncomplicated; G25.81 Restless legs syndrome; E11.40 Type 2 diabetes mellitus with diabetic neuropathy, unspecified; E83.42 Hypomagnesemia; E78.5 Hyperlipidemia, unspecified; I07.1 Rheumatic tricuspid insufficiency; D64.9 Anemia, unspecified; Z80.8 Family history of malignant neoplasm of other organs or systems; Z95.5 Presence of coronary angioplasty implant and graft; Z95.1 Presence of aortocoronary bypass graft; Z90.710 Acquired absence of both cervix and uterus; Z86.14 Personal history of Methicillin resistant Staphylococcus aureus infection; Z79.4 Long term (current) use of insulin; K52.9 Noninfective gastroenteritis and colitis, unspecified; Z79.899 Other long term (current) drug therapy; Z68.31 Body mass index [BMI] 31.0-31.9, adult
CPT/HCPCS: 36415; 49083; 71045; 76700; 80053; 81001; 82140; 82272; 83690; 83735; 83880; 85025; 85610; 87077; 87086; 87186; 99285; G0378; J0696; Q0162; J3475; J7030

== ENCOUNTER 2019-10-08 21:58 | Observation (INO) | payer MEDICARE, MEDICAID ==
[~2019-10-08] VITALS: Ht 154.9 cm; Wt 76.3 kg
[~2019-10-08 21:58] MED LIST changes: -ACLI400A2 INH; +ACLI400A3 INH; +LINE600T15 PO; -LINE600T33 PO; -MAGN400T7 PO; +MAGN400T9 PO; +MECL-101 PO; -MECL25TA4 PO; +NITR100C PO; +OXYC10TA72 PO; -POTA20LI NG; +POTA20LI2 NG; +RANI-467 PO; -RANI150T23 PO; +SIMV10TA18 PO; -SIMV10TA3 PO
--- NOTE | 2019-10-08 22:19 | NUR ---
assessment made. ERP at bedside. patient brought in by from a halfway : [address]. c/o CP and SOB x 1.5 hrs. anxious
--- NOTE | 2019-10-08 22:20 | NUR ---
lab and extractor operator at bedside.
[2019-10-08] MEDS ORDERED: MORPHINE SULFATE 4 MG/ML, 1ML ONE (22:27)
[2019-10-08 22:29] LABS: BASOPHILS # (AUTO) 0.02 x10^3/uL (0-0.1); BASOPHILS % (AUTO) 1 % (0-1); EOSINOPHILS # (AUTO) 0.05 x10^3/uL (0-0.4); EOSINOPHILS % (AUTO) 1 % (1-7); LYMPHOCYTES # (AUTO) 0.78 x10^3/uL (1-3.4); LYMPHOCYTES % (AUTO) 16 % (22-44); MD NO; MEAN CORPUSCULAR HEMOGLOBIN 30.2 pg (27.0-34.8); MEAN CORPUSCULAR HGB CONC 33.2 g/dL (32.4-35.8); MEAN CORPUSCULAR VOLUME 91.1 fL (80-100); MEAN PLATELET VOLUME 8.7 fL (7.4-10.4); MONOCYTES # (AUTO) 0.62 x10^3/uL (0.2-0.8); MONOCYTES % (AUTO) 12 % (2-9); NEUTROPHILS # (AUTO) 3.55 x10^3/uL (1.8-6.8); NEUTROPHILS % (AUTO) 71 % (42-75); PLATELET COUNT 114 x10^3/uL (130-400); RED BLOOD COUNT 4.05 x10^6/uL (3.82-5.3); RED CELL DISTRIBUTION WIDTH 14.4 % (9.6-15.2)
[2019-10-08] MEDS ORDERED: MORPHINE SULFATE 4 MG/ML, 1ML IVPush PRN (22:30)
[2019-10-08] MEDS ORDERED: PLEASE ENTER ALLERGIES MC SCH (22:30)
[2019-10-08] MEDS ORDERED: PLEASE ENTER HEIGHT AND WEIGHT MC SCH (22:30)
[2019-10-08 22:41] LABS: ALBUMIN 2.3 g/dL (3.4-5.0); ANION GAP 4 mmol/L (5-15); CALCIUM 8.3 mg/dL (8.5-10.1); CHLORIDE 105 mmol/L (98-107); CREATININE 1.05 mg/dL (0.55-1.02)
[2019-10-08] MEDS ORDERED: OXYcodone/APAP 5/325MG TABLET ONE (22:44)
[2019-10-08 22:45] LABS: TROPONIN I < 0.015 ng/mL (0.000-0.045)
[2019-10-08] MEDS ORDERED: OXYcodone/APAP 5/325MG TABLET PO ONE ×2 (23:00)
--- NOTE | 2019-10-08 23:03 | NUR ---
all labs and x ray back. chart up for MD to re-eval.
--- NOTE | 2019-10-08 23:17 | NUR ---
Daughter at bedside.
--- NOTE | 2019-10-08 23:20 | NUR ---
patient states still having pain on her chest.
--- NOTE | 2019-10-08 23:24 | NUR ---
patient at [facility] ( hospice ).
[2019-10-08] MEDS ORDERED: LORazepam 2 MG/ML, 1ML IVPush ONE (23:30)
[2019-10-08] MEDS ORDERED: LORazepam 2 MG/ML, 1ML ONE (23:33)
--- NOTE | 2019-10-08 23:35 | NUR ---
patient medicated for anxiety.
--- NOTE | 2019-10-08 23:52 | NUR ---
patient sleeping at this time.
--- NOTE | 2019-10-09 01:35 | NUR ---
JACKY KEITA at bedside. Sekou ( remote sensing surveyor) [phone]
--- NOTE | 2019-10-09 01:37 | NUR ---
Sekou ( torpedo shooter ) [phone] or [phone]
[2019-10-09 02:14] VITALS: BP 160/66
[2019-10-09] MEDS: FUROSEMIDE 40 MG/4 ML IV SCH ×3 (02:48→17:38)
[2019-10-09] MEDS: OxyconTIN ER 10 MG TAB.ER PO SCH ×2 (02:48→15:00)
[2019-10-09] MEDS: POTASSIUM CHLORIDE 20 MEQ TAB.ER.PRT PO SCH ×3 (02:48→17:38)
[2019-10-09 06:06] LABS: ANION GAP 5 mmol/L (5-15); CALCIUM 7.7 mg/dL (8.5-10.1); CHLORIDE 104 mmol/L (98-107)
[2019-10-09 06:09] LABS: CREATININE 0.92 mg/dL (0.55-1.02)
[2019-10-09 07:03] VITALS: BP 130/62
[2019-10-09] MEDS: OMEPRAZOLE 20 MG CAPSULE.DR PO SCH (09:09)
[2019-10-09] MEDS: ESCITALOPRAM 10MG TABLET PO SCH (09:09)
[2019-10-09] MEDS: SPIRONOLACTONE 100 MG TABLET PO SCH (09:10)
[2019-10-09] MEDS: BENZONATATE 100 MG CAPSULE PO SCH ×3 (09:10→21:25)
[2019-10-09] MEDS: LORATADINE 10 MG TABLET PO SCH (09:10)
[2019-10-09] MEDS: GABAPENTIN 300 MG CAPSULE PO SCH ×3 (09:10→21:26)
[2019-10-09] MEDS: ENOXAPARIN 40 MG/0.4 ML SQ SCH (09:10)
[2019-10-09] MEDS: METOPROLOL TARTRATE 50 MG TAB PO SCH ×2 (09:10→17:38)
[2019-10-09] MEDS: MULTIVITAMINS WITH IRON TABLET PO SCH (09:10)
[2019-10-09] MEDS: ASPIRIN 81 MG TABLET EC PO SCH (09:10)
[2019-10-09 13:39] VITALS: BP 153/72
[2019-10-09 18:54] VITALS: BP 116/56
[2019-10-09] MEDS ORDERED: ATORVASTATIN 20 MG TABLET PO SCH (21:00)
[2019-10-09] MEDS: LACTULOSE 20 GM/30 ML UDC PO SCH (21:25)
[2019-10-09] MEDS: ROPINIROLE 1MG TABLET PO SCH (21:26)
[2019-10-09 22:11] VITALS: BP 124/69
[2019-10-10 01:07] VITALS: BP 132/63
[2019-10-10] MEDS: OxyconTIN ER 10 MG TAB.ER PO SCH ×2 (03:20→15:29)
[2019-10-10 04:50] LABS: MEAN CORPUSCULAR HEMOGLOBIN 30.3 pg (27.0-34.8); MEAN CORPUSCULAR VOLUME 91.7 fL (80-100); MEAN PLATELET VOLUME 8.8 fL (7.4-10.4); PLATELET COUNT 99 x10^3/uL (130-400); RED BLOOD COUNT 3.27 x10^6/uL (3.82-5.3); RED CELL DISTRIBUTION WIDTH 14.3 % (9.6-15.2)
[2019-10-10 04:52] LABS: ANION GAP 2 mmol/L (5-15); CALCIUM 7.8 mg/dL (8.5-10.1); CHLORIDE 108 mmol/L (98-107); CREATININE 0.96 mg/dL (0.55-1.02)
[2019-10-10] MEDS: METOPROLOL TARTRATE 50 MG TAB PO SCH ×2 (05:43→17:18)
[2019-10-10 06:04] LABS: BASOPHILS # (AUTO) 0.02 x10^3/uL (0-0.1); BASOPHILS % (AUTO) 1 % (0-1); EOSINOPHILS # (AUTO) 0.09 x10^3/uL (0-0.4); EOSINOPHILS % (AUTO) 3 % (1-7); LYMPHOCYTES # (AUTO) 0.74 x10^3/uL (1-3.4); LYMPHOCYTES % (AUTO) 22 % (22-44); MD SCAN; MONOCYTES % (AUTO) 15 % (2-9); NEUTROPHILS # (AUTO) 2.03 x10^3/uL (1.8-6.8); NEUTROPHILS % (AUTO) 60 % (42-75)
[2019-10-10 06:49] VITALS: BP 130/69
[2019-10-10] MEDS: FUROSEMIDE 40 MG/4 ML IV SCH ×2 (08:15→15:29)
[2019-10-10] MEDS: HYDROmorphone 2 MG/ML, 1ML IVPush PRN (08:16)
[2019-10-10] MEDS: OMEPRAZOLE 20 MG CAPSULE.DR PO SCH (08:16)
[2019-10-10] MEDS: ENOXAPARIN 40 MG/0.4 ML SQ SCH (08:16)
[2019-10-10] MEDS: LACTULOSE 20 GM/30 ML UDC PO SCH ×2 (08:16→21:00)
[2019-10-10] MEDS: ESCITALOPRAM 10MG TABLET PO SCH (08:16)
[2019-10-10] MEDS: BENZONATATE 100 MG CAPSULE PO SCH ×3 (08:17→21:11)
[2019-10-10] MEDS: MULTIVITAMINS WITH IRON TABLET PO SCH (08:17)
[2019-10-10] MEDS: SPIRONOLACTONE 100 MG TABLET PO SCH (08:17)
[2019-10-10] MEDS: LORATADINE 10 MG TABLET PO SCH (08:17)
[2019-10-10] MEDS: POTASSIUM CHLORIDE 20 MEQ TAB.ER.PRT PO SCH (08:17)
[2019-10-10] MEDS: ASPIRIN 81 MG TABLET EC PO SCH (08:17)
[2019-10-10] MEDS: GABAPENTIN 300 MG CAPSULE PO SCH ×3 (08:17→21:11)
[2019-10-10 12:13] VITALS: BP 124/71
[2019-10-10] MEDS ORDERED: POTA20TA6 PO (14:33)
[2019-10-10] MEDS ORDERED: LACT20SO13 PO (14:33)
[2019-10-10 18:35] VITALS: BP 126/76
[2019-10-10] MEDS: ROPINIROLE 1MG TABLET PO SCH (21:11)
[2019-10-11 00:49] VITALS: BP 137/70
[2019-10-11] MEDS: OxyconTIN ER 10 MG TAB.ER PO SCH (02:13)
[2019-10-11 05:10] LABS: ANION GAP 4 mmol/L (5-15); CALCIUM 7.9 mg/dL (8.5-10.1); CHLORIDE 106 mmol/L (98-107)
[2019-10-11] MEDS: METOPROLOL TARTRATE 50 MG TAB PO SCH (06:01)
[2019-10-11] MEDS: HYDROmorphone 2 MG/ML, 1ML IVPush PRN (06:02)
[2019-10-11 08:40] VITALS: BP 135/71
[2019-10-11] MEDS ORDERED: POTASSIUM CHLORIDE 20 MEQ TAB.ER.PRT PO SCH (09:00)
[2019-10-11] MEDS: ASPIRIN 81 MG TABLET EC PO SCH (09:01)
[2019-10-11] MEDS: LACTULOSE 20 GM/30 ML UDC PO SCH (09:01)
[2019-10-11] MEDS: BENZONATATE 100 MG CAPSULE PO SCH (09:02)
[2019-10-11] MEDS: FUROSEMIDE 40 MG/4 ML IV SCH (09:02)
[2019-10-11] MEDS: GABAPENTIN 300 MG CAPSULE PO SCH (09:02)
[2019-10-11] MEDS: ESCITALOPRAM 10MG TABLET PO SCH (09:02)
[2019-10-11] MEDS: ENOXAPARIN 40 MG/0.4 ML SQ SCH (09:08)
[2019-10-11] MEDS: OMEPRAZOLE 20 MG CAPSULE.DR PO SCH (09:08)
[2019-10-11] MEDS: MULTIVITAMINS WITH IRON TABLET PO SCH (09:09)
[2019-10-11] MEDS: LORATADINE 10 MG TABLET PO SCH (09:09)
[2019-10-11] MEDS: SPIRONOLACTONE 100 MG TABLET PO SCH (09:13)
== END 2019-10-11 11:32 | disposition home or self-care (01) ==
LOC: EDBD → MERGE 21:58 → ED 10-09 01:54 → 4NW 10-09 01:55 → INTOOBSV 10-09 01:55
PROVIDERS: ADMIT Family Medicine; ATTEND Family Medicine
DX: I11.0 Hypertensive heart disease with heart failure (principal); I50.9 Heart failure, unspecified; R07.89 Other chest pain; R06.02 Shortness of breath; K70.30 Alcoholic cirrhosis of liver without ascites; K76.6 Portal hypertension; I85.00 Esophageal varices without bleeding; I25.10 Atherosclerotic heart disease of native coronary artery without angina pectoris; E11.9 Type 2 diabetes mellitus without complications; J44.9 Chronic obstructive pulmonary disease, unspecified; K21.9 Gastro-esophageal reflux disease without esophagitis; E78.5 Hyperlipidemia, unspecified; M19.90 Unspecified osteoarthritis, unspecified site; J81.1 Chronic pulmonary edema; E87.70 Fluid overload, unspecified; E87.6 Hypokalemia; Z95.1 Presence of aortocoronary bypass graft; Z79.899 Other long term (current) drug therapy; Z79.82 Long term (current) use of aspirin; Z87.891 Personal history of nicotine dependence
CPT/HCPCS: 36415; 71045; 80048; 82040; 83735; 83880; 84484; 85025; 93005; 93971; 96372; 96374; 96375; 96376; 97162; 97165; 99285; G0378; J1170; J1650; J1940; J2060